=== PATIENT | female | born 1950 | race Caucasian/White ===

== ENCOUNTER 2020-01-19 00:49 | Emergency (ER) | payer MEDICARE, MEDICAID ==
[~2020-01-19] VITALS: Ht 154.9 cm; Wt 63.6 kg
[2020-01-19] MEDS ORDERED: ondansetron/PF 4mg/2ml inj IV ONE ×2 (01:20→02:10)
[2020-01-19] MEDS ORDERED: ketorolac trometh. 30mg/ml inj. IV ONE (01:30)
[2020-01-19] MEDS ORDERED: normal saline 1000ML IV soln IVB ONE (01:30)
[2020-01-19] MEDS ORDERED: morphine 4 MG/ML inj SYRINge IV ONE (02:10)
[2020-01-19 02:43] LABS: BASOPHILS % (AUTO) 0.3 % (0-1); EOSINOPHILS # (AUTO) 0.1 X10'3 (0-0.9); EOSINOPHILS % (AUTO) 0.8 % (0-6); HEMATOCRIT 38.5 % (35.0-45.0); LYMPHOCYTES # (AUTO) 1.2 X10'3 (1.1-4.8); LYMPHOCYTES % (AUTO) 15.5 % (21-51); MEAN CORPUSCULAR HEMOGLOBIN 30.5 PG (27.0-31.0); MEAN CORPUSCULAR HGB CONC 33.7 g/dL (33.0-36.5); MEAN CORPUSCULAR VOLUME 90.7 FL (78-98); MEAN PLATELET VOLUME 9.2 FL (7.4-10.4); MONOCYTES # (AUTO) 0.4 X10'3 (0-0.9); MONOCYTES % (AUTO) 4.6 % (2-12); NEUTROPHILS # (AUTO) 6.3 X10'3 (1.8-7.7); NEUTROPHILS % (AUTO) 78.8 % (42-75); PLATELET COUNT 211 X10'3 (140-440); RED BLOOD COUNT 4.25 X10'6 (4.20-5.60); RED CELL DISTRIBUTION WIDTH 15.5 % (11.5-14.5)
[2020-01-19] MEDS ORDERED: LORazepam 2 mg/ml vial IV ONE (03:15)
[2020-01-19] MEDS ORDERED: iohexol 350MG/ML 100ml bottle IV ONE (03:18)
[2020-01-19] MEDS ORDERED: [UNRECOGNIZED DRUG - REMARK] PO NR (03:30)
[2020-01-19 03:43] LABS: CLARITY,URINE SLIGHTLY CLOUDY (Clear); COLOR,URINE YELLOW (Yellow); GLUCOSE, URINE NEGATIVE (Neg); KETONES,URINE 15 mg/dl (Neg); LEUKOCYTE ESTERASE ,URINE NEGATIVE (Neg); NITRITES, URINE NEGATIVE (Neg); OCCULT BLOOD,URINE NEGATIVE (Neg); PH,URINE 6.5 (4.8-8.0); PROTEIN,URINE NEGATIVE (Neg); UROBILINOGEN,URINE 0.2 E.U/dL (0.2-1.0)
[2020-01-19 03:54] LABS: UA COLLECTION TYPE CLN CATCH MIDSTREAM
[2020-01-19 03:55] LABS: BACTERIA,URINE 2+ /HPF (Neg); RBC,URINE NONE SEEN /HPF (0-2); SQUAMOUS EPITHELIAL CELL,UR FEW /LPF (FEW)
[2020-01-19 04:15] LABS: CHLORIDE 103 MMOL/L (99-107); POTASSIUM 3.4 MMOL/L (3.5-5.1); SODIUM 138 MMOL/L (135-145)
[2020-01-19 04:47] LABS: ALBUMIN 3.4 G/DL (3.4-5.0); ANION GAP 11 (8-16); BLOOD UREA NITROGEN 11 MG/DL (7-18); BUN/CREATININE RATIO 16.4 (6.6-38.0); CREATININE 0.67 MG/DL (0.40-0.90); GLUCOSE 68 MG/DL (70-104); TOTAL CARBON DIOXIDE 24.4 MMOL/L (24-32); eGFR 88 ML/MIN
[2020-01-19 06:40] VITALS: BP 136/63
[2020-01-19] MEDS ORDERED: diazepam 5mg tablet PO ONE (06:40)
== END 2020-01-19 06:47 | disposition home or self-care (01) ==
LOC: ER 00:50
DX: R10.9 Unspecified abdominal pain (principal); Z72.0 Tobacco use
CPT/HCPCS: 36415; 71275; 74176; 74177; 80048; 81001; 85025; 87077; 87088; 87186; 93005; 96361; 96374; 96375; 96376; 99285; J1885; J2060; J2270; J2405; J7030; Q9967

== ENCOUNTER 2021-09-18 11:58 | Inpatient (IN) | payer MEDICARE, MEDICAID ==
[2021-09-18] VITALS (11 sets, daily range): BP systolic 87–128; BP diastolic 35–48
[~2021-09-18] VITALS: Ht 137.2 cm; Wt 59.1 kg
[~2021-09-18 11:58] MED LIST: ACET-1 PO; ASPI-1071 PO; ATOR-2 PO; CYAN-51 PO; CYCL5TAB PO; ERGO500054 PO; ISOS60TA71 PO; LANTUS SQ; LEFL10TA20 PO; LOSA50TA64 PO; METF-1203 PO; METO-539 PO; NOVLG SQ; SPIR25TA PO; TICA90TA PO
[2021-09-18] MEDS ORDERED: normal saline 1000ml 1,000 ML IV ONE ×3 (12:20→18:00)
--- NOTE | 2021-09-18 12:34 | NUR ---
PROVIDER AT BEDSIDE.
[2021-09-18 12:38] LABS: BASOPHILS % (AUTO) 0.2 % (0-1); EOSINOPHILS # (AUTO) 0.1 X10'3 (0-0.9); EOSINOPHILS % (AUTO) 0.5 % (0-6); HEMOGLOBIN 11.9 g/dl (12.0-16.0); LYMPHOCYTES # (AUTO) 1.5 X10'3 (1.1-4.8); LYMPHOCYTES % (AUTO) 9.8 % (21-51); MEAN PLATELET VOLUME 10.6 FL (7.4-10.4); MONOCYTES % (AUTO) 6.3 % (2-12); NEUTROPHILS # (AUTO) 13.1 X10'3 (1.8-7.7); NEUTROPHILS % (AUTO) 83.2 % (42-75); PLATELET COUNT 307 X10'3 (140-440); WHITE BLOOD COUNT 15.7 X10'3 (4.5-11.0)
[2021-09-18] MEDS ORDERED: insulin NPH/REG insulin (NovoLIN 70/30) 10ml vial SQ SCH (12:40)
[2021-09-18] MEDS ORDERED: insulin regular, human 10 units/0.1 ml syringe SQ ONE (12:45)
[2021-09-18 13:02] LABS: CLARITY,URINE SLIGHTLY CLOUDY (Clear); GLUCOSE, URINE >=1000 mg/dl (Neg); KETONES,URINE >=80 mg/dl (Neg); LEUKOCYTE ESTERASE ,URINE NEGATIVE (Neg); NITRITES, URINE POSITIVE (Neg); OCCULT BLOOD,URINE TRACE-INTACT (Neg); PH,URINE 5.5 (4.8-8.0); PROTEIN,URINE NEGATIVE (Neg); UROBILINOGEN,URINE 0.2 E.U/dL (0.2-1.0)
[2021-09-18 13:02] LABS: ALANINE AMINOTRANSFERASE 16 U/L (12-78); ALBUMIN 3.2 G/DL (3.4-5.0); ALBUMIN/GLOBULIN RATIO 0.9 (1.1-1.5); ALKALINE PHOSPHATASE 69 IU/L (46-116); ANION GAP 36 (8-16); ASPARTATE AMINO TRANSFERASE 13 U/L (10-37); BILIRUBIN,TOTAL 0.6 MG/DL (0.1-1.0); BLOOD UREA NITROGEN 34 MG/DL (7-18); BUN/CREATININE RATIO 17.6 (6.6-38.0); CALCIUM 8.8 MG/DL (8.5-10.1); CHLORIDE 82 MMOL/L (99-107); CREATININE 1.93 MG/DL (0.40-0.90); SODIUM 123 MMOL/L (135-145); TOTAL PROTEIN 6.9 G/DL (6.4-8.2); eGFR 26 ML/MIN
[2021-09-18 13:06] LABS: URINE AMPHETAMINE SCREEN NEGATIVE (Neg); URINE BARBITUATE SCREEN NEGATIVE (Neg); URINE BENZODIAZEPINES SCREEN NEGATIVE (Neg); URINE CANNABINOID SCREEN NEGATIVE (Neg); URINE COCAINE SCREEN NEGATIVE (Neg); URINE METHADONE SCREEN NEGATIVE (Neg); URINE OPIATE SCREEN POSITIVE (Neg); URINE PHENCYCLIDINE SCREEN NEGATIVE (Neg)
[2021-09-18 13:14] LABS: HEMATOCRIT 35.3 % (35.0-45.0); RED BLOOD COUNT 3.91 X10'6 (4.20-5.60)
[2021-09-18 13:15] LABS: MEAN CORPUSCULAR HEMOGLOBIN 30.3 PG (27.0-31.0); MEAN CORPUSCULAR HGB CONC 33.6 g/dL (33.0-36.5); MEAN CORPUSCULAR VOLUME 90.4 FL (78-98); RED CELL DISTRIBUTION WIDTH 14.7 % (11.5-14.5)
--- NOTE | 2021-09-18 13:15 | NUR ---
G drawn critical results hand delivered to Bruce WISE and Dr. Golden, no new orders given.
[2021-09-18 13:16] LABS: COLOR,URINE STRAW (Yellow); UA COLLECTION TYPE STRAIGHT CATH
[2021-09-18 13:18] LABS: RBC,URINE 0-2 /HPF (0-2)
[2021-09-18 13:19] LABS: AMORPHOUS URATES 1+; BACTERIA,URINE 1+ /HPF (Neg); HYALINE CASTS 0-3 /LPF (NEGATIVE); MUCUS STRANDS NONE SEEN /LPF (Neg); RENAL CELLS, URINE FEW /HPF; SQUAMOUS EPITHELIAL CELL,UR NONE SEEN /LPF (FEW); WBC CLUMPS,URINE FEW /HPF (NEGATIVE)
[2021-09-18 13:24] LABS: ABG BASE EXCESS -22.9 mmol/L (-2.0-2.0); ABG HCO3 4.8 mmol/L (22.0-26.0); ABG OXYGEN SATURATION 96.7 % (94-97); ABG PO2 (T) 111.9 mmHg (75.0-100.0); ALLEN'S TEST POSITIVE; FCOHb 0.4 % (0.0-3.9); FMetHb 0.1 % (0.0-1.5); FO2Hb 96.2 % (94-97); TOTAL HEMOGLOBIN 11.7 G/dl (12.0-16.0)
[2021-09-18] MEDS ORDERED: normal saline 1000ML IV soln IVB ONE (13:25)
[2021-09-18] MEDS ORDERED: Insulin Reg/NS 100units/100mL 100 ML IV PRN (13:25)
[2021-09-18] MEDS ORDERED: cefTRIAXone 1g/NS 100ml IVPB 100 ML IV ONE (13:25)
[2021-09-18 13:37] LABS: POTASSIUM 6.6 MMOL/L (3.5-5.1); TOTAL CARBON DIOXIDE 5.5 MMOL/L (24-32)
[2021-09-18 13:39] LABS: GLUCOSE 1160 MG/DL (70-104)
[2021-09-18 13:56] LABS: TOTAL CELLS COUNTED 100
[2021-09-18 13:57] LABS: ANISOCYTOSIS 1+; GIANT PLATELET FEW; PLATELET ESTIMATE NORMAL; TOXIC GRANULATION 1+
[2021-09-18 13:58] LABS: LARGE PLATELETS FEW
[2021-09-18] MEDS ORDERED: morphine 4 MG/ML inj SYRINge IV PRN (14:45)
[2021-09-18] MEDS ORDERED: ondansetron/PF 4mg/2ml inj IV PRN (14:45)
[2021-09-18] MEDS ORDERED: magnesium hydroxide 30ml (MOM) UD suspension PO PRN (14:45)
[2021-09-18] MEDS ORDERED: acetaminophen 325mg tablet PO PRN ×2 (14:45)
[2021-09-18] MEDS ORDERED: LIDOcaine 2% 10ml TOPICAL JELLY (Urojet) TP ONE ×2 (14:45→18:20)
--- NOTE | 2021-09-18 15:20 | NUR ---
TELEPHONE REPORT TO JAIR MILES.
[2021-09-18 15:55] LABS: ALBUMIN 3.1 G/DL (3.4-5.0); BLOOD UREA NITROGEN 34 MG/DL (7-18); BUN/CREATININE RATIO 18.4 (6.6-38.0); CALCIUM 8.3 MG/DL (8.5-10.1); CHLORIDE 93 MMOL/L (99-107); CREATININE 1.85 MG/DL (0.40-0.90); POTASSIUM 5.5 MMOL/L (3.5-5.1); SODIUM 131 MMOL/L (135-145); eGFR 27 ML/MIN
[2021-09-18] MEDS ORDERED: cyclobenzaprine 10mg tablet PO PRN (15:55)
[2021-09-18] MEDS ORDERED: heparin, porcine 5000 units/ml vial SQ SCH (16:00)
[2021-09-18 16:11] LABS: ANION GAP 33 (8-16)
[2021-09-18 16:12] LABS: GLUCOSE 985 MG/DL (70-104)
[2021-09-18 16:13] LABS: TOTAL CARBON DIOXIDE < 5 MMOL/L (24-32)
[2021-09-18] MEDS: normal saline 1000ml 1,000 ML IV SCH ×3 (17:00→22:45)
--- NOTE | 2021-09-18 17:14 | NUR ---
Family @ bedside for Admission. Grand daughter very helpful and knowledgable about grandmothers medical care. Granddaughter states patient had some mild chest discomfort during the day with some nausea and vomiting noted after eating.
[2021-09-18] MEDS ORDERED: heparin 10,000 units/1 ML INJ IV ONE (18:00)
[2021-09-18] MEDS ORDERED: heparin 10,000 units/1 ML INJ IV PRN (18:00)
--- NOTE | 2021-09-18 18:30 | NUR ---
Patient in room CICU 2007. I have received report from Marco ADAM and had the opportunity to ask questions and assume patient care. Patient hypotensive, 1LNS bolus started.
[2021-09-18 18:57] LABS: BASOPHILS % (AUTO) 0.2 % (0-1); EOSINOPHILS % (AUTO) 0.1 % (0-6); HEMATOCRIT 37.7 % (35.0-45.0); HEMOGLOBIN 11.7 g/dl (12.0-16.0); LYMPHOCYTES # (AUTO) 2.4 X10'3 (1.1-4.8); LYMPHOCYTES % (AUTO) 11.7 % (21-51); MEAN CORPUSCULAR HEMOGLOBIN 30.3 PG (27.0-31.0); MEAN CORPUSCULAR VOLUME 97.9 FL (78-98); MEAN PLATELET VOLUME 9.6 FL (7.4-10.4); NEUTROPHILS # (AUTO) 16.6 X10'3 (1.8-7.7); PLATELET COUNT 258 X10'3 (140-440); RED BLOOD COUNT 3.85 X10'6 (4.20-5.60); RED CELL DISTRIBUTION WIDTH 16.5 % (11.5-14.5)
[2021-09-18 19:04] LABS: APTT 25 SECONDS (22-32)
[2021-09-18 19:16] LABS: ALBUMIN 3.1 G/DL (3.4-5.0); ANION GAP 28 (8-16); BLOOD UREA NITROGEN 29 MG/DL (7-18); BUN/CREATININE RATIO 17.9 (6.6-38.0); CALCIUM 8.2 MG/DL (8.5-10.1); CHLORIDE 98 MMOL/L (99-107); CREATININE 1.62 MG/DL (0.40-0.90); MAGNESIUM 1.9 MG/DL (1.5-2.4); POTASSIUM 4.2 MMOL/L (3.5-5.1); SODIUM 136 MMOL/L (135-145); eGFR 32 ML/MIN
[2021-09-18 19:21] LABS: GLUCOSE 583 MG/DL (70-104)
[2021-09-18 19:22] LABS: TOTAL CARBON DIOXIDE 9.7 MMOL/L (24-32)
[2021-09-18] MEDS: ticagrelor 90mg tablet PO SCH (20:00)
[2021-09-18] MEDS ORDERED: NPH, human insulin isophane inj. SQ SCH (20:00)
[2021-09-18] MEDS: heparin 25,000 UNIT/250ml bag 250 ML IV SCH (20:11)
[2021-09-18] MEDS ORDERED: dextrose 50%-water 50ml dispensing syringe IV ONE (20:40)
--- NOTE | 2021-09-18 20:40 | NUR ---
Central line placed by . Orders received.
[2021-09-18] MEDS ORDERED: Dextrose 10%-water IV solution 1,000 ML IV SCH (20:50)
[2021-09-18] MEDS ORDERED: NORMAL SALINE IVB ONE (21:35)
[2021-09-19] VITALS (24 sets, daily range): BP systolic 91–145; BP diastolic 41–67
[2021-09-19] MEDS ORDERED: normal saline 1000ml 1,000 ML IVB ONE ×2 (00:05→03:50)
[2021-09-19] MEDS ORDERED: dextrose 50%-water 50ml dispensing syringe IV ONE (00:05)
--- NOTE | 2021-09-19 00:05 | NUR ---
Dr. Beth updated on patient's condition, including latest blood sugar. Orders received. 1LNS fluid bolus started. Awaiting current lab results.
[2021-09-19 00:38] LABS: BASOPHILS % (AUTO) 0.1 % (0-1); EOSINOPHILS % (AUTO) 0 % (0-6); HEMATOCRIT 28.3 % (35.0-45.0); HEMOGLOBIN 9.4 g/dl (12.0-16.0); LYMPHOCYTES # (AUTO) 1.7 X10'3 (1.1-4.8); LYMPHOCYTES % (AUTO) 11.6 % (21-51); MEAN CORPUSCULAR HGB CONC 33.2 g/dL (33.0-36.5); MEAN CORPUSCULAR VOLUME 90.4 FL (78-98); MEAN PLATELET VOLUME 9.3 FL (7.4-10.4); MONOCYTES # (AUTO) 1.3 X10'3 (0-0.9); NEUTROPHILS # (AUTO) 11.3 X10'3 (1.8-7.7); NEUTROPHILS % (AUTO) 79.3 % (42-75); PLATELET COUNT 219 X10'3 (140-440); RED BLOOD COUNT 3.13 X10'6 (4.20-5.60); RED CELL DISTRIBUTION WIDTH 14.9 % (11.5-14.5); WHITE BLOOD COUNT 14.2 X10'3 (4.5-11.0)
[2021-09-19] MEDS: morphine 2 MG/ML inj. syringe IV PRN (00:41)
[2021-09-19 00:46] LABS: ALBUMIN 2.4 G/DL (3.4-5.0); ANION GAP 13 (8-16); BLOOD UREA NITROGEN 18 MG/DL (7-18); BUN/CREATININE RATIO 22.8 (6.6-38.0); CALCIUM 6.8 MG/DL (8.5-10.1); CHLORIDE 111 MMOL/L (99-107); CREATININE 0.79 MG/DL (0.40-0.90); GLUCOSE 247 MG/DL (70-104); MAGNESIUM 1.3 MG/DL (1.5-2.4); PHOSPHORUS 1.6 MG/DL (2.3-4.5); POTASSIUM 3.4 MMOL/L (3.5-5.1); SODIUM 140 MMOL/L (135-145); eGFR 72 ML/MIN
[2021-09-19] MEDS ORDERED: magnesium Cl slow-release 64mg tablet PO PRN (01:45)
[2021-09-19] MEDS ORDERED: magnesium 2GM in 50ml NS 50 ML IV PRN (01:45)
[2021-09-19] MEDS ORDERED: potassium Cl 20mEq/100mL bag 100 ML IV ONE (01:45)
[2021-09-19] MEDS ORDERED: magnesium 4gm in 100ml NS 100 ML IV ONE (01:45)
[2021-09-19] MEDS ORDERED: magnesium 4gm in 100ml NS 100 ML IV PRN (01:45)
[2021-09-19] MEDS ORDERED: potassium phosphate inj 30 MMOL in normal saline 500ml IV soln 500 ML IV ONE (01:45)
--- NOTE | 2021-09-19 02:24 | NUR ---
Dr. Beth updated on patient's current status including current critical value. Orders placed by practitioner.
[2021-09-19] MEDS: normal saline 1000ml 1,000 ML IV SCH (02:45)
[2021-09-19 04:10] LABS: ABG BASE EXCESS -10.9 mmol/L (-2.0-2.0); ABG HCO3 13.4 mmol/L (22.0-26.0); ABG OXYGEN SATURATION 93.5 % (94-97); ABG PCO2 (T) 26.1 mmHg (32.0-45.0); ABG PO2 (T) 70.4 mmHg (75.0-100.0); ALLEN'S TEST POSITIVE; FCOHb 0.3 % (0.0-3.9); FLOW 2 L/min; FMetHb 0.1 % (0.0-1.5); FO2Hb 93.1 % (94-97); PATIENT TEMPERATURE 37.5; TOTAL HEMOGLOBIN 10.4 G/dl (12.0-16.0)
[2021-09-19] MEDS ORDERED: SPIR25TA5 PO ×2 (05:10→05:16)
[2021-09-19] MEDS ORDERED: LOSA25TA41 PO (05:10)
[2021-09-19] MEDS ORDERED: AMLO5TAB16 PO (05:10)
[2021-09-19] MEDS ORDERED: METO-395 PO (05:10)
[2021-09-19] MEDS ORDERED: ASPI-1397 PO (05:10)
[2021-09-19] MEDS ORDERED: TICA90TA2 PO (05:10)
[2021-09-19] MEDS ORDERED: SITA100T15 PO (05:10)
[2021-09-19] MEDS ORDERED: ETAN50PE3 SQ (05:15)
[2021-09-19 06:01] LABS: ALBUMIN 2.2 G/DL (3.4-5.0); ANION GAP 10 (8-16); BLOOD UREA NITROGEN 12 MG/DL (7-18); BUN/CREATININE RATIO 17.9 (6.6-38.0); CALCIUM 6.5 MG/DL (8.5-10.1); CHLORIDE 114 MMOL/L (99-107); CREATININE 0.67 MG/DL (0.40-0.90); GLUCOSE 185 MG/DL (70-104); MAGNESIUM 1.4 MG/DL (1.5-2.4); PHOSPHORUS 2.4 MG/DL (2.3-4.5); POTASSIUM 3.7 MMOL/L (3.5-5.1); SODIUM 141 MMOL/L (135-145); TOTAL CARBON DIOXIDE 16.8 MMOL/L (24-32); eGFR 87 ML/MIN
--- NOTE | 2021-09-19 06:21 | NUR ---
Problems reprioritized. Patient report given, questions answered & plan of care reviewed with Jarod ADAM.
--- NOTE | 2021-09-19 06:30 | NUR ---
Dr Beth called to ask about pt. Discuused lab results. Liseth ordered.
[2021-09-19] MEDS ORDERED: furosemide 40mg/4ml inj IV ONE (06:40)
[2021-09-19 06:46] LABS: ALANINE AMINOTRANSFERASE 13 U/L (12-78); ALBUMIN/GLOBULIN RATIO 0.9 (1.1-1.5); ALKALINE PHOSPHATASE 48 IU/L (46-116); ASPARTATE AMINO TRANSFERASE 22 U/L (10-37); BILIRUBIN,DIRECT 0.1 MG/DL (0-0.3); BILIRUBIN,TOTAL 0.2 MG/DL (0.1-1.0); TOTAL PROTEIN 4.6 G/DL (6.4-8.2)
--- NOTE | 2021-09-19 07:21 | NUR ---
Initial: Pt admitted w/ DKA, Azotemia, Hyperkalemia, Hyponatremia, and Septic shock caused by UTI per EMR. A1c last month was 9.6 and pt received DM ed on prior admit 08/20. Currently on Heart Healthy diet pending PO intake, confused per MD note, documented to be A&O x 2. Recommend changing to Carb control diet given DM hx. LBM 09/17. Will continue to monitor PO trends prior to making nutrition intervention. Recs: 1. Change to Carb control diet 2. Monitor need for ONS/additional protein pending PO trends 3. Bowel care per rx 4. Scaled wts Addendum: 09/19/21 at [address] Amended: Links added.
[2021-09-19] MEDS: metoprolol succinate 25mg (24-HOUR) SR. Tablet PO SCH (07:31)
[2021-09-19] MEDS: atorvastatin 20mg tablet PO SCH (07:31)
[2021-09-19] MEDS: losartan 25mg tablet PO SCH (07:31)
[2021-09-19] MEDS: aspirin 81mg, enteric-coated 1 TAB TABLET.DR PO SCH (07:31)
[2021-09-19] MEDS: cefTRIAXone 1g/NS 100ml IVPB 100 ML IV SCH (07:32)
[2021-09-19] MEDS: ticagrelor 90mg tablet PO SCH ×2 (07:35→19:30)
[2021-09-19] MEDS: LEFLUNOMIDE 10 MG TABLET PO SCH (07:36)
[2021-09-19] MEDS ORDERED: K and/or MAG REPLACEMENT MC SCH (08:00)
[2021-09-19] MEDS: K and/or MAG REPLACEMENT MC SCH (08:00)
[2021-09-19] MEDS ORDERED: dextrose 50%-water 50ml dispensing syringe IV PRN ×2 (08:40)
[2021-09-19] MEDS ORDERED: glucagon, human recombinant 1mg kit SUBCUT PRN (08:40)
[2021-09-19] MEDS ORDERED: MESSAGE TO PHARMACY PO ONE (08:40)
[2021-09-19] MEDS ORDERED: DEXTROSE 15 GM of carb/4 tabs (each vial/BOTTLE has 4 tablets) PO PRN ×2 (08:40)
[2021-09-19] MEDS: potassium CL 20mEq in D5-1/2NS 1,000 ML IV SCH ×2 (08:53→22:24)
[2021-09-19] MEDS ORDERED: NORepinephrine 8mg/ 250ml NS 250 ML IV SCH (09:25)
[2021-09-19] MEDS ORDERED: normal saline 1000ml 1,000 ML IV ONE (10:45)
[2021-09-19] MEDS ORDERED: Insulin Reg/NS 100units/100mL 100 ML IV SCH (10:45)
--- NOTE | 2021-09-19 11:29 | NUR ---
Called pharmacy to enquire about Imdur tabs and Humalog. Pharmacy floor is being waxed and Humalog is inaccessible at this time. ETA for insulin 1 hr, Imdur is being sent. Pt restarted on Insulin gtt as blood glucose is climbing without insulin coverage. Dr Price aware.
[2021-09-19] MEDS: insulin Lispro (HumaLOG) vial - multi-dose SQ SCH ×3 (13:43→22:18)
[2021-09-19] MEDS: isosorbide mononitrate 30mg tab.SR.24H PO SCH (14:16)
[2021-09-19] MEDS: heparin 25,000 UNIT/250ml bag 250 ML IV SCH (14:24)
--- NOTE | 2021-09-19 18:27 | NUR ---
Problems reprioritized. Patient report given, questions answered & plan of care reviewed.
[2021-09-19 18:56] LABS: APTT 73 SECONDS (22-32)
[2021-09-19] MEDS ORDERED: valproate sod 250mg/5ml UD oral syrup NG SCH (20:00)
[2021-09-19] MEDS ORDERED: insulin glargine (Lantus) pen - multi-dose SQ SCH (21:00)
[2021-09-20] VITALS (21 sets, daily range): BP systolic 125–160; BP diastolic 56–79
[2021-09-20 00:28] LABS: BASOPHILS % (AUTO) 0.1 % (0-1); EOSINOPHILS # (AUTO) 0.1 X10'3 (0-0.9); EOSINOPHILS % (AUTO) 0.4 % (0-6); HEMOGLOBIN 9.2 g/dl (12.0-16.0); LYMPHOCYTES # (AUTO) 3.2 X10'3 (1.1-4.8); LYMPHOCYTES % (AUTO) 24.6 % (21-51); MEAN CORPUSCULAR HGB CONC 32.8 g/dL (33.0-36.5); MEAN CORPUSCULAR VOLUME 91.3 FL (78-98); MEAN PLATELET VOLUME 9.2 FL (7.4-10.4); MONOCYTES # (AUTO) 0.8 X10'3 (0-0.9); MONOCYTES % (AUTO) 6.2 % (2-12); NEUTROPHILS # (AUTO) 8.9 X10'3 (1.8-7.7); NEUTROPHILS % (AUTO) 68.7 % (42-75); PLATELET COUNT 190 X10'3 (140-440); RED BLOOD COUNT 3.06 X10'6 (4.20-5.60); RED CELL DISTRIBUTION WIDTH 15.4 % (11.5-14.5)
[2021-09-20 00:45] LABS: ALBUMIN 2.1 G/DL (3.4-5.0); ANION GAP 12 (8-16); BLOOD UREA NITROGEN 7 MG/DL (7-18); BUN/CREATININE RATIO 10.8 (6.6-38.0); CALCIUM 7.1 MG/DL (8.5-10.1); CHLORIDE 113 MMOL/L (99-107); CREATININE 0.65 MG/DL (0.40-0.90); GLUCOSE 219 MG/DL (70-104); MAGNESIUM 1.9 MG/DL (1.5-2.4); POTASSIUM 3.2 MMOL/L (3.5-5.1); SODIUM 143 MMOL/L (135-145); TOTAL CARBON DIOXIDE 18.3 MMOL/L (24-32); eGFR 90 ML/MIN
[2021-09-20 06:16] LABS: ALBUMIN 2.1 G/DL (3.4-5.0); ANION GAP 11 (8-16); BLOOD UREA NITROGEN 5 MG/DL (7-18); BUN/CREATININE RATIO 9.4 (6.6-38.0); CALCIUM 7.3 MG/DL (8.5-10.1); CHLORIDE 113 MMOL/L (99-107); CREATININE 0.53 MG/DL (0.40-0.90); GLUCOSE 279 MG/DL (70-104); MAGNESIUM 1.9 MG/DL (1.5-2.4); POTASSIUM 3.3 MMOL/L (3.5-5.1); SODIUM 143 MMOL/L (135-145); TOTAL CARBON DIOXIDE 19.2 MMOL/L (24-32); eGFR > 90 ML/MIN
[2021-09-20] MEDS: LEFLUNOMIDE 10 MG TABLET PO SCH (07:40)
[2021-09-20] MEDS: isosorbide mononitrate 30mg tab.SR.24H PO SCH (07:40)
[2021-09-20] MEDS: losartan 25mg tablet PO SCH (07:41)
[2021-09-20] MEDS: metoprolol succinate 25mg (24-HOUR) SR. Tablet PO SCH (07:41)
[2021-09-20] MEDS: atorvastatin 20mg tablet PO SCH (07:41)
[2021-09-20] MEDS: ticagrelor 90mg tablet PO SCH ×2 (07:41→20:00)
[2021-09-20] MEDS: aspirin 81mg, enteric-coated 1 TAB TABLET.DR PO SCH (07:41)
[2021-09-20] MEDS: cefTRIAXone 1g/NS 100ml IVPB 100 ML IV SCH (07:42)
[2021-09-20] MEDS: potassium Cl 20mEq/100mL bag 100 ML IV PRN ×2 (07:42→10:02)
[2021-09-20 07:45] LABS: PHOSPHORUS 1.3 MG/DL (2.3-4.5)
[2021-09-20] MEDS: K and/or MAG REPLACEMENT MC SCH (08:00)
[2021-09-20] MEDS ORDERED: sodium phosphate inj. 30 MMOL in dextrose 5% water 500ml 500 ML IV PRN (08:25)
[2021-09-20] MEDS ORDERED: Neutra Phos packet PO PRN (08:25)
[2021-09-20] MEDS ORDERED: sodium phosphate inj. 15 MMOL in dextrose 5%-water 250 ML IV PRN (08:25)
[2021-09-20] MEDS: insulin Lispro (HumaLOG) vial - multi-dose SQ SCH ×3 (09:20→18:22)
[2021-09-20 09:50] LABS: C DIFF SPECIMEN=DIARRHEA? ACCEPTABLE; C DIFFICILE TOXINS A&B NEGATIVE (Neg)
[2021-09-20] MEDS ORDERED: nitroGLYCERIN 0.4mg SUBLingual tab SL PRN (11:00)
[2021-09-20] MEDS ORDERED: metoprolol tartrate 1mg/ml inj IV PRN (11:00)
[2021-09-20] MEDS ORDERED: regadenoson 0.4mg/5ml syringe IV PRN (11:00)
[2021-09-20] MEDS ORDERED: aminophylline 250mg/10ml inj. IV PRN (11:00)
[2021-09-20 11:05] LABS: MAGNESIUM 1.6 MG/DL (1.5-2.4)
[2021-09-20] MEDS ORDERED: loperamide 2mg capsule PO PRN (11:10)
[2021-09-20] MEDS: spironolactone 25 MG tablet PO SCH (11:44)
[2021-09-20 12:08] LABS: OCCULT BLOOD STOOL POSITIVE (Neg)
[2021-09-20] MEDS: potassium CL 20mEq in D5-1/2NS 1,000 ML IV SCH (13:39)
[2021-09-20] MEDS: amLODIPine 5mg tablet PO SCH (13:41)
[2021-09-20] MEDS: acetaminophen w/codeine (30MG) #3 tablet PO PRN (23:09)
[2021-09-21] VITALS (24 sets, daily range): BP systolic 103–158; BP diastolic 49–77
[2021-09-21] MEDS: morphine 2 MG/ML inj. syringe IV PRN (02:14)
[2021-09-21] MEDS: potassium CL 20mEq in D5-1/2NS 1,000 ML IV SCH ×3 (02:30→21:27)
[2021-09-21 04:09] LABS: BASOPHILS % (AUTO) 0.1 % (0-1); EOSINOPHILS # (AUTO) 0.1 X10'3 (0-0.9); EOSINOPHILS % (AUTO) 1.6 % (0-6); HEMATOCRIT 27.5 % (35.0-45.0); HEMOGLOBIN 9.4 g/dl (12.0-16.0); LYMPHOCYTES # (AUTO) 2.4 X10'3 (1.1-4.8); LYMPHOCYTES % (AUTO) 28.3 % (21-51); MEAN CORPUSCULAR HEMOGLOBIN 30.6 PG (27.0-31.0); MEAN CORPUSCULAR HGB CONC 34.2 g/dL (33.0-36.5); MEAN CORPUSCULAR VOLUME 89.3 FL (78-98); MEAN PLATELET VOLUME 9.1 FL (7.4-10.4); MONOCYTES # (AUTO) 0.6 X10'3 (0-0.9); MONOCYTES % (AUTO) 7.3 % (2-12); NEUTROPHILS # (AUTO) 5.3 X10'3 (1.8-7.7); NEUTROPHILS % (AUTO) 62.7 % (42-75); PLATELET COUNT 168 X10'3 (140-440); RED BLOOD COUNT 3.08 X10'6 (4.20-5.60); RED CELL DISTRIBUTION WIDTH 15.2 % (11.5-14.5); WHITE BLOOD COUNT 8.4 X10'3 (4.5-11.0)
[2021-09-21 04:18] LABS: MAGNESIUM 1.6 MG/DL (1.5-2.4); POTASSIUM 3.4 MMOL/L (3.5-5.1)
[2021-09-21] MEDS: potassium Cl 20mEq/100mL bag 100 ML IV PRN ×2 (05:34→07:22)
--- NOTE | 2021-09-21 06:27 | NUR ---
Patient in room CICU 2007. I have received report from Rosemary ADAM and had the opportunity to ask questions and assume patient care. Pt up to commode at with Rosemary ADAM assist and returned to bed after. Positioned to comfort and lab in to draw AMs.
[2021-09-21 06:51] LABS: MAGNESIUM 1.6 MG/DL (1.5-2.4)
[2021-09-21] MEDS: cefTRIAXone 1g/NS 100ml IVPB 100 ML IV SCH (07:22)
[2021-09-21] MEDS: atorvastatin 20mg tablet PO SCH (07:23)
[2021-09-21] MEDS: spironolactone 25 MG tablet PO SCH (07:23)
[2021-09-21] MEDS: linagliptin 5mg tablet PO SCH (07:24)
[2021-09-21] MEDS: LEFLUNOMIDE 10 MG TABLET PO SCH (07:24)
[2021-09-21] MEDS: ticagrelor 90mg tablet PO SCH ×2 (07:24→19:36)
[2021-09-21] MEDS: losartan 25mg tablet PO SCH (07:24)
[2021-09-21] MEDS: metoprolol succinate 25mg (24-HOUR) SR. Tablet PO SCH (07:24)
[2021-09-21] MEDS: amLODIPine 5mg tablet PO SCH (07:24)
[2021-09-21] MEDS: cyanocobalamin 500mcg tablet PO SCH (07:24)
[2021-09-21] MEDS: isosorbide mononitrate 30mg tab.SR.24H PO SCH (07:24)
[2021-09-21] MEDS: aspirin 81mg, enteric-coated 1 TAB TABLET.DR PO SCH (07:25)
[2021-09-21] MEDS: K and/or MAG REPLACEMENT MC SCH (07:25)
[2021-09-21] MEDS: insulin glargine (Lantus) pen - multi-dose SQ SCH (08:00)
[2021-09-21] MEDS ORDERED: aminophylline 500mg/20ml vial ONE (09:02)
--- NOTE | 2021-09-21 09:34 | NUR ---
Nuc Med Pt preped and then taken to Nuc Med for stress test. IV's were saline locked and pt on a tele monitor for procedure. Nuc med staff took pt via WC after using commode for urination again.
[2021-09-21 10:09] LABS: HEMOGLOBIN A1C 9.8 % (4.5-6.2)
--- NOTE | 2021-09-21 11:22 | NUR ---
Returned to unit Pt back from [facility] in . Tolerated procedure well. Positioned to comfort in bed, provided breakfast, fam to see pt. After discussion with CN, pt remains on Tele unit as plan is to go to Tele later today.
[2021-09-21] MEDS ORDERED: POTASSIUM BICARB 20meq eff tab 20 MEQ TABLET.EFF PO PRN (12:10)
--- NOTE | 2021-09-21 12:23 | NUR ---
IV Rt forearm IV valente with K. Call to Dr. Hollingsworth to change to PO per pharm. IV saline locked. Rt shoulder IV D/C'd also.
[2021-09-21] MEDS: insulin Lispro (HumaLOG) vial - multi-dose SQ SCH ×2 (13:45→21:15)
[2021-09-21] MEDS: POTASSIUM BICARB 20meq eff tab 20 MEQ TABLET.EFF PO PRN ×2 (14:30→19:36)
[2021-09-21] MEDS: heparin 25,000 UNIT/250ml bag 250 ML IV SCH (16:32)
--- NOTE | 2021-09-21 16:39 | NUR ---
Pt transferred to 3012A with belongings that were transported by family member. Pt in WC and meds were given to Astrid RN as well as pt chart. Pt transferred from WC to bed with minimal assist, positioned to comfort, side rails up x 2 and bed in low position. Problems reprioritized. Patient report given, questions answered & plan of care reviewed with Astrid ADAM.
--- NOTE | 2021-09-21 18:08 | NUR ---
gave report to Jarod PHILLIPS. Patient resting in bed in no acute distress.
--- NOTE | 2021-09-21 18:30 | NUR ---
Patient in room PCU 3012. I have received report from johnathon and had the opportunity to ask questions and assume patient care.
--- NOTE | 2021-09-21 21:28 | NUR ---
RESOURCE NURSE TALKED TO CHARGE ABOUT KCL D5W. BECAUSE PT NO LONGER ON INSULIN DRIP AND PO EATING, WE THREE DECIDED NO NEED
[2021-09-21] MEDS: acetaminophen w/codeine (30MG) #3 tablet PO PRN (22:01)
[2021-09-22 02:00] VITALS: BP 159/77
[2021-09-22 06:00] VITALS: BP 146/69
--- NOTE | 2021-09-22 06:06 | NUR ---
Patient in room PCU 3012A. I have received report from GUALBERTO Olivera and had the opportunity to ask questions and assume patient care.
--- NOTE | 2021-09-22 06:18 | NUR ---
Problems reprioritized. Patient report given, questions answered & plan of care reviewed with mima.
[2021-09-22 06:38] LABS: BASOPHILS % (AUTO) 0.2 % (0-1); EOSINOPHILS # (AUTO) 0.2 X10'3 (0-0.9); EOSINOPHILS % (AUTO) 2.6 % (0-6); HEMATOCRIT 29.7 % (35.0-45.0); LYMPHOCYTES # (AUTO) 1.6 X10'3 (1.1-4.8); LYMPHOCYTES % (AUTO) 20.2 % (21-51); MEAN CORPUSCULAR HEMOGLOBIN 30.1 PG (27.0-31.0); MEAN CORPUSCULAR HGB CONC 33.5 g/dL (33.0-36.5); MEAN CORPUSCULAR VOLUME 89.8 FL (78-98); MEAN PLATELET VOLUME 9.4 FL (7.4-10.4); MONOCYTES # (AUTO) 0.7 X10'3 (0-0.9); MONOCYTES % (AUTO) 8.7 % (2-12); NEUTROPHILS # (AUTO) 5.5 X10'3 (1.8-7.7); NEUTROPHILS % (AUTO) 68.3 % (42-75); PLATELET COUNT 172 X10'3 (140-440); RED BLOOD COUNT 3.31 X10'6 (4.20-5.60); RED CELL DISTRIBUTION WIDTH 15.4 % (11.5-14.5); WHITE BLOOD COUNT 8.1 X10'3 (4.5-11.0)
[2021-09-22 07:11] LABS: ALANINE AMINOTRANSFERASE 11 U/L (12-78); ALBUMIN 2.3 G/DL (3.4-5.0); ALBUMIN/GLOBULIN RATIO 0.7 (1.1-1.5); ALKALINE PHOSPHATASE 72 IU/L (46-116); ANION GAP 13 (8-16); ASPARTATE AMINO TRANSFERASE 15 U/L (10-37); BILIRUBIN,TOTAL 0.8 MG/DL (0.1-1.0); BLOOD UREA NITROGEN 7 MG/DL (7-18); BUN/CREATININE RATIO 11.5 (6.6-38.0); CALCIUM 8.5 MG/DL (8.5-10.1); CHLORIDE 104 MMOL/L (99-107); CREATININE 0.61 MG/DL (0.40-0.90); GLUCOSE 387 MG/DL (70-104); POTASSIUM 4.6 MMOL/L (3.5-5.1); SODIUM 136 MMOL/L (135-145); TOTAL CARBON DIOXIDE 19.4 MMOL/L (24-32); TOTAL PROTEIN 5.6 G/DL (6.4-8.2); eGFR > 90 ML/MIN
[2021-09-22] MEDS: isosorbide mononitrate 30mg tab.SR.24H PO SCH (08:00)
[2021-09-22] MEDS ORDERED: K and/or MAG REPLACEMENT MC SCH (08:00)
[2021-09-22] MEDS: linagliptin 5mg tablet PO SCH (08:00)
[2021-09-22] MEDS: atorvastatin 20mg tablet PO SCH (08:00)
[2021-09-22] MEDS: metoprolol succinate 25mg (24-HOUR) SR. Tablet PO SCH (08:01)
[2021-09-22] MEDS: ticagrelor 90mg tablet PO SCH (08:01)
[2021-09-22] MEDS: aspirin 81mg, enteric-coated 1 TAB TABLET.DR PO SCH (08:01)
[2021-09-22] MEDS: spironolactone 25 MG tablet PO SCH (08:01)
[2021-09-22] MEDS: cyanocobalamin 500mcg tablet PO SCH (08:02)
[2021-09-22] MEDS: amLODIPine 5mg tablet PO SCH (08:02)
[2021-09-22] MEDS: losartan 25mg tablet PO SCH (08:02)
[2021-09-22] MEDS: LEFLUNOMIDE 10 MG TABLET PO SCH (08:02)
[2021-09-22] MEDS: cefTRIAXone 1g/NS 100ml IVPB 100 ML IV SCH (08:05)
[2021-09-22] MEDS: potassium CL 20mEq in D5-1/2NS 1,000 ML IV SCH (08:11)
[2021-09-22] MEDS: insulin glargine (Lantus) pen - multi-dose SQ SCH (08:20)
[2021-09-22] MEDS: insulin Lispro (HumaLOG) vial - multi-dose SQ SCH (08:24)
--- NOTE | 2021-09-22 08:37 | NUR ---
Reassessment: Pt continues on Heart Healthy diet w/ mostly 25% intake of meals though was up to 100% of dinner last night. If pt continues to consume 75-100% of meal then no nutrition intervention will be needed, though recommend changing to Carb control diet given admitting dx. BENITEZ 09/21. Will continue to monitor. Recs: 1. Change to Carb control diet 2. Monitor need for ONS pending further PO trends 3. Bowel care per rx 4. Scaled wts Addendum: 09/22/21 at [address] Amended: Links added.
[2021-09-22 11:00] VITALS: BP 99/59
[2021-09-22] MEDS ORDERED: ATOR20TA66 PO (11:19)
--- NOTE | 2021-09-22 12:58 | NUR ---
Patient ambulated with a steady gait out of PCU floor accompanied by granddaughter. Patient verbalized understanding to all education and discharge instructions provided. IV discontinued. Patient denied any pain or discomfort. All belongings sent home with patient. Patient aware to call or come back to facility if conditions change or worsen or if she has any questions or concerns.
[2021-09-23] MEDS ORDERED: ETANERCEPT 50 MG SQ SCH (10:00)
[2021-09-24] MEDS ORDERED: ergocalciferol (vit D2) capsule 50,000 UNITS (1,250mcg) CAPSULE PO SCH (08:00)
== END 2021-09-22 12:58 | disposition home health service (06) | DRG 871 ==
LOC: ER 11:59 → ED HOLD 15:02 → CICU 2S 15:42 → PCU 3S 09-21 16:26
PROVIDERS: ADMIT Internal Medicine Critical Care Medicine; ATTEND Internal Medicine
PROC: 4A02XM4 Measurement of Cardiac Total Activity, External Approach (ICD-10-PCS; principal; 2021-09-21)
PROC: 3E033HZ Introduction of Radioactive Substance into Peripheral Vein, Percutaneous Approach (ICD-10-PCS; 2021-09-21)
DX: A41.51 Sepsis due to Escherichia coli [E. coli] (principal); E11.10 Type 2 diabetes mellitus with ketoacidosis without coma; G93.41 Metabolic encephalopathy; R65.21 Severe sepsis with septic shock; I21.4 Non-ST elevation (NSTEMI) myocardial infarction; E87.1 Hypo-osmolality and hyponatremia; I24.9 Acute ischemic heart disease, unspecified; N39.0 Urinary tract infection, site not specified; N17.9 Acute kidney failure, unspecified; I25.110 Atherosclerotic heart disease of native coronary artery with unstable angina pectoris; E87.5 Hyperkalemia; E87.6 Hypokalemia; D63.8 Anemia in other chronic diseases classified elsewhere; E83.42 Hypomagnesemia; R19.7 Diarrhea, unspecified; M06.9 Rheumatoid arthritis, unspecified; I10 Essential (primary) hypertension; E78.5 Hyperlipidemia, unspecified; E11.8 Type 2 diabetes mellitus with unspecified complications; E86.0 Dehydration; Z20.822 Contact with and (suspected) exposure to COVID-19; B96.20 Unspecified Escherichia coli [E. coli] as the cause of diseases classified elsewhere; Z82.3 Family history of stroke; Z82.49 Family history of ischemic heart disease and other diseases of the circulatory system; Z79.4 Long term (current) use of insulin; Z98.61 Coronary angioplasty status; Z95.1 Presence of aortocoronary bypass graft; Z90.710 Acquired absence of both cervix and uterus; Z72.0 Tobacco use; Z71.6 Tobacco abuse counseling
CPT/HCPCS: 36415; 36600; 71045; 76937; 78452; 80048; 80053; 80076; 80305; 81001; 82009; 82272; 82803; 82947; 82948; 83036; 83605; 83735; 83880; 84100; 84132; 84145; 84484; 85007; 85018; 85025; 85610; 85730; 87040; 87077; 87081; 87088; 87186; 87324; 87449; 87635; 93005; 93017; 93308; 94760; 96361; 96374; 96375; 97110; 97116; 97162; 97530; 99291; A4353; A4615; A6213; A6258; A6449; A9500; C1751; C1758; C9803; G0378; J0280; J0696; J1644; J1815; J1940; J2270; J2405; J2785; J3475; J3480; J3490; J7030; J7040; J7060

== ENCOUNTER 2022-01-21 16:44 | Emergency (ER) | payer MEDICARE, MEDICAID ==
[~2022-01-21] VITALS: Ht 167.6 cm; Wt 70.0 kg
[~2022-01-21 16:44] MED LIST changes: +AMLO5TAB16 PO; -ASPI-1071 PO; +ASPI-1397 PO; -ATOR-2 PO; +ATOR20TA66 PO; -CYCL5TAB PO; +ETAN50PE3 SQ; +LOSA25TA41 PO; -LOSA50TA64 PO; -METF-1203 PO; +METO-395 PO; -METO-539 PO; +SITA100T15 PO; -SPIR25TA PO; +SPIR25TA5 PO; -TICA90TA PO; +TICA90TA2 PO
[2022-01-21] MEDS ORDERED: ketorolac trometh inj. 60 MG/2 ML VIAL IM ONE (17:09)
[2022-01-21 17:40] VITALS: BP 144/128
[2022-01-21 18:04] LABS: ALANINE AMINOTRANSFERASE 23 U/L (12-78); ALBUMIN 3.2 G/DL (3.4-5.0); ALKALINE PHOSPHATASE 74 IU/L (46-116); ANION GAP 6 (8-16); ASPARTATE AMINO TRANSFERASE 20 U/L (10-37); BILIRUBIN,TOTAL 0.5 MG/DL (0.1-1.0); BLOOD UREA NITROGEN 13 MG/DL (7-18); BUN/CREATININE RATIO 17.1 (6.6-38.0); CHLORIDE 104 MMOL/L (99-107); CREATININE 0.76 MG/DL (0.40-0.90); GLUCOSE 121 MG/DL (70-104); POTASSIUM 3.6 MMOL/L (3.5-5.1); SODIUM 137 MMOL/L (135-145); TOTAL CARBON DIOXIDE 26.8 MMOL/L (24-32); TOTAL PROTEIN 6.5 G/DL (6.4-8.2); eGFR 75 ML/MIN
[2022-01-21 18:10] LABS: BASOPHILS % (AUTO) 0.5 % (0-1); EOSINOPHILS # (AUTO) 0.2 X10'3 (0-0.9); EOSINOPHILS % (AUTO) 2.8 % (0-6); HEMATOCRIT 36.5 % (35.0-45.0); HEMOGLOBIN 12.5 g/dl (12.0-16.0); LYMPHOCYTES # (AUTO) 1.8 X10'3 (1.1-4.8); LYMPHOCYTES % (AUTO) 23.9 % (21-51); MEAN CORPUSCULAR HEMOGLOBIN 30.8 PG (27.0-31.0); MEAN CORPUSCULAR HGB CONC 34.3 g/dL (33.0-36.5); MEAN CORPUSCULAR VOLUME 89.8 FL (78-98); MEAN PLATELET VOLUME 10.2 FL (7.4-10.4); MONOCYTES # (AUTO) 0.7 X10'3 (0-0.9); MONOCYTES % (AUTO) 9.6 % (2-12); NEUTROPHILS # (AUTO) 4.9 X10'3 (1.8-7.7); NEUTROPHILS % (AUTO) 63.2 % (42-75); PLATELET COUNT 224 X10'3 (140-440); RED BLOOD COUNT 4.07 X10'6 (4.20-5.60); RED CELL DISTRIBUTION WIDTH 15.4 % (11.5-14.5); WHITE BLOOD COUNT 7.7 X10'3 (4.5-11.0)
[2022-01-21 18:39] LABS: CLARITY,URINE SLIGHTLY CLOUDY (Clear); COLOR,URINE YELLOW (Yellow); GLUCOSE, URINE 250 mg/dl (Neg); KETONES,URINE NEGATIVE (Neg); LEUKOCYTE ESTERASE ,URINE NEGATIVE (Neg); NITRITES, URINE POSITIVE (Neg); OCCULT BLOOD,URINE NEGATIVE (Neg); PROTEIN,URINE NEGATIVE (Neg); UROBILINOGEN,URINE 0.2 E.U/dL (0.2-1.0)
[2022-01-21] MEDS ORDERED: HYDR-3965 PO (18:42)
[2022-01-21] MEDS ORDERED: HYDROcodone/acetaminophen 5mg/325mg tablet PO ONE ×2 (18:45)
[2022-01-21 18:46] LABS: UA COLLECTION TYPE CLN CATCH MIDSTREAM
[2022-01-21 18:51] LABS: BACTERIA,URINE 4+ /HPF (Neg); MUCUS STRANDS NONE SEEN /LPF (Neg); RBC,URINE 0-2 /HPF (0-2); SQUAMOUS EPITHELIAL CELL,UR FEW /LPF (FEW)
[2022-01-21] MEDS ORDERED: CEPH-585 PO (18:53)
[2022-01-21] MEDS ORDERED: cephalexin 250mg capsule PO ONE (18:55)
== END 2022-01-21 21:13 | disposition home or self-care (01) ==
LOC: ER 16:45
DX: N39.0 Urinary tract infection, site not specified (principal); R11.2 Nausea with vomiting, unspecified; F17.210 Nicotine dependence, cigarettes, uncomplicated; Z79.899 Other long term (current) drug therapy; Z79.84 Long term (current) use of oral hypoglycemic drugs; Z79.2 Long term (current) use of antibiotics
CPT/HCPCS: 36415; 74176; 80053; 81001; 85025; 87088; 87186; 96372; 99284; J1885; 87077

== ENCOUNTER 2022-03-11 14:06 | Emergency (ER) | payer MEDICARE, MEDICAID ==
[~2022-03-11] VITALS: Ht 154.9 cm; Wt 55.0 kg
[~2022-03-11 14:06] MED LIST changes: +COR3.125T PO; -CYAN-51 PO; +EMPA10TA PO; +FAMO20TA8 PO; +LACT1CAP26 PO; -METO-395 PO; -SPIR25TA5 PO
[2022-03-11 14:35] LABS: BASOPHILS % (AUTO) 0.3 % (0-1); EOSINOPHILS # (AUTO) 0.1 X10'3 (0-0.9); EOSINOPHILS % (AUTO) 0.8 % (0-6); HEMATOCRIT 38.9 % (35.0-45.0); HEMOGLOBIN 12.5 g/dl (12.0-16.0); LYMPHOCYTES # (AUTO) 1.7 X10'3 (1.1-4.8); LYMPHOCYTES % (AUTO) 20.3 % (21-51); MEAN CORPUSCULAR HEMOGLOBIN 30.2 PG (27.0-31.0); MEAN CORPUSCULAR HGB CONC 32.2 g/dL (33.0-36.5); MEAN CORPUSCULAR VOLUME 93.9 FL (78-98); MEAN PLATELET VOLUME 9.4 FL (7.4-10.4); MONOCYTES # (AUTO) 0.6 X10'3 (0-0.9); MONOCYTES % (AUTO) 7.5 % (2-12); NEUTROPHILS # (AUTO) 6.1 X10'3 (1.8-7.7); NEUTROPHILS % (AUTO) 71.1 % (42-75); PLATELET COUNT 323 X10'3 (140-440); RED BLOOD COUNT 4.14 X10'6 (4.20-5.60); RED CELL DISTRIBUTION WIDTH 15.8 % (11.5-14.5); WHITE BLOOD COUNT 8.6 X10'3 (4.5-11.0)
[2022-03-11 15:08] LABS: ALANINE AMINOTRANSFERASE 11 U/L (12-78); ALBUMIN 3.3 G/DL (3.4-5.0); ALBUMIN/GLOBULIN RATIO 0.8 (1.1-1.5); ALKALINE PHOSPHATASE 96 IU/L (46-116); ANION GAP 20 (8-16); ASPARTATE AMINO TRANSFERASE 14 U/L (10-37); BILIRUBIN,TOTAL 0.5 MG/DL (0.1-1.0); BLOOD UREA NITROGEN 21 MG/DL (7-18); BUN/CREATININE RATIO 18.4 (6.6-38.0); CALCIUM 8.7 MG/DL (8.5-10.1); CHLORIDE 97 MMOL/L (99-107); CREATININE 1.14 MG/DL (0.40-0.90); GLUCOSE 391 MG/DL (70-104); MAGNESIUM 1.9 MG/DL (1.5-2.4); POTASSIUM 4.5 MMOL/L (3.5-5.1); SODIUM 132 MMOL/L (135-145); TOTAL CARBON DIOXIDE 15.5 MMOL/L (24-32); TOTAL PROTEIN 7.2 G/DL (6.4-8.2); eGFR 47 ML/MIN
[2022-03-11] MEDS ORDERED: pantoprazole 40MG/NS 100ML BAG 100 ML IV ONE (15:30)
[2022-03-11 18:27] VITALS: BP 143/64
[2022-03-11] MEDS ORDERED: NITR0.4T51 SL (18:45)
== END 2022-03-11 19:28 | disposition home or self-care (01) ==
LOC: ER 14:07
DX: K21.9 Gastro-esophageal reflux disease without esophagitis (principal); R07.9 Chest pain, unspecified; I11.9 Hypertensive heart disease without heart failure; Z88.6 Allergy status to analgesic agent; Z88.8 Allergy status to other drugs, medicaments and biological substances; Z79.1 Long term (current) use of non-steroidal anti-inflammatories (NSAID); Z79.2 Long term (current) use of antibiotics
CPT/HCPCS: 36415; 71045; 80053; 83735; 83880; 84484; 85025; 93005; 96365; 99285; C9113

== ENCOUNTER 2022-03-27 22:28 | Emergency (ER) | payer MEDICARE, MEDICAID ==
[~2022-03-27] VITALS: Ht 154.9 cm; Wt 55.5 kg
[~2022-03-27 22:28] MED LIST changes: +CARV3.122 PO; +CEFD300C3 PO; -COR3.125T PO; -FAMO20TA8 PO; +NITR0.4T48 SL; +PANT40TA54 PO; +POTA-206 PO; +SODI650T29 PO
[2022-03-27 22:36] VITALS: BP 125/56
== END 2022-03-28 01:15 | disposition left against medical advice (07) ==
LOC: ER 22:28
DX: M54.59 Other low back pain (principal); Z53.21 Procedure and treatment not carried out due to patient leaving prior to being seen by health care provider

== ENCOUNTER 2022-04-23 16:15 | Emergency (ER) | payer MEDICARE, MEDICAID ==
[~2022-04-23] VITALS: Ht 154.9 cm; Wt 55.5 kg
[~2022-04-23 16:15] MED LIST changes: +ALEN70TA37 PO; -AMLO5TAB16 PO; -ATOR20TA66 PO; -CEFD300C3 PO; -EMPA10TA PO; -LACT1CAP26 PO; -LEFL10TA20 PO; -LOSA25TA41 PO; -PANT40TA54 PO; -SITA100T15 PO; -SODI650T29 PO
[2022-04-23 16:44] LABS: BASOPHILS # (AUTO) 0.1 X10'3 (0-0.2); BASOPHILS % (AUTO) 0.5 % (0-1); EOSINOPHILS % (AUTO) 0.3 % (0-6); HEMOGLOBIN 11.2 g/dl (12.0-16.0); LYMPHOCYTES # (AUTO) 2.3 X10'3 (1.1-4.8); LYMPHOCYTES % (AUTO) 23.9 % (21-51); MEAN CORPUSCULAR HEMOGLOBIN 30.4 PG (27.0-31.0); MEAN CORPUSCULAR HGB CONC 33.1 g/dL (33.0-36.5); MEAN CORPUSCULAR VOLUME 92.1 FL (78-98); MEAN PLATELET VOLUME 8.6 FL (7.4-10.4); MONOCYTES # (AUTO) 0.6 X10'3 (0-0.9); MONOCYTES % (AUTO) 5.8 % (2-12); NEUTROPHILS # (AUTO) 6.8 X10'3 (1.8-7.7); NEUTROPHILS % (AUTO) 69.5 % (42-75); PLATELET COUNT 345 X10'3 (140-440); RED BLOOD COUNT 3.69 X10'6 (4.20-5.60); RED CELL DISTRIBUTION WIDTH 18.1 % (11.5-14.5); WHITE BLOOD COUNT 9.8 X10'3 (4.5-11.0)
[2022-04-23] MEDS ORDERED: insulin regular, human 10 units/0.1 ml syringe SQ ONE (16:45)
[2022-04-23 17:05] LABS: ALANINE AMINOTRANSFERASE 50 U/L (12-78); ALBUMIN 3.1 G/DL (3.4-5.0); ALBUMIN/GLOBULIN RATIO 0.9 (1.1-1.5); ALKALINE PHOSPHATASE 115 IU/L (46-116); ANION GAP 13 (8-16); ASPARTATE AMINO TRANSFERASE 26 U/L (10-37); BILIRUBIN,TOTAL 0.4 MG/DL (0.1-1.0); BLOOD UREA NITROGEN 13 MG/DL (7-18); CALCIUM 9.6 MG/DL (8.5-10.1); CHLORIDE 96 MMOL/L (99-107); CREATININE 1.18 MG/DL (0.40-0.90); GLUCOSE 420 MG/DL (70-104); MAGNESIUM 1.9 MG/DL (1.5-2.4); POTASSIUM 3.3 MMOL/L (3.5-5.1); SODIUM 129 MMOL/L (135-145); TOTAL PROTEIN 6.7 G/DL (6.4-8.2); eGFR 45 ML/MIN
[2022-04-23 17:37] LABS: CLARITY,URINE CLEAR (Clear); COLOR,URINE STRAW (Yellow); GLUCOSE, URINE >=1000 mg/dl (Neg); KETONES,URINE TRACE mg/dl (Neg); LEUKOCYTE ESTERASE ,URINE NEGATIVE (Neg); NITRITES, URINE NEGATIVE (Neg); OCCULT BLOOD,URINE NEGATIVE (Neg); PROTEIN,URINE NEGATIVE (Neg); UROBILINOGEN,URINE 0.2 E.U/dL (0.2-1.0)
[2022-04-23 17:41] LABS: UA COLLECTION TYPE OTHER
[2022-04-23 17:51] LABS: BACTERIA,URINE NONE SEEN /HPF (Neg); MUCUS STRANDS NONE SEEN /LPF (Neg); RBC,URINE 0-2 /HPF (0-2); SQUAMOUS EPITHELIAL CELL,UR FEW /LPF (FEW); WBC,URINE 0-4 /HPF (0-4); YEAST FEW /HPF (NEGATIVE)
[2022-04-23 18:14] VITALS: BP 137/61
== END 2022-04-23 18:32 | disposition home or self-care (01) ==
LOC: ER 16:15
DX: E11.65 Type 2 diabetes mellitus with hyperglycemia (principal); R07.89 Other chest pain; I10 Essential (primary) hypertension; M19.90 Unspecified osteoarthritis, unspecified site
CPT/HCPCS: 36415; 71045; 80053; 81001; 82948; 83735; 83880; 84484; 85025; 93005; 99285; J1815

== ENCOUNTER 2022-05-11 12:10 | Emergency (ER) | payer MEDICARE, MEDICAID ==
[~2022-05-11] VITALS: Ht 154.9 cm; Wt 55.5 kg
[~2022-05-11 12:10] MED LIST changes: +ATOR-2 PO; -CARV3.122 PO; -ETAN50PE3 SQ; +HUM7525 SQ; +INSU100V9 SQ; -LANTUS SQ; -NOVLG SQ; -POTA-206 PO
[2022-05-11 13:14] LABS: BASOPHILS % (AUTO) 0.3 % (0-1); EOSINOPHILS % (AUTO) 0.5 % (0-6); HEMATOCRIT 33.5 % (35.0-45.0); HEMOGLOBIN 11.1 g/dl (12.0-16.0); LYMPHOCYTES # (AUTO) 2.2 X10'3 (1.1-4.8); LYMPHOCYTES % (AUTO) 22.6 % (21-51); MEAN CORPUSCULAR VOLUME 90.8 FL (78-98); MEAN PLATELET VOLUME 8.3 FL (7.4-10.4); MONOCYTES # (AUTO) 0.7 X10'3 (0-0.9); MONOCYTES % (AUTO) 7.8 % (2-12); NEUTROPHILS # (AUTO) 6.6 X10'3 (1.8-7.7); NEUTROPHILS % (AUTO) 68.8 % (42-75); PLATELET COUNT 383 X10'3 (140-440); RED BLOOD COUNT 3.69 X10'6 (4.20-5.60); RED CELL DISTRIBUTION WIDTH 18.4 % (11.5-14.5); WHITE BLOOD COUNT 9.6 X10'3 (4.5-11.0)
[2022-05-11 13:30] LABS: ALBUMIN 2.5 G/DL (3.4-5.0); ALBUMIN/GLOBULIN RATIO 0.6 (1.1-1.5); ALKALINE PHOSPHATASE 156 IU/L (46-116); ANION GAP 17 (8-16); ASPARTATE AMINO TRANSFERASE 20 U/L (10-37); BILIRUBIN,TOTAL 0.4 MG/DL (0.1-1.0); BLOOD UREA NITROGEN 8 MG/DL (7-18); BUN/CREATININE RATIO 8.3 (6.6-38.0); CALCIUM 8.7 MG/DL (8.5-10.1); CHLORIDE 96 MMOL/L (99-107); CREATININE 0.96 MG/DL (0.40-0.90); GLUCOSE 278 MG/DL (70-104); SODIUM 134 MMOL/L (135-145); TOTAL CARBON DIOXIDE 21.4 MMOL/L (24-32); TOTAL PROTEIN 6.5 G/DL (6.4-8.2); eGFR 57 ML/MIN
[2022-05-11 13:33] LABS: POTASSIUM 2.4 MMOL/L (3.5-5.1)
[2022-05-11 13:41] LABS: ALANINE AMINOTRANSFERASE 25 U/L (12-78)
[2022-05-11] MEDS ORDERED: ringers solution, lactated 500ml IV solution IV ONE (13:45)
[2022-05-11] MEDS ORDERED: POTASSIUM BICARB 20meq eff tab 20 MEQ TABLET.EFF PO ONE (13:45)
[2022-05-11 14:01] VITALS: BP 112/78
== END 2022-05-11 15:19 | disposition home or self-care (01) ==
LOC: ER 12:11
DX: E11.65 Type 2 diabetes mellitus with hyperglycemia (principal); E87.6 Hypokalemia; I10 Essential (primary) hypertension; I25.10 Atherosclerotic heart disease of native coronary artery without angina pectoris; M19.90 Unspecified osteoarthritis, unspecified site; Z95.1 Presence of aortocoronary bypass graft; Z79.82 Long term (current) use of aspirin; Z79.4 Long term (current) use of insulin; Z79.899 Other long term (current) drug therapy
CPT/HCPCS: 36415; 80053; 82800; 82948; 85025; 99283; J7120

== ENCOUNTER 2022-05-15 14:32 | Inpatient (IN) | payer MEDICARE, MEDICAID ==
[~2022-05-15] VITALS: Ht 154.9 cm; Wt 55.5 kg
[2022-05-15] MEDS ORDERED: ringers solution, lacted 1,000 ML IV ONE (14:50)
[2022-05-15 15:18] LABS: BASOPHILS % (AUTO) 0.2 % (0-1); EOSINOPHILS % (AUTO) 0 % (0-6); LYMPHOCYTES # (AUTO) 0.9 X10'3 (1.1-4.8); LYMPHOCYTES % (AUTO) 4.6 % (21-51); MEAN PLATELET VOLUME 9.4 FL (7.4-10.4); MONOCYTES # (AUTO) 0.5 X10'3 (0-0.9); MONOCYTES % (AUTO) 2.9 % (2-12); NEUTROPHILS # (AUTO) 17.2 X10'3 (1.8-7.7); NEUTROPHILS % (AUTO) 92.3 % (42-75); PLATELET COUNT 476 X10'3 (140-440); WHITE BLOOD COUNT 18.7 X10'3 (4.5-11.0)
[2022-05-15 15:38] LABS: HEMATOCRIT 36.3 % (35.0-45.0); HEMOGLOBIN 11.7 g/dl (12.0-16.0); RED BLOOD COUNT 3.77 X10'6 (4.20-5.60)
[2022-05-15 15:39] LABS: MEAN CORPUSCULAR HEMOGLOBIN 30.9 PG (27.0-31.0); MEAN CORPUSCULAR HGB CONC 32.1 g/dL (33.0-36.5); MEAN CORPUSCULAR VOLUME 96.3 FL (78-98); RED CELL DISTRIBUTION WIDTH 18.8 % (11.5-14.5)
[2022-05-15 15:41] LABS: ALANINE AMINOTRANSFERASE 17 U/L (12-78); ALBUMIN 2.8 G/DL (3.4-5.0); ALBUMIN/GLOBULIN RATIO 0.6 (1.1-1.5); ALKALINE PHOSPHATASE 186 IU/L (46-116); ANION GAP 38 (8-16); ASPARTATE AMINO TRANSFERASE 16 U/L (10-37); BILIRUBIN,TOTAL 0.9 MG/DL (0.1-1.0); BLOOD UREA NITROGEN 18 MG/DL (7-18); BUN/CREATININE RATIO 14.5 (6.6-38.0); CALCIUM 9.5 MG/DL (8.5-10.1); CHLORIDE 87 MMOL/L (99-107); CREATININE 1.24 MG/DL (0.40-0.90); LIPASE 70 U/L (73-393); POTASSIUM 4.4 MMOL/L (3.5-5.1); SODIUM 132 MMOL/L (135-145); TOTAL PROTEIN 7.4 G/DL (6.4-8.2); eGFR 43 ML/MIN
[2022-05-15 15:44] LABS: ANISOCYTOSIS 3+; PLATELET ESTIMATE INCREASED; POIKILOCYTOSIS FEW
[2022-05-15 15:53] LABS: GLUCOSE 868 MG/DL (70-104)
[2022-05-15 15:54] LABS: TOTAL CARBON DIOXIDE 7.3 MMOL/L (24-32)
--- NOTE | 2022-05-15 15:59 | NUR ---
PATIENT'S FAMILY ASKING FOR ICE CHIPS, PER RN & MD PATIENT IS NPO AT THIS TIME. PATIENT AND FAMILY MADE AWARE.
[2022-05-15] MEDS ORDERED: sodium bicarbonate (8.4%) inj. 100 MEQ in dextrose 5% water 500ml 500 ML IV PRN ×2 (16:00→20:30)
[2022-05-15] MEDS ORDERED: sodium bicarbonate (8.4%) inj. 50 MEQ in dextrose 5% water 500ml 250 ML IV PRN ×2 (16:00→20:30)
[2022-05-15] MEDS ORDERED: sodium phosphate inj. 15 MMOL in dextrose 5%-water 250 ML IV PRN ×2 (16:00→20:30)
[2022-05-15] MEDS ORDERED: potassium Cl 20 mEq SR tablet PO PRN ×5 (16:00→20:30)
[2022-05-15] MEDS ORDERED: sodium phosphate inj. 30 MMOL in dextrose 5%-water 250 ML IV PRN ×2 (16:00→20:30)
[2022-05-15] MEDS ORDERED: potassium CL 20mEq in D5-1/2NS 1,000 ML IV PRN ×2 (16:00→20:30)
[2022-05-15] MEDS ORDERED: potassium Cl 40MEQ/1/2NS 520ml 520 ML IV PRN ×5 (16:00→20:30)
[2022-05-15] MEDS ORDERED: Neutra Phos packet PO PRN (16:00)
[2022-05-15] MEDS ORDERED: ringers solution, lactated 1000ml IV soln IV ONE (16:25)
[2022-05-15] MEDS: normal saline 1000ml 1,000 ML IV SCH ×6 (17:22→21:54)
[2022-05-15] MEDS: Insulin Reg/NS 100units/100mL 100 ML IV SCH ×2 (17:25→23:13)
[2022-05-15 17:35] LABS: ALBUMIN 2.8 G/DL (3.4-5.0); BLOOD UREA NITROGEN 21 MG/DL (7-18); BUN/CREATININE RATIO 17.4 (6.6-38.0); CALCIUM 9.2 MG/DL (8.5-10.1); CHLORIDE 90 MMOL/L (99-107); CREATININE 1.21 MG/DL (0.40-0.90); PHOSPHORUS 7.1 MG/DL (2.3-4.5); SODIUM 128 MMOL/L (135-145); eGFR 44 ML/MIN
[2022-05-15 17:48] LABS: ANION GAP 33 (8-16)
[2022-05-15 17:51] LABS: GLUCOSE 964 MG/DL (70-104); TOTAL CARBON DIOXIDE < 5 MMOL/L (24-32)
--- NOTE | 2022-05-15 17:53 | NUR ---
Received critical lab of BG 964, w/ CO2 <5 at 1751, notified provider, Alejandro at 1752.
[2022-05-15 18:31] LABS: ABG BASE EXCESS -26.3 mmol/L (-2.0-2.0); ABG HCO3 2.9 mmol/L (22.0-26.0); ABG OXYGEN SATURATION 99.2 % (94-97); ABG PCO2 (T) 11.3 mmHg (32.0-45.0); ABG PO2 (T) 259.2 mmHg (75.0-100.0); FCOHb 0.3 % (0.0-3.9); FMetHb 0.5 % (0.0-1.5); FO2Hb 98.4 % (94-97); PATIENT TEMPERATURE 36.5
--- NOTE | 2022-05-15 18:57 | NUR ---
Per MD order, ER MD want insulin drip doubled per hour until, blood sugar drops 50 to 70. MD does not want humalog bolus given.
[2022-05-15 19:22] LABS: CLARITY,URINE CLEAR (Clear); COLOR,URINE YELLOW (Yellow); GLUCOSE, URINE >=1000 mg/dl (Neg); KETONES,URINE >=80 mg/dl (Neg); LEUKOCYTE ESTERASE ,URINE NEGATIVE (Neg); NITRITES, URINE NEGATIVE (Neg); OCCULT BLOOD,URINE TRACE-LYSED (Neg); PROTEIN,URINE NEGATIVE (Neg); UROBILINOGEN,URINE 0.2 E.U/dL (0.2-1.0)
[2022-05-15 19:27] LABS: UA COLLECTION TYPE FOLEY CATH
[2022-05-15 19:31] LABS: BACTERIA,URINE NONE SEEN /HPF (Neg); HYALINE CASTS 0-3 /LPF (NEGATIVE); MUCUS STRANDS FEW /LPF (Neg); RBC,URINE 0-2 /HPF (0-2); SQUAMOUS EPITHELIAL CELL,UR FEW /LPF (FEW); WBC,URINE 0-4 /HPF (0-4)
[2022-05-15] MEDS ORDERED: normal saline 1000ML IV soln IVB ONE (19:43)
[2022-05-15] MEDS ORDERED: K and/or MAG REPLACEMENT MC SCH (20:00)
[2022-05-15] MEDS ORDERED: magnesium Cl slow-release 64mg tablet PO PRN (20:25)
[2022-05-15] MEDS ORDERED: ondansetron/PF 4mg/2ml inj IV PRN (20:25)
[2022-05-15] MEDS ORDERED: magnesium 4gm in 100ml NS 100 ML IV PRN (20:25)
[2022-05-15] MEDS ORDERED: acetaminophen 325mg tablet PO PRN (20:25)
[2022-05-15] MEDS ORDERED: insulin regular, human U-100 3ml vial - multi-dose IV PRN (20:30)
[2022-05-15 20:51] LABS: ALBUMIN 2.6 G/DL (3.4-5.0); ANION GAP 36 (8-16); BLOOD UREA NITROGEN 20 MG/DL (7-18); BUN/CREATININE RATIO 15.3 (6.6-38.0); CALCIUM 8.8 MG/DL (8.5-10.1); CHLORIDE 96 MMOL/L (99-107); CREATININE 1.31 MG/DL (0.40-0.90); PHOSPHORUS 4.7 MG/DL (2.3-4.5); POTASSIUM 3.7 MMOL/L (3.5-5.1); SODIUM 137 MMOL/L (135-145); eGFR 40 ML/MIN
[2022-05-15 20:58] LABS: ABG BASE EXCESS -22.6 mmol/L (-2.0-2.0); ABG HCO3 4.7 mmol/L (22.0-26.0); ABG OXYGEN SATURATION 97.7 % (94-97); ABG PCO2 (T) 14.5 mmHg (32.0-45.0); ABG PO2 (T) 124.8 mmHg (75.0-100.0); ALLEN'S TEST POSITIVE; FCOHb 0.3 % (0.0-3.9); FLOW 2 L/min; FMetHb 0.4 % (0.0-1.5); PATIENT TEMPERATURE 36.4; TOTAL HEMOGLOBIN 11.9 G/dl (12.0-16.0)
[2022-05-15 21:18] LABS: TOTAL CARBON DIOXIDE 5.2 MMOL/L (24-32)
[2022-05-15 21:25] LABS: GLUCOSE 766 MG/DL (70-104)
[2022-05-15] MEDS ORDERED: morphine 2 MG/ML inj. syringe IV ONE (22:00)
[2022-05-15 23:50] LABS: ALBUMIN 2.3 G/DL (3.4-5.0); ANION GAP 25 (8-16); BLOOD UREA NITROGEN 16 MG/DL (7-18); BUN/CREATININE RATIO 13.3 (6.6-38.0); CALCIUM 8.7 MG/DL (8.5-10.1); CHLORIDE 107 MMOL/L (99-107); GLUCOSE 405 MG/DL (70-104); PHOSPHORUS 1.6 MG/DL (2.3-4.5); SODIUM 144 MMOL/L (135-145); eGFR 44 ML/MIN
[2022-05-16 00:13] LABS: POTASSIUM 2.9 MMOL/L (3.5-5.1)
[2022-05-16 00:14] LABS: TOTAL CARBON DIOXIDE 11.8 MMOL/L (24-32)
[2022-05-16] MEDS: normal saline 1000ml 1,000 ML IV SCH ×12 (00:30→21:40)
[2022-05-16] MEDS: dextrose 5%-1/2 normal saline 1,000 ML IV SCH ×4 (02:54→23:14)
[2022-05-16 02:58] LABS: BASOPHILS % (AUTO) 0.1 % (0-1); EOSINOPHILS % (AUTO) 0 % (0-6); HEMATOCRIT 30.1 % (35.0-45.0); LYMPHOCYTES % (AUTO) 8.8 % (21-51); MEAN CORPUSCULAR HEMOGLOBIN 30.5 PG (27.0-31.0); MEAN CORPUSCULAR HGB CONC 33.2 g/dL (33.0-36.5); MEAN PLATELET VOLUME 8.2 FL (7.4-10.4); MONOCYTES # (AUTO) 1.1 X10'3 (0-0.9); MONOCYTES % (AUTO) 4.6 % (2-12); NEUTROPHILS # (AUTO) 19.7 X10'3 (1.8-7.7); NEUTROPHILS % (AUTO) 86.5 % (42-75); PLATELET COUNT 390 X10'3 (140-440); RED BLOOD COUNT 3.27 X10'6 (4.20-5.60); RED CELL DISTRIBUTION WIDTH 18.4 % (11.5-14.5); WHITE BLOOD COUNT 22.8 X10'3 (4.5-11.0)
[2022-05-16 03:21] LABS: ALBUMIN 2.2 G/DL (3.4-5.0); ANION GAP 12 (8-16); BLOOD UREA NITROGEN 14 MG/DL (7-18); BUN/CREATININE RATIO 14.1 (6.6-38.0); CALCIUM 8.8 MG/DL (8.5-10.1); CHLORIDE 112 MMOL/L (99-107); CREATININE 0.99 MG/DL (0.40-0.90); GLUCOSE 198 MG/DL (70-104); MAGNESIUM 1.5 MG/DL (1.5-2.4); SODIUM 146 MMOL/L (135-145); TOTAL CARBON DIOXIDE 21.8 MMOL/L (24-32); eGFR 55 ML/MIN
[2022-05-16 03:40] LABS: POTASSIUM 2.8 MMOL/L (3.5-5.1)
[2022-05-16] MEDS: potassium Cl 40MEQ/1/2NS 520ml 520 ML IV SCH ×3 (04:00→07:03)
[2022-05-16] MEDS ORDERED: Insulin Reg/NS 100units/100mL 100 ML IV SCH (06:00)
--- NOTE | 2022-05-16 06:40 | NUR ---
Pt blood sugar 77. MD notified. D5 1/2 NS titrated to 250 mls/hr. New orders from MD to stop insulin for 1 hr, then restart at 4 units/hr.
[2022-05-16] MEDS ORDERED: glucagon, human recombinant 1mg kit SUBCUT PRN (07:55)
[2022-05-16] MEDS ORDERED: MESSAGE TO PHARMACY PO ONE (07:55)
[2022-05-16] MEDS ORDERED: DEXTROSE 15 GM of carb/4 tabs (each vial/BOTTLE has 4 tablets) PO PRN ×2 (07:55)
[2022-05-16] MEDS ORDERED: dextrose 50%-water 50ml dispensing syringe IV PRN ×2 (07:55)
[2022-05-16] MEDS ORDERED: K and/or MAG REPLACEMENT MC SCH (08:00)
[2022-05-16] MEDS: K and/or MAG REPLACEMENT MC SCH ×2 (08:00→20:00)
[2022-05-16] MEDS: heparin, porcine 5000 units/ml vial SQ SCH ×2 (08:14→19:56)
[2022-05-16] MEDS: CefTRIAXone/D5W-Rocephin 1gm 50 ML IV SCH (10:21)
[2022-05-16] MEDS ORDERED: nitroGLYCERIN 0.4mg SUBLingual tab SL PRN (12:00)
[2022-05-16] MEDS: aspirin 81mg, enteric-coated 1 TAB TABLET.DR PO SCH (12:59)
[2022-05-16] MEDS: insulin Lispro (HumaLOG) vial - multi-dose SQ SCH ×2 (13:51→19:52)
--- NOTE | 2022-05-16 13:59 | NUR ---
300cc drained from foster. 3u lispro insulin given 1355 per current nutritional protocol. Pt had 2-3 gm carb and is on level 2, for 206 BG.
--- NOTE | 2022-05-16 14:16 | NUR ---
Attempted to call CLAY MAKERJAIR Ballesteros 3x and was told she would call back but have been unable to reach her. Pt has had Lispro insulin 3u per insulin adjustment tool for level 2, Type 2 diabetes, w/ BS of 206. Pt still lethargic. Blood cultures and labs drawn by Tax Credit Leasing Consultant student and new IV site place in R
[2022-05-16 14:42] LABS: PHOSPHORUS 2.5 MG/DL (2.3-4.5); POTASSIUM 3.8 MMOL/L (3.5-5.1)
--- NOTE | 2022-05-16 15:05 | NUR ---
I had Bernie take report for me while I was dealing with a situation with another patient. Primary nurse unable to answer all of Bernie's questions and was told to call back when she had answers. Labs had not been drawn since 231 and at that time k and phos were critical . Patient being brought up to floor .
[2022-05-16 15:36] VITALS: BP 143/61
[2022-05-16 15:40] LABS: ALBUMIN 2.1 G/DL (3.4-5.0); ANION GAP 16 (8-16); BLOOD UREA NITROGEN 13 MG/DL (7-18); BUN/CREATININE RATIO 16.9 (6.6-38.0); CALCIUM 8.1 MG/DL (8.5-10.1); CHLORIDE 109 MMOL/L (99-107); CREATININE 0.77 MG/DL (0.40-0.90); GLUCOSE 278 MG/DL (70-104); POTASSIUM 3.6 MMOL/L (3.5-5.1); SODIUM 140 MMOL/L (135-145); TOTAL CARBON DIOXIDE 15.4 MMOL/L (24-32); eGFR 74 ML/MIN
--- NOTE | 2022-05-16 17:34 | NUR ---
Page Sent promotional table spacer PAGER ID: [phone] MESSAGE: [phone] Eunice. Patient had not had labs since 222 last night. I ordered stat BMP Co2 has gone down to 15.4. I am concerned patient is going back into DKA and I would like clarification on fluid orders . Please call Lucila @[phone] (228 character message out of a maximum of 240) CLOSE [X] SEND ANOTHER PAGE
[2022-05-16 18:00] VITALS: BP 107/53
--- NOTE | 2022-05-16 18:29 | NUR ---
Problems reprioritized. Patient report given, questions answered & plan of care reviewed with Black ADAM.
[2022-05-16] MEDS: ticagrelor 90mg tablet PO SCH (19:55)
[2022-05-16] MEDS: insulin glargine (Lantus) pen - multi-dose SQ SCH (21:00)
[2022-05-16 21:03] LABS: ALBUMIN 2.1 G/DL (3.4-5.0); ANION GAP 22 (8-16); BLOOD UREA NITROGEN 13 MG/DL (7-18); BUN/CREATININE RATIO 17.6 (6.6-38.0); CALCIUM 8.6 MG/DL (8.5-10.1); CHLORIDE 105 MMOL/L (99-107); CREATININE 0.74 MG/DL (0.40-0.90); GLUCOSE 414 MG/DL (70-104); POTASSIUM 3.8 MMOL/L (3.5-5.1); SODIUM 139 MMOL/L (135-145); eGFR 78 ML/MIN
[2022-05-16 21:05] LABS: TOTAL CARBON DIOXIDE 11.7 MMOL/L (24-32)
[2022-05-16] MEDS: Insulin Reg/NS 100units/100mL 100 ML IV SCH (21:53)
[2022-05-16 22:00] VITALS: BP 164/78
[2022-05-16] MEDS: potassium Cl 20mEq in NS 1,000 ML IV SCH (22:21)
[2022-05-17] VITALS (7 sets, daily range): BP systolic 132–158; BP diastolic 62–75
[2022-05-17] MEDS: normal saline 1000ml 1,000 ML IV SCH ×8 (00:30→20:30)
[2022-05-17 01:06] LABS: ANION GAP 17 (8-16); BLOOD UREA NITROGEN 10 MG/DL (7-18); BUN/CREATININE RATIO 12.5 (6.6-38.0); CALCIUM 8.2 MG/DL (8.5-10.1); CHLORIDE 109 MMOL/L (99-107); GLUCOSE 202 MG/DL (70-104); MAGNESIUM 1.3 MG/DL (1.5-2.4); SODIUM 142 MMOL/L (135-145); TOTAL CARBON DIOXIDE 15.6 MMOL/L (24-32); eGFR 71 ML/MIN
[2022-05-17 01:14] LABS: POTASSIUM 2.9 MMOL/L (3.5-5.1)
[2022-05-17] MEDS ORDERED: potassium Cl 40MEQ/1/2NS 520ml 520 ML IV PRN (01:20)
[2022-05-17] MEDS: potassium Cl 20mEq in NS 1,000 ML IV SCH ×5 (01:40→17:40)
[2022-05-17] MEDS: potassium CL 20mEq in D5-1/2NS 1,000 ML IV PRN ×2 (03:53→08:09)
[2022-05-17 04:27] LABS: ANION GAP 11 (8-16); BLOOD UREA NITROGEN 7 MG/DL (7-18); BUN/CREATININE RATIO 11.1 (6.6-38.0); CALCIUM 7.8 MG/DL (8.5-10.1); CHLORIDE 108 MMOL/L (99-107); CREATININE 0.63 MG/DL (0.40-0.90); GLUCOSE 140 MG/DL (70-104); SODIUM 139 MMOL/L (135-145); TOTAL CARBON DIOXIDE 19.8 MMOL/L (24-32); eGFR > 90 ML/MIN
[2022-05-17] MEDS: dextrose 5%-1/2 normal saline 1,000 ML IV SCH ×3 (05:30→22:00)
--- NOTE | 2022-05-17 06:12 | NUR ---
Problems reprioritized. Patient report given, questions answered & plan of care reviewed with Lesli ADAM.
[2022-05-17 06:16] LABS: BASOPHILS % (AUTO) 0.2 % (0-1); EOSINOPHILS # (AUTO) 0.1 X10'3 (0-0.9); EOSINOPHILS % (AUTO) 0.4 % (0-6); HEMATOCRIT 30.5 % (35.0-45.0); HEMOGLOBIN 9.9 g/dl (12.0-16.0); LYMPHOCYTES # (AUTO) 1.9 X10'3 (1.1-4.8); LYMPHOCYTES % (AUTO) 12.4 % (21-51); MEAN CORPUSCULAR HEMOGLOBIN 29.9 PG (27.0-31.0); MEAN CORPUSCULAR HGB CONC 32.3 g/dL (33.0-36.5); MEAN CORPUSCULAR VOLUME 92.6 FL (78-98); MEAN PLATELET VOLUME 8.7 FL (7.4-10.4); MONOCYTES # (AUTO) 0.9 X10'3 (0-0.9); MONOCYTES % (AUTO) 5.5 % (2-12); NEUTROPHILS # (AUTO) 12.8 X10'3 (1.8-7.7); NEUTROPHILS % (AUTO) 81.5 % (42-75); PLATELET COUNT 321 X10'3 (140-440); RED CELL DISTRIBUTION WIDTH 19.3 % (11.5-14.5); WHITE BLOOD COUNT 15.7 X10'3 (4.5-11.0)
--- NOTE | 2022-05-17 06:41 | NUR ---
Patient in room U 3023. I have received report from Black ADAM and had the opportunity to ask questions and assume patient care. Patient resting in bed in no acute distress.
[2022-05-17 07:08] LABS: ALBUMIN 1.9 G/DL (3.4-5.0); ANION GAP 12 (8-16); BLOOD UREA NITROGEN 7 MG/DL (7-18); BUN/CREATININE RATIO 13.2 (6.6-38.0); CALCIUM 7.8 MG/DL (8.5-10.1); CHLORIDE 108 MMOL/L (99-107); CREATININE 0.53 MG/DL (0.40-0.90); GLUCOSE 179 MG/DL (70-104); PHOSPHORUS 1.8 MG/DL (2.3-4.5); POTASSIUM 3.6 MMOL/L (3.5-5.1); SODIUM 139 MMOL/L (135-145); TOTAL CARBON DIOXIDE 19.4 MMOL/L (24-32); eGFR > 90 ML/MIN
[2022-05-17] MEDS: CefTRIAXone/D5W-Rocephin 1gm 50 ML IV SCH (08:00)
[2022-05-17] MEDS: K and/or MAG REPLACEMENT MC SCH ×2 (08:00→20:00)
[2022-05-17] MEDS: Neutra Phos packet PO PRN ×3 (08:01→17:49)
[2022-05-17] MEDS: heparin, porcine 5000 units/ml vial SQ SCH ×2 (08:01→20:33)
[2022-05-17] MEDS: atorvastatin 20mg tablet PO SCH (08:02)
[2022-05-17] MEDS: aspirin 81mg, enteric-coated 1 TAB TABLET.DR PO SCH (08:02)
[2022-05-17] MEDS: ticagrelor 90mg tablet PO SCH ×2 (08:02→20:31)
[2022-05-17] MEDS: isosorbide mononitrate 30mg tab.SR.24H PO SCH (08:03)
--- NOTE | 2022-05-17 10:00 | NUR ---
Page Sent promotional table spacer PAGER ID: [phone] MESSAGE: [id number]. Eunice . Patient had 11 beat run of vtach. other vitals stable . Patient was asymptomatic. Lucila @[phone] (112 character message out of a maximum of 240) CLOSE [X] SEND ANOTHER PAGE
--- NOTE | 2022-05-17 10:29 | NUR ---
as clinical instructor i reviewed student nurse documentation
[2022-05-17 11:20] LABS: MAGNESIUM 1.5 MG/DL (1.5-2.4); PHOSPHORUS 1.7 MG/DL (2.3-4.5)
[2022-05-17 11:53] LABS: ANION GAP 12 (8-16); BLOOD UREA NITROGEN 5 MG/DL (7-18); BUN/CREATININE RATIO 9.1 (6.6-38.0); CALCIUM 8.3 MG/DL (8.5-10.1); CHLORIDE 108 MMOL/L (99-107); CREATININE 0.55 MG/DL (0.40-0.90); GLUCOSE 252 MG/DL (70-104); POTASSIUM 3.7 MMOL/L (3.5-5.1); SODIUM 137 MMOL/L (135-145); TOTAL CARBON DIOXIDE 17.1 MMOL/L (24-32); eGFR > 90 ML/MIN
--- NOTE | 2022-05-17 15:27 | NUR ---
DM Consult: Pt admit w/ DKA-now resolved hx DM w/ multiple admits for DKA past few months and seen by LENNY multiple times recent admits as well per EMR. LENNY d/w RN pt DM hx and questionable compliance w/ DM meds Rx in MD note this admit. Per RN, pt previously reported family assists w/ DM med coverage though per family pt is the one who is responsible for basal coverage injections. Will remain available if pt/family nutrition questions/concerns this admit. Addendum: 05/17/22 at [address] Amended: Links added.
[2022-05-17 17:05] LABS: ALBUMIN 1.7 G/DL (3.4-5.0); ANION GAP 10 (8-16); BLOOD UREA NITROGEN 3 MG/DL (7-18); BUN/CREATININE RATIO 5.2 (6.6-38.0); CALCIUM 7.7 MG/DL (8.5-10.1); CHLORIDE 108 MMOL/L (99-107); CREATININE 0.58 MG/DL (0.40-0.90); GLUCOSE 172 MG/DL (70-104); MAGNESIUM 1.2 MG/DL (1.5-2.4); SODIUM 137 MMOL/L (135-145); TOTAL CARBON DIOXIDE 18.6 MMOL/L (24-32); eGFR > 90 ML/MIN
[2022-05-17 17:38] LABS: PHOSPHORUS 1.1 MG/DL (2.3-4.5); POTASSIUM 2.6 MMOL/L (3.5-5.1)
[2022-05-17] MEDS: potassium Cl 20 mEq SR tablet PO PRN ×2 (17:49→22:17)
--- NOTE | 2022-05-17 18:00 | NUR ---
Page Sent promotional table spacer PAGER ID: [phone] MESSAGE: [phone] Eunice . PAtient phos 1.1 I have been replacing phos PO all day. could use IV k phos. Her PBNP doubled since admit.. Her RR is 30. she Had wheezes in left lung base today and trace pitting edema on left side. Liseth? Lucila @[phone] (235 character message out of a maximum of 240)
[2022-05-17] MEDS ORDERED: furosemide 20 MG/2 ML vial IV ONE (18:30)
--- NOTE | 2022-05-17 18:32 | NUR ---
Dr. Wen came down to look at patient after i phoned her with concerns about patient being fluid overloaded and it prevented her Co2 from correcting . RR 32 CO2 is 18.4 but started going down today the patient should have corrected. She had exp wheezes in left lung base this morn and trace pitting edema on the left side. This being asymmetrical I asked the patient if she slept on her left side last night and she said yes. I accidently ordered a PBNP this afternoon and it has almost doubled since admit. I am replacing mag 4 grams, phos po per protocol, and k po per protocol. I notified Dr. Wen that I have been chasing her phos all day PO and asked for IV K phos to which she replied keep replacing po per protocol. Last BG was 102 so per protocol I changed her fluids to D10 at 150 and called the pharmacy to request D10 1/2NS with potassium to keep BG 150-200 per protocol. Insulin is at 5 per order. Pharmacy stated I needed a new order for D10 1/2NS and they were going to contact Dr. Wen for order. Patient also has had 4 large diarrhea episodes during my shift which is also depleting electrolytes.
--- NOTE | 2022-05-17 18:48 | NUR ---
Per pharmacy D10 1/2NS is not something they have . They will have to contact Dr. Wen to see if D10 NS is ok to replace.
[2022-05-17] MEDS ORDERED: sodium chloride inj. 154 MEQ in Dextrose 10%-water IV solution 961.5 ML IV SCH (19:00)
[2022-05-17] MEDS ORDERED: sodium chloride inj. 154 MEQ in Dextrose 10%-water IV solution 961.5 ML IV PRN (19:04)
[2022-05-17 19:57] LABS: ALBUMIN 2.5 G/DL (3.4-5.0); ANION GAP 13 (8-16); BLOOD UREA NITROGEN 3 MG/DL (7-18); BUN/CREATININE RATIO 5.1 (6.6-38.0); CALCIUM 9.1 MG/DL (8.5-10.1); CHLORIDE 105 MMOL/L (99-107); CREATININE 0.59 MG/DL (0.40-0.90); GLUCOSE 63 MG/DL (70-104); SODIUM 141 MMOL/L (135-145); TOTAL CARBON DIOXIDE 22.9 MMOL/L (24-32); eGFR > 90 ML/MIN
[2022-05-17 20:02] LABS: POTASSIUM 2.7 MMOL/L (3.5-5.1)
[2022-05-17] MEDS: Insulin Reg/NS 100units/100mL 100 ML IV SCH (20:29)
--- NOTE | 2022-05-17 23:05 | NUR ---
Dr. Benitez came up to the floor to lay eyes on the patient to check status. After observation he changed the insulin drip to 3units/hr and changed d5 1/2NS to 100mls/hour. After talking more with the patient Dr. Benitez also decided to put her on a carb controlled diet. Dr. Benitez is also aware of low K level and currently trying to replace her K. Dr. Benitez also stated that she should be treated as a level 3 once we start sq insulin. Currently Dr. Benitez wants to keep her on insulin drip.
[2022-05-17 23:52] LABS: ANION GAP 13 (8-16); BLOOD UREA NITROGEN 2 MG/DL (7-18); BUN/CREATININE RATIO 3.9 (6.6-38.0); CALCIUM 8.4 MG/DL (8.5-10.1); CHLORIDE 106 MMOL/L (99-107); CREATININE 0.51 MG/DL (0.40-0.90); GLUCOSE 100 MG/DL (70-104); MAGNESIUM 2.1 MG/DL (1.5-2.4); PHOSPHORUS 1.5 MG/DL (2.3-4.5); SODIUM 141 MMOL/L (135-145); TOTAL CARBON DIOXIDE 22.3 MMOL/L (24-32); eGFR > 90 ML/MIN
[2022-05-18 00:04] LABS: POTASSIUM 2.8 MMOL/L (3.5-5.1)
[2022-05-18] MEDS: normal saline 1000ml 1,000 ML IV SCH ×5 (00:25→08:30)
[2022-05-18] MEDS: potassium Cl 20mEq in NS 1,000 ML IV SCH ×4 (00:26→09:40)
[2022-05-18] MEDS: dextrose 5%-1/2 normal saline 1,000 ML IV SCH ×2 (01:30→08:10)
[2022-05-18] MEDS: potassium Cl 20 mEq SR tablet PO PRN (02:15)
[2022-05-18 03:18] VITALS: BP 160/79
[2022-05-18 06:22] LABS: BASOPHILS % (AUTO) 0.3 % (0-1); EOSINOPHILS # (AUTO) 0.1 X10'3 (0-0.9); EOSINOPHILS % (AUTO) 0.8 % (0-6); HEMATOCRIT 31.3 % (35.0-45.0); HEMOGLOBIN 10.3 g/dl (12.0-16.0); LYMPHOCYTES # (AUTO) 1.8 X10'3 (1.1-4.8); LYMPHOCYTES % (AUTO) 16.5 % (21-51); MEAN PLATELET VOLUME 8.8 FL (7.4-10.4); MONOCYTES # (AUTO) 0.6 X10'3 (0-0.9); MONOCYTES % (AUTO) 5.9 % (2-12); NEUTROPHILS # (AUTO) 8.2 X10'3 (1.8-7.7); NEUTROPHILS % (AUTO) 76.5 % (42-75); PLATELET COUNT 349 X10'3 (140-440); RED BLOOD COUNT 3.44 X10'6 (4.20-5.60); WHITE BLOOD COUNT 10.7 X10'3 (4.5-11.0)
[2022-05-18 06:24] LABS: MAGNESIUM 1.6 MG/DL (1.5-2.4); POTASSIUM 3.2 MMOL/L (3.5-5.1)
--- NOTE | 2022-05-18 06:32 | NUR ---
Problems reprioritized. Patient report given, questions answered & plan of care reviewed with Leobardo ADAM.
--- NOTE | 2022-05-18 07:19 | NUR ---
PAGER ID: [phone] MESSAGE: Eunice [phone], Pt has resolved their DKA and was fed dinner last night. Pt is still on an insulin drip and D5. Can we DC insulin drip and start on hyper/hypoglycemia protocol? Leobardo [phone]
[2022-05-18 07:36] VITALS: BP 165/81
[2022-05-18] MEDS: K and/or MAG REPLACEMENT MC SCH (08:00)
[2022-05-18] MEDS: CefTRIAXone/D5W-Rocephin 1gm 50 ML IV SCH (08:04)
[2022-05-18] MEDS: atorvastatin 20mg tablet PO SCH (08:04)
[2022-05-18] MEDS: ticagrelor 90mg tablet PO SCH (08:05)
[2022-05-18] MEDS: isosorbide mononitrate 30mg tab.SR.24H PO SCH (08:05)
[2022-05-18] MEDS: aspirin 81mg, enteric-coated 1 TAB TABLET.DR PO SCH (08:05)
[2022-05-18] MEDS: heparin, porcine 5000 units/ml vial SQ SCH (08:06)
[2022-05-18] MEDS ORDERED: furosemide 40mg/4ml inj IV ONE (08:50)
--- NOTE | 2022-05-18 09:45 | NUR ---
Pt resolved DKA yesterday but was put on insulin by orders. I am awaiting Dr Wen to see if we can DC the pt off from Insulin.
[2022-05-18 10:35] LABS: ALBUMIN 1.9 G/DL (3.4-5.0); ANION GAP 9 (8-16); BLOOD UREA NITROGEN 3 MG/DL (7-18); BUN/CREATININE RATIO 4.1 (6.6-38.0); CHLORIDE 105 MMOL/L (99-107); CREATININE 0.73 MG/DL (0.40-0.90); GLUCOSE 275 MG/DL (70-104); POTASSIUM 3.7 MMOL/L (3.5-5.1); SODIUM 134 MMOL/L (135-145); TOTAL CARBON DIOXIDE 20.3 MMOL/L (24-32); eGFR 79 ML/MIN
--- NOTE | 2022-05-18 11:03 | NUR ---
Malnutrition Consult: Pt unsure of wt loss reports decreased intake AERONAUTICAL ENGINEERING TECHNOLOGIST per EMR. Pt pending scaled wt this admit though current reported wt consistent w/ prior reported wt hx this year w/ mild weakness, no wounds, and trace LLE/feet edemas per EMR. Likely decreased intake immediately AERONAUTICAL ENGINEERING TECHNOLOGIST given initial DKA DX however pt lacks malnutrition criteria at this time. Addendum: 05/18/22 at [address] Amended: Links added.
[2022-05-18] MEDS: insulin glargine (Lantus) pen - multi-dose SQ SCH (11:06)
--- NOTE | 2022-05-18 11:23 | NUR ---
Pt has resolved DKA and I discussed care with Dr Wen. Behzad wants me to keep pt on insulin drip for one more hour and administer her normal dose of Lantus (24units) now. After one hour recheck BS and DC insulin drip. Pt will be on normal ACHS checks with meals. If BS is balanced plan is to DC pt after 4 hours of observation and food. I have given the Lantus and will follow Dr's orders.
[2022-05-18 12:21] VITALS: BP 140/77
--- NOTE | 2022-05-18 12:26 | NUR ---
PAGER ID: [phone] MESSAGE: Eunice [id number], Insulin drip has been stopped and Lantus given. BS one hour after Lantus is 242. Leobardo [phone]
[2022-05-18] MEDS: insulin Lispro (HumaLOG) vial - multi-dose SQ SCH (13:03)
--- NOTE | 2022-05-18 13:39 | NUR ---
Pt has been DC'd as per 's orders. Pt was unhooked from all IV and tele. Education was provided at bedside with pt and family. All questions were answered and pt said they were ready to go home. All belongings were gathered up by family and pt and sent with pt. Pt was wheeled to lobby by care staff and will be driven home by family in a private vehicle.
== END 2022-05-18 13:37 | disposition home or self-care (01) | DRG 637 ==
LOC: ER 14:32 → ED HOLD 20:26 → PCU 3S 05-16 15:13
PROVIDERS: ADMIT Internal Medicine; ATTEND Internal Medicine
DX: E11.10 Type 2 diabetes mellitus with ketoacidosis without coma (principal); G93.41 Metabolic encephalopathy; I13.0 Hypertensive heart and chronic kidney disease with heart failure and stage 1 through stage 4 chronic kidney disease, or unspecified chronic kidney disease; M06.9 Rheumatoid arthritis, unspecified; D64.9 Anemia, unspecified; M81.0 Age-related osteoporosis without current pathological fracture; E87.6 Hypokalemia; F17.200 Nicotine dependence, unspecified, uncomplicated; D72.829 Elevated white blood cell count, unspecified; E11.22 Type 2 diabetes mellitus with diabetic chronic kidney disease; M54.2 Cervicalgia; I25.10 Atherosclerotic heart disease of native coronary artery without angina pectoris; I50.9 Heart failure, unspecified; N18.9 Chronic kidney disease, unspecified; Z82.49 Family history of ischemic heart disease and other diseases of the circulatory system; Z95.1 Presence of aortocoronary bypass graft; Z82.3 Family history of stroke
CPT/HCPCS: 36415; 36600; 71045; 80048; 80053; 81001; 82009; 82800; 82803; 82948; 83036; 83690; 83735; 83880; 84100; 84132; 84484; 85008; 85018; 85025; 87040; 87081; 93005; 99285; A4615; A5200; A6212; A6213; A6250; G0378; J0696; J1644; J1815; J1940; J2270; J3475; J3480; J3490; J7030; J7040; J7042; J7060; J7120

== ENCOUNTER 2022-05-22 13:45 | Emergency (ER) | payer MEDICARE, MEDICAID ==
[~2022-05-22] VITALS: Ht 154.9 cm; Wt 121.0 kg
[2022-05-22 15:17] LABS: BASOPHILS % (AUTO) 0.2 % (0-1); EOSINOPHILS % (AUTO) 0.1 % (0-6); HEMATOCRIT 33.6 % (35.0-45.0); HEMOGLOBIN 11.1 g/dl (12.0-16.0); LYMPHOCYTES # (AUTO) 1.6 X10'3 (1.1-4.8); LYMPHOCYTES % (AUTO) 18.1 % (21-51); MEAN CORPUSCULAR HEMOGLOBIN 30.7 PG (27.0-31.0); MEAN CORPUSCULAR HGB CONC 33.2 g/dL (33.0-36.5); MEAN CORPUSCULAR VOLUME 92.5 FL (78-98); MEAN PLATELET VOLUME 8.2 FL (7.4-10.4); MONOCYTES # (AUTO) 0.6 X10'3 (0-0.9); MONOCYTES % (AUTO) 6.3 % (2-12); NEUTROPHILS # (AUTO) 6.8 X10'3 (1.8-7.7); NEUTROPHILS % (AUTO) 75.3 % (42-75); PLATELET COUNT 516 X10'3 (140-440); RED BLOOD COUNT 3.63 X10'6 (4.20-5.60); RED CELL DISTRIBUTION WIDTH 18.7 % (11.5-14.5); WHITE BLOOD COUNT 9.1 X10'3 (4.5-11.0)
[2022-05-22 15:24] LABS: ALANINE AMINOTRANSFERASE 15 U/L (12-78); ALBUMIN 2.5 G/DL (3.4-5.0); ALBUMIN/GLOBULIN RATIO 0.5 (1.1-1.5); ALKALINE PHOSPHATASE 160 IU/L (46-116); ANION GAP 13 (8-16); ASPARTATE AMINO TRANSFERASE 17 U/L (10-37); BILIRUBIN,TOTAL 0.4 MG/DL (0.1-1.0); BLOOD UREA NITROGEN 14 MG/DL (7-18); CALCIUM 9.2 MG/DL (8.5-10.1); CHLORIDE 97 MMOL/L (99-107); GLUCOSE 444 MG/DL (70-104); MAGNESIUM 1.7 MG/DL (1.5-2.4); POTASSIUM 3.2 MMOL/L (3.5-5.1); SODIUM 133 MMOL/L (135-145); TOTAL CARBON DIOXIDE 22.7 MMOL/L (24-32); TOTAL PROTEIN 7.1 G/DL (6.4-8.2); eGFR 55 ML/MIN
[2022-05-22] MEDS ORDERED: normal saline 1000ml 1,000 ML IV ONE (15:35)
[2022-05-22] MEDS ORDERED: insulin regular, human 10 units/0.1 ml syringe IV ONE (15:35)
[2022-05-22] MEDS ORDERED: POTASSIUM BICARB 20meq eff tab 20 MEQ TABLET.EFF PO STA (15:39)
[2022-05-22 16:21] LABS: CLARITY,URINE CLEAR (Clear); COLOR,URINE YELLOW (Yellow); GLUCOSE, URINE >=1000 mg/dl (Neg); KETONES,URINE >=80 mg/dl (Neg); LEUKOCYTE ESTERASE ,URINE NEGATIVE (Neg); NITRITES, URINE NEGATIVE (Neg); OCCULT BLOOD,URINE NEGATIVE (Neg); PROTEIN,URINE NEGATIVE (Neg); UROBILINOGEN,URINE 0.2 E.U/dL (0.2-1.0)
[2022-05-22 16:28] LABS: BACTERIA,URINE NONE SEEN /HPF (Neg); MUCUS STRANDS FEW /LPF (Neg); RBC,URINE NONE SEEN /HPF (0-2); SQUAMOUS EPITHELIAL CELL,UR FEW /LPF (FEW); UA COLLECTION TYPE NON-SPECIFIED; WBC,URINE 0-4 /HPF (0-4)
[2022-05-22 18:20] VITALS: BP 124/64
== END 2022-05-22 18:05 | disposition home or self-care (01) ==
LOC: ER 13:46
DX: E13.65 Other specified diabetes mellitus with hyperglycemia (principal); I13.2 Hypertensive heart and chronic kidney disease with heart failure and with stage 5 chronic kidney disease, or end stage renal disease; E13.22 Other specified diabetes mellitus with diabetic chronic kidney disease; N18.6 End stage renal disease; Z79.899 Other long term (current) drug therapy; Z79.82 Long term (current) use of aspirin
CPT/HCPCS: 36415; 71045; 80053; 81001; 82948; 83735; 83880; 84484; 85025; 96361; 96374; 99284; J1815; J7030

== ENCOUNTER 2022-05-26 19:29 | Emergency (ER) | payer MEDICARE, MEDICAID ==
[~2022-05-26] VITALS: Ht 154.9 cm; Wt 55.0 kg
[2022-05-26 20:02] LABS: BASOPHILS % (AUTO) 0.5 % (0-1); EOSINOPHILS % (AUTO) 0.8 % (0-6); HEMATOCRIT 32.2 % (35.0-45.0); HEMOGLOBIN 10.2 g/dl (12.0-16.0); LYMPHOCYTES % (AUTO) 17.9 % (21-51); MEAN CORPUSCULAR HEMOGLOBIN 30.7 PG (27.0-31.0); MEAN CORPUSCULAR HGB CONC 31.7 g/dL (33.0-36.5); MEAN PLATELET VOLUME 8.6 FL (7.4-10.4); MONOCYTES # (AUTO) 0.3 X10'3 (0-0.9); MONOCYTES % (AUTO) 5.6 % (2-12); NEUTROPHILS # (AUTO) 4.2 X10'3 (1.8-7.7); NEUTROPHILS % (AUTO) 75.2 % (42-75); PLATELET COUNT 362 X10'3 (140-440); RED BLOOD COUNT 3.32 X10'6 (4.20-5.60); RED CELL DISTRIBUTION WIDTH 19.3 % (11.5-14.5); WHITE BLOOD COUNT 5.6 X10'3 (4.5-11.0)
[2022-05-26 20:15] LABS: ALANINE AMINOTRANSFERASE 12 U/L (12-78); ALBUMIN 2.3 G/DL (3.4-5.0); ALBUMIN/GLOBULIN RATIO 0.6 (1.1-1.5); ALKALINE PHOSPHATASE 132 IU/L (46-116); ANION GAP 9 (8-16); ASPARTATE AMINO TRANSFERASE 28 U/L (10-37); BILIRUBIN,TOTAL 0.4 MG/DL (0.1-1.0); BLOOD UREA NITROGEN 16 MG/DL (7-18); BUN/CREATININE RATIO 16.8 (6.6-38.0); CALCIUM 7.7 MG/DL (8.5-10.1); CHLORIDE 93 MMOL/L (99-107); CREATININE 0.95 MG/DL (0.40-0.90); POTASSIUM 3.5 MMOL/L (3.5-5.1); SODIUM 126 MMOL/L (135-145); TOTAL CARBON DIOXIDE 23.7 MMOL/L (24-32); TOTAL PROTEIN 6.1 G/DL (6.4-8.2); eGFR 58 ML/MIN
[2022-05-26 20:25] LABS: LIPASE 630 U/L (73-393)
[2022-05-26 20:30] LABS: GLUCOSE 1000 MG/DL (70-104)
[2022-05-26] MEDS ORDERED: normal saline 1000ML IV soln IVB ONE (20:30)
[2022-05-26] MEDS ORDERED: insulin regular, human 10 units/0.1 ml syringe IV ONE ×2 (20:30→22:20)
[2022-05-26 21:10] LABS: ANISOCYTOSIS 2+; PLATELET ESTIMATE NORMAL
[2022-05-26 21:11] LABS: LARGE PLATELETS FEW; POLYCHROMASIA FEW
[2022-05-26] MEDS ORDERED: ringers solution, lactated 1000ml IV soln IV ONE (21:20)
[2022-05-26 22:52] VITALS: BP 161/61
== END 2022-05-27 05:49 | disposition home or self-care (01) ==
LOC: ER 19:30
DX: E11.65 Type 2 diabetes mellitus with hyperglycemia (principal); I13.2 Hypertensive heart and chronic kidney disease with heart failure and with stage 5 chronic kidney disease, or end stage renal disease; E11.22 Type 2 diabetes mellitus with diabetic chronic kidney disease; N18.6 End stage renal disease; I50.89 Other heart failure; Z79.899 Other long term (current) drug therapy
CPT/HCPCS: 36415; 71045; 80053; 82948; 83690; 83880; 84484; 85008; 85025; 96361; 96374; 96376; 99285; J1815; J7030; J7120; 93005

== ENCOUNTER 2022-06-04 01:21 | Inpatient (IN) | payer MEDICARE, MEDICAID ==
[2022-06-04] VITALS (9 sets, daily range): BP systolic 135–170; BP diastolic 64–83
[~2022-06-04] VITALS: Ht 154.9 cm; Wt 65.0 kg
[2022-06-04 02:10] LABS: CLARITY,URINE CLEAR (Clear); COLOR,URINE STRAW (Yellow); GLUCOSE, URINE NEGATIVE (Neg); KETONES,URINE NEGATIVE (Neg); LEUKOCYTE ESTERASE ,URINE NEGATIVE (Neg); NITRITES, URINE POSITIVE (Neg); OCCULT BLOOD,URINE NEGATIVE (Neg); PH,URINE 7.5 (4.8-8.0); PROTEIN,URINE NEGATIVE (Neg); UROBILINOGEN,URINE 0.2 E.U/dL (0.2-1.0)
[2022-06-04 02:14] LABS: UA COLLECTION TYPE NON-SPECIFIED
[2022-06-04 02:15] LABS: BASOPHILS % (AUTO) 0.5 % (0-1); EOSINOPHILS # (AUTO) 0.1 X10'3 (0-0.9); EOSINOPHILS % (AUTO) 1.8 % (0-6); HEMATOCRIT 29.1 % (35.0-45.0); HEMOGLOBIN 9.7 g/dl (12.0-16.0); LYMPHOCYTES # (AUTO) 2.3 X10'3 (1.1-4.8); LYMPHOCYTES % (AUTO) 29.2 % (21-51); MEAN CORPUSCULAR HEMOGLOBIN 30.3 PG (27.0-31.0); MEAN CORPUSCULAR HGB CONC 33.5 g/dL (33.0-36.5); MEAN CORPUSCULAR VOLUME 90.5 FL (78-98); MONOCYTES # (AUTO) 0.4 X10'3 (0-0.9); MONOCYTES % (AUTO) 4.8 % (2-12); NEUTROPHILS % (AUTO) 63.7 % (42-75); PLATELET COUNT 426 X10'3 (140-440); RED BLOOD COUNT 3.22 X10'6 (4.20-5.60); RED CELL DISTRIBUTION WIDTH 18.6 % (11.5-14.5); WHITE BLOOD COUNT 7.8 X10'3 (4.5-11.0)
[2022-06-04 02:16] LABS: WBC,URINE 0-4 /HPF (0-4)
[2022-06-04 02:17] LABS: BACTERIA,URINE 4+ /HPF (Neg); MUCUS STRANDS FEW /LPF (Neg); RBC,URINE 0-2 /HPF (0-2); SQUAMOUS EPITHELIAL CELL,UR FEW /LPF (FEW)
--- NOTE | 2022-06-04 02:23 | NUR ---
Patient glucose updated, remains 57. Patient remains awake and alert. Patient given additional food and beverage items to maintain glucose.
[2022-06-04 02:34] LABS: ALANINE AMINOTRANSFERASE 28 U/L (12-78); ALBUMIN 2.3 G/DL (3.4-5.0); ALBUMIN/GLOBULIN RATIO 0.5 (1.1-1.5); ALKALINE PHOSPHATASE 134 IU/L (46-116); ANION GAP 7 (8-16); ASPARTATE AMINO TRANSFERASE 38 U/L (10-37); BILIRUBIN,TOTAL 0.3 MG/DL (0.1-1.0); BLOOD UREA NITROGEN 10 MG/DL (7-18); BUN/CREATININE RATIO 16.1 (6.6-38.0); CALCIUM 8.7 MG/DL (8.5-10.1); CHLORIDE 103 MMOL/L (99-107); CREATININE 0.62 MG/DL (0.40-0.90); GLUCOSE 107 MG/DL (70-104); MAGNESIUM 1.7 MG/DL (1.5-2.4); SODIUM 141 MMOL/L (135-145); TOTAL CARBON DIOXIDE 30.8 MMOL/L (24-32); TOTAL PROTEIN 6.9 G/DL (6.4-8.2); eGFR > 90 ML/MIN
[2022-06-04] MEDS ORDERED: CefTRIAXone/D5W-Rocephin 1gm 50 ML IV ONE (02:35)
[2022-06-04 02:36] LABS: POTASSIUM 2.9 MMOL/L (3.5-5.1)
[2022-06-04] MEDS ORDERED: potassium CL 10mEq/100ml bag 100 ML IV SCH (02:45)
[2022-06-04] MEDS ORDERED: POTASSIUM BICARB 20meq eff tab 20 MEQ TABLET.EFF PO ONE (03:00)
[2022-06-04 03:21] LABS: ANISOCYTOSIS 2+; PLATELET ESTIMATE NORMAL
[2022-06-04 03:22] LABS: LARGE PLATELETS FEW
[2022-06-04] MEDS ORDERED: magnesium Cl slow-release 64mg tablet PO PRN (03:25)
[2022-06-04] MEDS ORDERED: morphine 2 MG/ML inj. syringe IV PRN (03:25)
[2022-06-04] MEDS ORDERED: metoprolol tartrate 1mg/ml inj IV PRN (03:25)
[2022-06-04] MEDS ORDERED: regadenoson 0.4mg/5ml syringe IV PRN (03:25)
[2022-06-04] MEDS ORDERED: ondansetron/PF 4mg/2ml inj IV PRN (03:25)
[2022-06-04] MEDS ORDERED: HYDROcodone/acetaminophen 5mg/325mg tablet PO PRN (03:25)
[2022-06-04] MEDS ORDERED: acetaminophen 325mg tablet PO PRN ×2 (03:25)
[2022-06-04] MEDS ORDERED: potassium Cl 20 mEq SR tablet PO PRN ×2 (03:25)
[2022-06-04] MEDS ORDERED: normal saline 1000ml 1,000 ML IV SCH (03:25)
[2022-06-04] MEDS ORDERED: magnesium 4gm in 100ml NS 100 ML IV PRN (03:25)
[2022-06-04] MEDS ORDERED: potassium Cl 40MEQ/1/2NS 520ml 520 ML IV PRN (03:25)
[2022-06-04] MEDS ORDERED: aminophylline 250mg/10ml inj. IV PRN (03:25)
[2022-06-04] MEDS ORDERED: nitroGLYCERIN 0.4mg SUBLingual tab SL PRN (03:25)
[2022-06-04] MEDS ORDERED: insulin Lispro (HumaLOG) vial - multi-dose SQ SCH (03:35)
[2022-06-04] MEDS ORDERED: DEXTROSE 15 GM of carb/4 tabs (each vial/BOTTLE has 4 tablets) PO PRN (03:35)
[2022-06-04] MEDS ORDERED: glucagon, human recombinant 1mg kit SUBCUT PRN (03:35)
[2022-06-04] MEDS ORDERED: MESSAGE TO PHARMACY PO ONE (03:35)
[2022-06-04] MEDS: DEXTROSE 15 GM of carb/4 tabs (each vial/BOTTLE has 4 tablets) PO PRN ×2 (05:19→06:42)
--- NOTE | 2022-06-04 06:01 | NUR ---
Patient 3rd troponin called to provider, no changes to existing orders.
--- NOTE | 2022-06-04 06:37 | NUR ---
Report called to Ana Cristina at this time who kindly accepts report, patient pending bed being placed in room, staff will call when ready.
--- NOTE | 2022-06-04 06:46 | NUR ---
Ana Cristina called with update of low glucose, patient is eating glucose tablets at this time.
[2022-06-04] MEDS: dextrose 50%-water 50ml dispensing syringe IV PRN ×4 (07:14→12:43)
[2022-06-04] MEDS: heparin, porcine 5000 units/ml vial SQ SCH ×2 (07:32→19:41)
--- NOTE | 2022-06-04 07:40 | NUR ---
iv infiltrated attempting to place new iv
--- NOTE | 2022-06-04 10:18 | NUR ---
PAGED DR. LORENZANA FOR PRIMARY RN REGARDING PATIENT'S LOW BLOOD SUGAR AND ONLY BEING ON NORMAL SALINE AND NPO. Message: [phone]. DAVID GARCIA. PATIENT HAS A BLOOD SUGAR OF 20. PATIENT NPO AND ON NORMAL SALINE. MAY WE HAVE DIFFERENT FLUIDS? THANK YOU. KRISTIN ADAM X [phone]
--- NOTE | 2022-06-04 12:11 | NUR ---
Nuc med rn spoke with primary rn regarding pts blood sugar. Nuc med rn aware, will continue to monitor pt closely. will proceed with stress test as ordered.
[2022-06-04] MEDS: dextrose 5%-lactated ringers 1,000 ML IV SCH ×2 (12:41→23:14)
--- NOTE | 2022-06-04 16:14 | NUR ---
Pt initially arrived on PCU with hypoglycemia blood glucose 46. hypoglycemia protocol was followed. MD ordered D5LR @100. Stress test was performed. Current blood glucose 124. Patient hypertensive, notified. Will continue to monitor patient.
--- NOTE | 2022-06-04 18:43 | NUR ---
Problems reprioritized. Patient report given, questions answered & plan of care reviewed with fransisco lockwood.
[2022-06-04] MEDS: insulin glargine (Lantus) pen - multi-dose SQ SCH (21:00)
[2022-06-04] MEDS ORDERED: temazepam 15mg capsule PO PRN (21:00)
[2022-06-05 07:00] VITALS: BP 146/66
[2022-06-05 07:00] LABS: BASOPHILS % (AUTO) 0.3 % (0-1); EOSINOPHILS # (AUTO) 0.1 X10'3 (0-0.9); EOSINOPHILS % (AUTO) 1.6 % (0-6); HEMATOCRIT 27.4 % (35.0-45.0); HEMOGLOBIN 9.1 g/dl (12.0-16.0); LYMPHOCYTES # (AUTO) 1.7 X10'3 (1.1-4.8); LYMPHOCYTES % (AUTO) 25.5 % (21-51); MEAN CORPUSCULAR HEMOGLOBIN 30.1 PG (27.0-31.0); MEAN CORPUSCULAR HGB CONC 33.1 g/dL (33.0-36.5); MEAN CORPUSCULAR VOLUME 90.9 FL (78-98); MEAN PLATELET VOLUME 8.2 FL (7.4-10.4); MONOCYTES # (AUTO) 0.4 X10'3 (0-0.9); MONOCYTES % (AUTO) 6.5 % (2-12); NEUTROPHILS # (AUTO) 4.5 X10'3 (1.8-7.7); NEUTROPHILS % (AUTO) 66.1 % (42-75); PLATELET COUNT 419 X10'3 (140-440); RED BLOOD COUNT 3.02 X10'6 (4.20-5.60); RED CELL DISTRIBUTION WIDTH 18.2 % (11.5-14.5); WHITE BLOOD COUNT 6.9 X10'3 (4.5-11.0)
[2022-06-05 07:16] LABS: ALANINE AMINOTRANSFERASE 36 U/L (12-78); ALBUMIN/GLOBULIN RATIO 0.5 (1.1-1.5); ALKALINE PHOSPHATASE 148 IU/L (46-116); ANION GAP 4 (8-16); ASPARTATE AMINO TRANSFERASE 46 U/L (10-37); BILIRUBIN,TOTAL 0.4 MG/DL (0.1-1.0); BLOOD UREA NITROGEN 6 MG/DL (7-18); BUN/CREATININE RATIO 12.2 (6.6-38.0); CALCIUM 8.5 MG/DL (8.5-10.1); CHLORIDE 105 MMOL/L (99-107); CREATININE 0.49 MG/DL (0.40-0.90); GLUCOSE 135 MG/DL (70-104); MAGNESIUM 1.6 MG/DL (1.5-2.4); PHOSPHORUS 3.8 MG/DL (2.3-4.5); SODIUM 141 MMOL/L (135-145); TOTAL CARBON DIOXIDE 31.8 MMOL/L (24-32); TOTAL PROTEIN 6.2 G/DL (6.4-8.2); eGFR > 90 ML/MIN
[2022-06-05 07:21] LABS: POTASSIUM 2.8 MMOL/L (3.5-5.1)
--- NOTE | 2022-06-05 07:34 | NUR ---
Paged Dr Levy: Eunice 27A. FYI: K+ critical 2.8. Replacing via IV 40meQ per protocol. Bernie [phone]
--- NOTE | 2022-06-05 07:36 | NUR ---
Called Pharmacy. s/w Khushboo. Need 2 doses 40mEq K+. RN to follow
[2022-06-05] MEDS: Potassium Cl 40 MEQ in sodium chloride 0.45% 500 ML IV ONE ×2 (07:40→08:11)
[2022-06-05] MEDS: heparin, porcine 5000 units/ml vial SQ SCH ×2 (08:10→19:49)
[2022-06-05] MEDS: dextrose 5%-lactated ringers 1,000 ML IV SCH ×2 (08:25→19:51)
--- NOTE | 2022-06-05 11:46 | NUR ---
Lost IV access (infiltration x2). Will replace via PO. electrical checkout mechanic to attempt restart
[2022-06-05 11:55] VITALS: BP 179/79
--- NOTE | 2022-06-05 11:58 | NUR ---
Paged Dr Levy" Eunice 27A. BP 179/79 HR 79. No PRN available. Bernie [phone]
[2022-06-05] MEDS ORDERED: Potassium Cl 40 MEQ in sodium chloride 0.45% 500 ML IV ONE (12:00)
--- NOTE | 2022-06-05 13:23 | NUR ---
Total linen change
[2022-06-05] MEDS ORDERED: mag hydrox/Alum hydrox/simeth 30ml oral suspension PO PRN (15:15)
[2022-06-05] MEDS ORDERED: pantoprazole 40mg Tablet.DR PO SCH (15:30)
--- NOTE | 2022-06-05 16:41 | NUR ---
Pagekeli Levy: Eunice Prieto. Pt c/o sternal pain 01/03, SOB, 89% RA. Placed on 1LNC and ordering STAT EKG. No tele events. Replacing K+ PO 40mEQ and IV 40mEQ per IV access issues. Bernie Mazariegos Addendum: 06/05/22 at 1714 by Bernie Mazariegos RN 1713: Paged Dr Levy: Eunice DaltonA. STAT EKG resulted. It is on the chart for your interpretation (witbin 10 minutes). Bernie Mazariegos Addendum: 06/05/22 at 1728 by Bernie Mazariegos RN 1728: Eunice 27A. STAT EKG resulted. It is on the chart for your interpretation (witbin 10 minutes). Bernie Mazariegos
[2022-06-05] MEDS: ticagrelor 90mg tablet PO SCH (19:50)
[2022-06-05] MEDS: insulin glargine (Lantus) pen - multi-dose SQ SCH (21:46)
[2022-06-06] MEDS ORDERED: potassium Cl 20 mEq SR tablet PO PRN (01:30)
[2022-06-06] MEDS: dextrose 5%-lactated ringers 1,000 ML IV SCH (05:10)
[2022-06-06 06:00] VITALS: BP 160/88
[2022-06-06 06:14] LABS: BASOPHILS % (AUTO) 0.4 % (0-1); EOSINOPHILS # (AUTO) 0.1 X10'3 (0-0.9); EOSINOPHILS % (AUTO) 1.1 % (0-6); HEMATOCRIT 29.8 % (35.0-45.0); HEMOGLOBIN 9.7 g/dl (12.0-16.0); LYMPHOCYTES # (AUTO) 1.2 X10'3 (1.1-4.8); LYMPHOCYTES % (AUTO) 15.6 % (21-51); MEAN CORPUSCULAR HEMOGLOBIN 29.7 PG (27.0-31.0); MEAN CORPUSCULAR HGB CONC 32.6 g/dL (33.0-36.5); MEAN CORPUSCULAR VOLUME 91.1 FL (78-98); MEAN PLATELET VOLUME 8.2 FL (7.4-10.4); MONOCYTES # (AUTO) 0.6 X10'3 (0-0.9); MONOCYTES % (AUTO) 7.8 % (2-12); NEUTROPHILS % (AUTO) 75.1 % (42-75); PLATELET COUNT 479 X10'3 (140-440); RED BLOOD COUNT 3.27 X10'6 (4.20-5.60); RED CELL DISTRIBUTION WIDTH 18.7 % (11.5-14.5)
[2022-06-06 06:23] LABS: ALANINE AMINOTRANSFERASE 35 U/L (12-78); ALBUMIN 2.3 G/DL (3.4-5.0); ALBUMIN/GLOBULIN RATIO 0.5 (1.1-1.5); ALKALINE PHOSPHATASE 187 IU/L (46-116); ANION GAP 7 (8-16); ASPARTATE AMINO TRANSFERASE 37 U/L (10-37); BILIRUBIN,TOTAL 0.6 MG/DL (0.1-1.0); BLOOD UREA NITROGEN 6 MG/DL (7-18); BUN/CREATININE RATIO 11.5 (6.6-38.0); CALCIUM 9.2 MG/DL (8.5-10.1); CHLORIDE 105 MMOL/L (99-107); CREATININE 0.52 MG/DL (0.40-0.90); GLUCOSE 118 MG/DL (70-104); MAGNESIUM 1.7 MG/DL (1.5-2.4); PHOSPHORUS 3.6 MG/DL (2.3-4.5); POTASSIUM 3.5 MMOL/L (3.5-5.1); SODIUM 139 MMOL/L (135-145); TOTAL CARBON DIOXIDE 27.3 MMOL/L (24-32); eGFR > 90 ML/MIN
[2022-06-06] MEDS ORDERED: aspirin 81mg, enteric-coated 1 TAB TABLET.DR PO SCH (08:00)
[2022-06-06] MEDS ORDERED: isosorbide mononitrate 30mg tab.SR.24H PO SCH (08:00)
[2022-06-06] MEDS ORDERED: K and/or MAG REPLACEMENT MC SCH (08:00)
[2022-06-06] MEDS ORDERED: atorvastatin 20mg tablet PO SCH (08:00)
[2022-06-06] MEDS: heparin, porcine 5000 units/ml vial SQ SCH (08:03)
[2022-06-06] MEDS: ticagrelor 90mg tablet PO SCH (08:04)
--- NOTE | 2022-06-06 08:15 | NUR ---
O2 Sat at rest on room air:92_% If below 89%: Recovery O2 Sat at rest on ___LPM:___%:___% via (mask/nasal cannula, etc..) No further documentation is necessary. If O2 Sat did not drop below 89% on room air,ambulate patient on room air. O2 Sat while ambulating on room air: 84 % Recovery O2 Sat while ambulating on 2 LPM: 92% No further documentation is necessary. If patient does not drop below 89% while ambulating, he/she does not qualify for home O2.
--- NOTE | 2022-06-06 09:19 | NUR ---
Pt did not eat enough breakfast, CBG 135 , brittle and CBG will drop, will not tx with insulin. RN to continue to monitor.
--- NOTE | 2022-06-06 09:20 | NUR ---
received report from mandie brown
--- NOTE | 2022-06-06 09:31 | NUR ---
0800: Called Sheri and informed home O2 would be needed. Filled out qualifier. Pt aware Addendum: 06/06/22 at 1018 by Bernie Mazariegos RN Pt has gluteal fold excoriation. Education provided to pt to stay dry per incontinence. Addendum: 06/06/22 at 1236 by Bernie Mazariegos RN Wound care consulted
[2022-06-06 09:49] VITALS: BP 161/61
--- NOTE | 2022-06-06 09:58 | NUR ---
sent page to case aide because fam member was requesting to have a bed side commode and a shower chair on discharge
--- NOTE | 2022-06-06 13:00 | NUR ---
pt d/c with instructions, understanding of instructions and w/all belongings in wheelchair accompanied by nursing staff to f/u w/pcp
--- NOTE | 2022-07-04 11:15 | NUR ---
Case Management DC follow up:VM with name, reason for call, and telephone number.
== END 2022-06-06 13:00 | disposition home or self-care (01) | DRG 281 ==
LOC: ER 01:22 → ED HOLD 03:30 → PCU 3S 07:12 → ORTHO 4S 06-06 09:30
PROVIDERS: ADMIT Internal Medicine; ATTEND Family Medicine
PROC: 4A02XM4 Measurement of Cardiac Total Activity, External Approach (ICD-10-PCS; principal; 2022-06-04)
PROC: 3E033HZ Introduction of Radioactive Substance into Peripheral Vein, Percutaneous Approach (ICD-10-PCS; 2022-06-04)
DX: I25.119 Atherosclerotic heart disease of native coronary artery with unspecified angina pectoris (principal); I21.A1 Myocardial infarction type 2; I13.0 Hypertensive heart and chronic kidney disease with heart failure and stage 1 through stage 4 chronic kidney disease, or unspecified chronic kidney disease; I50.22 Chronic systolic (congestive) heart failure; E11.22 Type 2 diabetes mellitus with diabetic chronic kidney disease; E11.65 Type 2 diabetes mellitus with hyperglycemia; E87.6 Hypokalemia; F03.A0 Unspecified dementia, mild, without behavioral disturbance, psychotic disturbance, mood disturbance, and anxiety; F17.210 Nicotine dependence, cigarettes, uncomplicated; N18.30 Chronic kidney disease, stage 3 unspecified; I25.10 Atherosclerotic heart disease of native coronary artery without angina pectoris; R55 Syncope and collapse; R94.39 Abnormal result of other cardiovascular function study; M06.9 Rheumatoid arthritis, unspecified; I25.2 Old myocardial infarction; Z82.3 Family history of stroke; Z82.49 Family history of ischemic heart disease and other diseases of the circulatory system; Z95.1 Presence of aortocoronary bypass graft; Z79.899 Other long term (current) drug therapy; Z79.82 Long term (current) use of aspirin; Z79.4 Long term (current) use of insulin; E11.649 Type 2 diabetes mellitus with hypoglycemia without coma
CPT/HCPCS: 36415; 71045; 78452; 80053; 81001; 82948; 83735; 83880; 84100; 84484; 85008; 85025; 85610; 93005; 93017; 93306; 96365; 97161; 97530; 99285; A9500; G0378; J0696; J1644; J1815; J2785; J3480; J3490; J7030; J7121

== ENCOUNTER 2022-07-24 12:47 | Inpatient (IN) | payer MEDICARE, MEDICAID ==
[~2022-07-24] VITALS: Ht 154.9 cm; Wt 55.5 kg
[2022-07-24] MEDS ORDERED: mag hydrox/Alum hydrox/simeth 30ml oral suspension PO ONE (13:20)
[2022-07-24] MEDS ORDERED: LIDOcaine Viscous 15ml cup MM ONE (13:20)
[2022-07-24 13:21] LABS: CLARITY,URINE CLEAR (Clear); COLOR,URINE YELLOW (Yellow); GLUCOSE, URINE >=1000 mg/dl (Neg); KETONES,URINE >=80 mg/dl (Neg); LEUKOCYTE ESTERASE ,URINE NEGATIVE (Neg); NITRITES, URINE NEGATIVE (Neg); OCCULT BLOOD,URINE TRACE-INTACT (Neg); PROTEIN,URINE NEGATIVE (Neg); UROBILINOGEN,URINE 0.2 E.U/dL (0.2-1.0)
[2022-07-24 13:32] LABS: UA COLLECTION TYPE STRAIGHT CATH
[2022-07-24 13:32] LABS: BASOPHILS % (AUTO) 0.3 % (0-1); EOSINOPHILS % (AUTO) 0.2 % (0-6); HEMATOCRIT 36.5 % (35.0-45.0); HEMOGLOBIN 11.7 g/dl (12.0-16.0); LYMPHOCYTES % (AUTO) 11.2 % (21-51); MEAN CORPUSCULAR HEMOGLOBIN 27.8 PG (27.0-31.0); MEAN CORPUSCULAR HGB CONC 32.1 g/dL (33.0-36.5); MEAN CORPUSCULAR VOLUME 86.7 FL (78-98); MEAN PLATELET VOLUME 9.2 FL (7.4-10.4); MONOCYTES # (AUTO) 0.4 X10'3 (0-0.9); MONOCYTES % (AUTO) 4.7 % (2-12); NEUTROPHILS # (AUTO) 7.7 X10'3 (1.8-7.7); NEUTROPHILS % (AUTO) 83.6 % (42-75); PLATELET COUNT 313 X10'3 (140-440); RED BLOOD COUNT 4.21 X10'6 (4.20-5.60); RED CELL DISTRIBUTION WIDTH 16.8 % (11.5-14.5); WHITE BLOOD COUNT 9.2 X10'3 (4.5-11.0)
[2022-07-24 13:33] LABS: RBC,URINE 0-2 /HPF (0-2); WBC,URINE 0-4 /HPF (0-4)
[2022-07-24 13:34] LABS: AMORPHOUS URATES 1+; BACTERIA,URINE FEW /HPF (Neg); MUCUS STRANDS NONE SEEN /LPF (Neg); SQUAMOUS EPITHELIAL CELL,UR FEW /LPF (FEW)
[2022-07-24] MEDS ORDERED: ondansetron/PF 4mg/2ml inj IV ONE (13:45)
[2022-07-24] MEDS ORDERED: normal saline 1000ML IV soln IVB ONE ×2 (13:45→14:20)
[2022-07-24 13:58] LABS: ALANINE AMINOTRANSFERASE 19 U/L (12-78); ALBUMIN 3.1 G/DL (3.4-5.0); ALBUMIN/GLOBULIN RATIO 0.8 (1.1-1.5); ALKALINE PHOSPHATASE 93 IU/L (46-116); ANION GAP 19 (8-16); ASPARTATE AMINO TRANSFERASE 15 U/L (10-37); BILIRUBIN,TOTAL 0.5 MG/DL (0.1-1.0); BLOOD UREA NITROGEN 19 MG/DL (7-18); BUN/CREATININE RATIO 21.3 (10.0-20.0); CALCIUM 8.8 MG/DL (8.5-10.1); CHLORIDE 97 MMOL/L (99-107); CREATININE 0.89 MG/DL (0.40-0.90); LIPASE 827 U/L (73-393); POTASSIUM 4.2 MMOL/L (3.5-5.1); SODIUM 134 MMOL/L (135-145); TOTAL CARBON DIOXIDE 17.8 MMOL/L (24-32); TOTAL PROTEIN 7.1 G/DL (6.4-8.2); eGFR 63 ML/MIN
[2022-07-24 14:08] LABS: GLUCOSE 487 MG/DL (70-104)
[2022-07-24] MEDS ORDERED: insulin regular, human 10 units/0.1 ml syringe IV ONE (14:20)
[2022-07-24 15:17] LABS: ABG BASE EXCESS -11.4 mmol/L (-2.0-2.0); ABG HCO3 13.8 mmol/L (22.0-26.0); ABG OXYGEN SATURATION 93.1 % (94-97); ABG PCO2 (T) 28.8 mmHg (32.0-45.0); ALLEN'S TEST POSITIVE; FMetHb 0.1 % (0.0-1.5); FO2Hb 91.1 % (94-97); PATIENT TEMPERATURE 36.6; TOTAL HEMOGLOBIN 12.1 G/dl (12.0-16.0)
[2022-07-24] MEDS ORDERED: metoclopramide 5 mg/ml inj IV ONE (15:35)
[2022-07-24] MEDS ORDERED: Insulin Reg/NS 100units/100mL 100 ML IV SCH (15:55)
[2022-07-24] MEDS ORDERED: mag hydrox/Alum hydrox/simeth 30ml oral suspension PO PRN (15:55)
[2022-07-24] MEDS ORDERED: potassium Cl 40MEQ/1/2NS 520ml 520 ML IV PRN (15:55)
[2022-07-24] MEDS: normal saline 1000ml 1,000 ML IV SCH ×3 (15:55→23:55)
[2022-07-24] MEDS ORDERED: magnesium 4gm in 100ml NS 100 ML IV PRN (15:55)
[2022-07-24] MEDS ORDERED: acetaminophen 325mg tablet PO PRN (15:55)
[2022-07-24] MEDS ORDERED: potassium Cl 20 mEq SR tablet PO PRN ×2 (15:55)
[2022-07-24] MEDS ORDERED: magnesium 2GM in 50ml NS 50 ML IV PRN (15:55)
[2022-07-24] MEDS ORDERED: potassium CL 20mEq in D5-1/2NS 1,000 ML IV PRN (15:55)
[2022-07-24] MEDS ORDERED: Neutra Phos packet PO PRN (15:55)
[2022-07-24] MEDS ORDERED: sodium bicarbonate (8.4%) inj. 50 MEQ in dextrose 5% water 500ml 250 ML IV PRN (15:55)
[2022-07-24] MEDS ORDERED: sodium phosphate inj. 30 MMOL in dextrose 5%-water 250 ML IV PRN (15:55)
[2022-07-24] MEDS ORDERED: ondansetron/PF 4mg/2ml inj IV PRN (15:55)
[2022-07-24] MEDS ORDERED: sodium bicarbonate (8.4%) inj. 100 MEQ in dextrose 5% water 500ml 500 ML IV PRN (15:55)
[2022-07-24] MEDS ORDERED: sodium phosphate inj. 15 MMOL in dextrose 5%-water 250 ML IV PRN (15:55)
[2022-07-24] MEDS ORDERED: insulin regular, human U-100 3ml vial - multi-dose IV PRN (15:55)
[2022-07-24] MEDS ORDERED: POTA-82 PO (16:28)
[2022-07-24] MEDS ORDERED: FURO40TA4 PO (16:28)
[2022-07-24 16:45] LABS: ALBUMIN 2.9 G/DL (3.4-5.0); ANION GAP 14 (8-16); BLOOD UREA NITROGEN 14 MG/DL (7-18); BUN/CREATININE RATIO 17.5 (10.0-20.0); CALCIUM 7.9 MG/DL (8.5-10.1); CHLORIDE 103 MMOL/L (99-107); GLUCOSE 326 MG/DL (70-104); PHOSPHORUS 2.8 MG/DL (2.3-4.5); POTASSIUM 3.9 MMOL/L (3.5-5.1); SODIUM 136 MMOL/L (135-145); eGFR 71 ML/MIN
[2022-07-24] MEDS ORDERED: nitroGLYCERIN 0.4mg SUBLingual tab SL PRN (16:45)
--- NOTE | 2022-07-24 17:47 | NUR ---
Gown and linen changed at this time for incontinent void x1 at this time. All safety measures in place.
[2022-07-24] MEDS: docusate sod 100mg capsule PO SCH (20:00)
[2022-07-24] MEDS ORDERED: enoxaparin 40mg/0.4ml syringe SQ SCH (20:00)
[2022-07-24] MEDS ORDERED: pantoprazole 40MG/NS 100ML BAG 100 ML IV SCH (20:00)
[2022-07-24] MEDS: K and/or MAG REPLACEMENT MC SCH (20:00)
[2022-07-24 20:04] LABS: ALANINE AMINOTRANSFERASE 16 U/L (12-78); ALBUMIN 2.8 G/DL (3.4-5.0); ALBUMIN/GLOBULIN RATIO 0.7 (1.1-1.5); ALKALINE PHOSPHATASE 82 IU/L (46-116); ANION GAP 12 (8-16); ASPARTATE AMINO TRANSFERASE 11 U/L (10-37); BILIRUBIN,TOTAL 0.3 MG/DL (0.1-1.0); BLOOD UREA NITROGEN 12 MG/DL (7-18); BUN/CREATININE RATIO 16.9 (10.0-20.0); CALCIUM 8.1 MG/DL (8.5-10.1); CHLORIDE 106 MMOL/L (99-107); CREATININE 0.71 MG/DL (0.40-0.90); GLUCOSE 240 MG/DL (70-104); PHOSPHORUS 2.3 MG/DL (2.3-4.5); POTASSIUM 3.6 MMOL/L (3.5-5.1); SODIUM 138 MMOL/L (135-145); TOTAL CARBON DIOXIDE 20.3 MMOL/L (24-32); TOTAL PROTEIN 6.6 G/DL (6.4-8.2); eGFR 81 ML/MIN
[2022-07-24 22:11] LABS: ALANINE AMINOTRANSFERASE 14 U/L (12-78); ALBUMIN 2.9 G/DL (3.4-5.0); ALBUMIN/GLOBULIN RATIO 0.8 (1.1-1.5); ALKALINE PHOSPHATASE 84 IU/L (46-116); ANION GAP 10 (8-16); ASPARTATE AMINO TRANSFERASE 10 U/L (10-37); BILIRUBIN,TOTAL 0.3 MG/DL (0.1-1.0); BLOOD UREA NITROGEN 12 MG/DL (7-18); BUN/CREATININE RATIO 16.4 (10.0-20.0); CALCIUM 8.3 MG/DL (8.5-10.1); CHLORIDE 106 MMOL/L (99-107); CREATININE 0.73 MG/DL (0.40-0.90); GLUCOSE 204 MG/DL (70-104); POTASSIUM 3.4 MMOL/L (3.5-5.1); SODIUM 138 MMOL/L (135-145); TOTAL CARBON DIOXIDE 22.2 MMOL/L (24-32); TOTAL PROTEIN 6.7 G/DL (6.4-8.2); eGFR 79 ML/MIN
[2022-07-25 00:34] LABS: ALANINE AMINOTRANSFERASE 14 U/L (12-78); ALBUMIN 2.7 G/DL (3.4-5.0); ALBUMIN/GLOBULIN RATIO 0.7 (1.1-1.5); ALKALINE PHOSPHATASE 80 IU/L (46-116); ANION GAP 9 (8-16); ASPARTATE AMINO TRANSFERASE 9 U/L (10-37); BILIRUBIN,TOTAL 0.3 MG/DL (0.1-1.0); BLOOD UREA NITROGEN 10 MG/DL (7-18); BUN/CREATININE RATIO 15.9 (10.0-20.0); CALCIUM 8.2 MG/DL (8.5-10.1); CHLORIDE 107 MMOL/L (99-107); CREATININE 0.63 MG/DL (0.40-0.90); GLUCOSE 123 MG/DL (70-104); POTASSIUM 3.3 MMOL/L (3.5-5.1); SODIUM 139 MMOL/L (135-145); TOTAL PROTEIN 6.4 G/DL (6.4-8.2); eGFR > 90 ML/MIN
--- NOTE | 2022-07-25 01:55 | NUR ---
PAGER ID: [phone] MESSAGE: Johnna Dawson ER room 6, admitted for DKA. Pt blood sugar 86, D5 1/2 NS +20K at 250 ml/hr. Insulin at 5 u/hr. Need orders for D10 + 1/2 NS . Vandana ADAM ER [id number]
--- NOTE | 2022-07-25 01:57 | NUR ---
MD orders to continue insuline but at a lower rate, starting at 1 unit/hr,
[2022-07-25 02:44] LABS: BASOPHILS % (AUTO) 0.2 % (0-1); EOSINOPHILS # (AUTO) 0.1 X10'3 (0-0.9); EOSINOPHILS % (AUTO) 0.4 % (0-6); HEMATOCRIT 35.4 % (35.0-45.0); HEMOGLOBIN 11.3 g/dl (12.0-16.0); LYMPHOCYTES % (AUTO) 15.4 % (21-51); MEAN CORPUSCULAR HEMOGLOBIN 27.5 PG (27.0-31.0); MEAN PLATELET VOLUME 9.3 FL (7.4-10.4); MONOCYTES # (AUTO) 0.9 X10'3 (0-0.9); MONOCYTES % (AUTO) 7.2 % (2-12); NEUTROPHILS # (AUTO) 9.8 X10'3 (1.8-7.7); NEUTROPHILS % (AUTO) 76.8 % (42-75); PLATELET COUNT 308 X10'3 (140-440); RED BLOOD COUNT 4.11 X10'6 (4.20-5.60); RED CELL DISTRIBUTION WIDTH 17.1 % (11.5-14.5); WHITE BLOOD COUNT 12.8 X10'3 (4.5-11.0)
[2022-07-25 03:05] LABS: ANION GAP 10 (8-16); BLOOD UREA NITROGEN 8 MG/DL (7-18); BUN/CREATININE RATIO 15.7 (10.0-20.0); CHLORIDE 106 MMOL/L (99-107); CREATININE 0.51 MG/DL (0.40-0.90); GLUCOSE 130 MG/DL (70-104); POTASSIUM 3.5 MMOL/L (3.5-5.1); SODIUM 137 MMOL/L (135-145); TOTAL CARBON DIOXIDE 20.7 MMOL/L (24-32)
[2022-07-25 03:06] LABS: ALANINE AMINOTRANSFERASE 11 U/L (12-78); ALBUMIN 2.6 G/DL (3.4-5.0); ALBUMIN/GLOBULIN RATIO 0.7 (1.1-1.5); ALKALINE PHOSPHATASE 74 IU/L (46-116); ASPARTATE AMINO TRANSFERASE 10 U/L (10-37); BILIRUBIN,TOTAL 0.3 MG/DL (0.1-1.0); CALCIUM 8.2 MG/DL (8.5-10.1); MAGNESIUM 1.4 MG/DL (1.5-2.4); TOTAL PROTEIN 6.2 G/DL (6.4-8.2); eGFR > 90 ML/MIN
[2022-07-25 03:20] LABS: LIPASE 2110 U/L (73-393)
[2022-07-25] MEDS: normal saline 1000ml 1,000 ML IV SCH ×3 (03:55→11:55)
[2022-07-25 07:25] LABS: ALANINE AMINOTRANSFERASE 13 U/L (12-78); ALBUMIN 2.4 G/DL (3.4-5.0); ALBUMIN/GLOBULIN RATIO 0.7 (1.1-1.5); ALKALINE PHOSPHATASE 70 IU/L (46-116); ANION GAP 8 (8-16); ASPARTATE AMINO TRANSFERASE 14 U/L (10-37); BILIRUBIN,TOTAL 0.3 MG/DL (0.1-1.0); BLOOD UREA NITROGEN 6 MG/DL (7-18); BUN/CREATININE RATIO 11.8 (10.0-20.0); CALCIUM 8.4 MG/DL (8.5-10.1); CHLORIDE 106 MMOL/L (99-107); CREATININE 0.51 MG/DL (0.40-0.90); GLUCOSE 201 MG/DL (70-104); POTASSIUM 3.3 MMOL/L (3.5-5.1); SODIUM 136 MMOL/L (135-145); TOTAL CARBON DIOXIDE 21.7 MMOL/L (24-32); TOTAL PROTEIN 5.8 G/DL (6.4-8.2); eGFR > 90 ML/MIN
[2022-07-25] MEDS: docusate sod 100mg capsule PO SCH (08:00)
[2022-07-25] MEDS ORDERED: isosorbide mononitrate 30mg tab.SR.24H PO SCH (08:00)
[2022-07-25] MEDS: K and/or MAG REPLACEMENT MC SCH (08:00)
--- NOTE | 2022-07-25 08:15 | NUR ---
REPORT ATTEMPTED, RN TO CALL BACK FOR REPORT.
--- NOTE | 2022-07-25 08:34 | NUR ---
REPORT GIVEN TO JAIR ROMANO, PT GOING TO ROOM 6700S
[2022-07-25 09:00] VITALS: BP 121/77
--- NOTE | 2022-07-25 09:39 | NUR ---
paged PAGER ID: [phone] MESSAGE: [phone]. Eunice. Stop DKA protocol? Anion gap: 8, Co2 21.7. Talisha Leigh [phone]
[2022-07-25 10:15] VITALS: BP 144/65
[2022-07-25] MEDS ORDERED: potassium Cl 20 mEq SR tablet PO STA (10:17)
[2022-07-25] MEDS ORDERED: pantoprazole 40mg Tablet.DR PO SCH (10:35)
[2022-07-25] MEDS ORDERED: MESSAGE TO PHARMACY PO ONE (10:55)
[2022-07-25] MEDS ORDERED: dextrose 50%-water 50ml dispensing syringe IV PRN ×2 (10:55)
[2022-07-25] MEDS ORDERED: DEXTROSE 15 GM of carb/4 tabs (each vial/BOTTLE has 4 tablets) PO PRN ×2 (10:55)
[2022-07-25] MEDS ORDERED: insulin Lispro (HumaLOG) vial - multi-dose SQ SCH (10:55)
[2022-07-25] MEDS ORDERED: glucagon, human recombinant 1mg kit SUBCUT PRN (10:55)
[2022-07-25] MEDS ORDERED: PANT40TA54 PO (11:20)
[2022-07-25] MEDS ORDERED: POTA-82 PO (11:20)
--- NOTE | 2022-07-25 13:22 | NUR ---
Paged PAGER ID: [phone] MESSAGE: [phone]. Eunice. K 4.4, BG before lunch 310, 9 units humalog given. ROWAN. d/c? Juan C Leigh [phone]
--- NOTE | 2022-07-25 13:24 | NUR ---
Recheck BG at 1400 and notify
[2022-07-25 14:00] VITALS: BP 154/63
[2022-07-25] MEDS ORDERED: insulin Lispro (HumaLOG) vial - multi-dose SQ STA (14:05)
--- NOTE | 2022-07-25 15:36 | NUR ---
Paged PAGER ID: [phone] MESSAGE: [phone]. Eunice. BG 238. ok to d/c? Juan C Leigh [phone]
--- NOTE | 2022-07-25 16:30 | NUR ---
Saline lock removed x 2 with tips intact. telemetry box removed and taken to groundwater monitoring technician. Discharge instructions given. Verbalized understanding and no questions asked. Discharge form signed and escorted out per wheelchair with daughter.
--- NOTE | 2022-07-25 17:02 | NUR ---
Orientee documentation: I have reviewed and agree with all interventions, assessments performed and documented by Misty Jay RN.
--- NOTE | 2022-07-25 17:03 | NUR ---
Orientee Medication Administration: For this medication-pass time frame, all medication were reviewed, dispensed, administered and documented per hospital policy by Misty Jay RN.
[2022-07-25] MEDS ORDERED: insulin glargine (Lantus) pen - multi-dose SQ SCH (21:00)
== END 2022-07-25 16:20 | disposition home or self-care (01) | DRG 637 ==
LOC: ER 12:48 → ED HOLD 16:18 → ORTHO 4S 07-25 08:50
PROVIDERS: ADMIT Family Medicine; ATTEND Family Medicine
DX: E11.10 Type 2 diabetes mellitus with ketoacidosis without coma (principal); K85.90 Acute pancreatitis without necrosis or infection, unspecified; I13.0 Hypertensive heart and chronic kidney disease with heart failure and stage 1 through stage 4 chronic kidney disease, or unspecified chronic kidney disease; E87.1 Hypo-osmolality and hyponatremia; Z66 Do not resuscitate; E11.22 Type 2 diabetes mellitus with diabetic chronic kidney disease; I25.10 Atherosclerotic heart disease of native coronary artery without angina pectoris; E78.5 Hyperlipidemia, unspecified; E86.0 Dehydration; E87.6 Hypokalemia; F17.210 Nicotine dependence, cigarettes, uncomplicated; R07.9 Chest pain, unspecified; K20.90 Esophagitis, unspecified without bleeding; K29.70 Gastritis, unspecified, without bleeding; I25.2 Old myocardial infarction; I50.9 Heart failure, unspecified; M06.9 Rheumatoid arthritis, unspecified; N18.9 Chronic kidney disease, unspecified; Z79.4 Long term (current) use of insulin; Z82.3 Family history of stroke; Z82.49 Family history of ischemic heart disease and other diseases of the circulatory system; Z83.3 Family history of diabetes mellitus; Z90.710 Acquired absence of both cervix and uterus; Z95.1 Presence of aortocoronary bypass graft
CPT/HCPCS: 36415; 36600; 80048; 80053; 81001; 82803; 82948; 83690; 83735; 84100; 84132; 84484; 85018; 85025; 87081; 93005; 96361; 96374; 96375; 99285; A4353; C9113; G0378; J1650; J1815; J2405; J2765; J3480; J7030

== ENCOUNTER 2022-08-06 12:09 | Emergency (ER) | payer MEDICARE, MEDICAID ==
[~2022-08-06] VITALS: Ht 157.5 cm; Wt 55.5 kg
[~2022-08-06 12:09] MED LIST changes: -ACET-1 PO; -ALEN70TA37 PO; -ASPI-1397 PO; -ATOR-2 PO; -ERGO500054 PO; +FURO40TA4 PO; +PANT40TA54 PO; +POTA-366 PO; -TICA90TA2 PO
[2022-08-06] MEDS ORDERED: normal saline 1000ML IV soln IVB ONE ×2 (12:40→13:50)
[2022-08-06 13:02] LABS: BASOPHILS % (AUTO) 0.2 % (0-1); EOSINOPHILS % (AUTO) 0 % (0-6); HEMATOCRIT 36.6 % (35.0-45.0); HEMOGLOBIN 11.5 g/dl (12.0-16.0); LYMPHOCYTES # (AUTO) 1.2 X10'3 (1.1-4.8); LYMPHOCYTES % (AUTO) 8.2 % (21-51); MEAN CORPUSCULAR HEMOGLOBIN 26.9 PG (27.0-31.0); MEAN CORPUSCULAR HGB CONC 31.3 g/dL (33.0-36.5); MEAN CORPUSCULAR VOLUME 85.9 FL (78-98); MEAN PLATELET VOLUME 8.4 FL (7.4-10.4); MONOCYTES # (AUTO) 0.5 X10'3 (0-0.9); MONOCYTES % (AUTO) 3.7 % (2-12); NEUTROPHILS % (AUTO) 87.9 % (42-75); PLATELET COUNT 438 X10'3 (140-440); RED BLOOD COUNT 4.26 X10'6 (4.20-5.60); RED CELL DISTRIBUTION WIDTH 17.2 % (11.5-14.5); WHITE BLOOD COUNT 14.8 X10'3 (4.5-11.0)
[2022-08-06 13:10] LABS: ALANINE AMINOTRANSFERASE 18 U/L (12-78); ALBUMIN 3.2 G/DL (3.4-5.0); ALBUMIN/GLOBULIN RATIO 0.8 (1.1-1.5); ALKALINE PHOSPHATASE 92 IU/L (46-116); ANION GAP 17 (8-16); ASPARTATE AMINO TRANSFERASE 8 U/L (10-37); BILIRUBIN,TOTAL 0.3 MG/DL (0.1-1.0); BLOOD UREA NITROGEN 31 MG/DL (7-18); CALCIUM 8.6 MG/DL (8.5-10.1); CHLORIDE 104 MMOL/L (99-107); CREATININE 1.29 MG/DL (0.40-0.90); GLUCOSE 376 MG/DL (70-104); POTASSIUM 3.2 MMOL/L (3.5-5.1); SODIUM 138 MMOL/L (135-145); TOTAL PROTEIN 7.3 G/DL (6.4-8.2); eGFR 41 ML/MIN
[2022-08-06 13:13] LABS: MAGNESIUM 1.8 MG/DL (1.5-2.4)
[2022-08-06 13:21] LABS: LIPASE 2957 U/L (73-393)
[2022-08-06] MEDS ORDERED: insulin regular, human 10 units/0.1 ml syringe IV ONE (13:50)
[2022-08-06 14:11] LABS: ABG BASE EXCESS -7.6 mmol/L (-2.0-2.0); ABG HCO3 16.9 mmol/L (22.0-26.0); ABG OXYGEN SATURATION 91.7 % (94-97); ABG PCO2 (T) 31.2 mmHg (32.0-45.0); ABG PO2 (T) 62.2 mmHg (75.0-100.0); ALLEN'S TEST POSITIVE; FCOHb 1.2 % (0.0-3.9); FMetHb 0.3 % (0.0-1.5); FO2Hb 90.3 % (94-97); TOTAL HEMOGLOBIN 11.8 G/dl (12.0-16.0)
--- NOTE | 2022-08-06 15:10 | NUR ---
PT REPORTS CHEST PAIN, PROVIDER WAS MADE AWARE, EKG WAS ORDERED.
[2022-08-06] MEDS ORDERED: sucralfate 1 gm tablet PO ONE (15:25)
[2022-08-06] MEDS ORDERED: mag hydrox/Alum hydrox/simeth 30ml oral suspension PO ONE (15:25)
[2022-08-06] MEDS ORDERED: LIDOcaine Viscous 15ml cup MM ONE (15:25)
[2022-08-06 16:35] LABS: CLARITY,URINE CLEAR (Clear); COLOR,URINE YELLOW (Yellow); GLUCOSE, URINE >=1000 mg/dl (Neg); KETONES,URINE 40 mg/dl (Neg); LEUKOCYTE ESTERASE ,URINE NEGATIVE (Neg); NITRITES, URINE NEGATIVE (Neg); OCCULT BLOOD,URINE SMALL (Neg); PROTEIN,URINE 30 mg/dl (Neg); UROBILINOGEN,URINE 0.2 E.U/dL (0.2-1.0)
[2022-08-06 16:37] LABS: UA COLLECTION TYPE CLN CATCH MIDSTREAM
[2022-08-06 16:38] LABS: BACTERIA,URINE FEW /HPF (Neg); HYALINE CASTS 0-3 /LPF (NEGATIVE); MUCUS STRANDS FEW /LPF (Neg); SQUAMOUS EPITHELIAL CELL,UR MODERATE /LPF (FEW); WBC,URINE 0-4 /HPF (0-4)
[2022-08-06 17:39] VITALS: BP 188/77
== END 2022-08-06 17:41 | disposition home or self-care (01) ==
LOC: ER 12:09
DX: E11.10 Type 2 diabetes mellitus with ketoacidosis without coma (principal); I13.11 Hypertensive heart and chronic kidney disease without heart failure, with stage 5 chronic kidney disease, or end stage renal disease; N18.6 End stage renal disease; Z79.899 Other long term (current) drug therapy; Z79.1 Long term (current) use of non-steroidal anti-inflammatories (NSAID); Z79.4 Long term (current) use of insulin
CPT/HCPCS: 36415; 36600; 80053; 81001; 82803; 82948; 83690; 83735; 84484; 85018; 85025; 93005; 96361; 96374; 99285; J1815; J7030

== ENCOUNTER 2022-10-23 01:45 | Inpatient (IN) | payer MEDICARE, MEDICAID ==
[~2022-10-23] VITALS: Ht 154.9 cm; Wt 61.4 kg
[~2022-10-23 01:45] MED LIST changes: -HUM7525 SQ; +INSU100I8 SQ; +PANT-47 PO; -PANT40TA54 PO
[2022-10-23] MEDS ORDERED: nitroGLYCERIN 1gm ointment UD TP ONE (02:15)
[2022-10-23] MEDS ORDERED: aspirin 81mg tab.chew PO ONE (02:15)
[2022-10-23] MEDS ORDERED: normal saline 1000ml 1,000 ML IV ONE (02:15)
[2022-10-23 02:48] LABS: BASOPHILS % (AUTO) 0.6 % (0-1); EOSINOPHILS # (AUTO) 0.1 X10'3 (0-0.9); EOSINOPHILS % (AUTO) 1.5 % (0-6); HEMATOCRIT 37.4 % (35.0-45.0); HEMOGLOBIN 12.4 g/dl (12.0-16.0); LYMPHOCYTES % (AUTO) 26.2 % (21-51); MEAN CORPUSCULAR HEMOGLOBIN 28.3 PG (27.0-31.0); MEAN CORPUSCULAR VOLUME 85.5 FL (78-98); MEAN PLATELET VOLUME 8.2 FL (7.4-10.4); MONOCYTES # (AUTO) 0.5 X10'3 (0-0.9); MONOCYTES % (AUTO) 6.2 % (2-12); NEUTROPHILS % (AUTO) 65.5 % (42-75); PLATELET COUNT 372 X10'3 (140-440); RED BLOOD COUNT 4.37 X10'6 (4.20-5.60); RED CELL DISTRIBUTION WIDTH 19.3 % (11.5-14.5); WHITE BLOOD COUNT 7.7 X10'3 (4.5-11.0)
[2022-10-23 02:59] LABS: ALANINE AMINOTRANSFERASE 23 U/L (12-78); ALBUMIN 3.1 G/DL (3.4-5.0); ALBUMIN/GLOBULIN RATIO 0.7 (1.1-1.5); ALKALINE PHOSPHATASE 114 IU/L (46-116); ANION GAP 19 (8-16); ASPARTATE AMINO TRANSFERASE 19 U/L (10-37); BILIRUBIN,TOTAL 0.4 MG/DL (0.1-1.0); BLOOD UREA NITROGEN 21 MG/DL (7-18); BUN/CREATININE RATIO 17.5 (10.0-20.0); CHLORIDE 95 MMOL/L (99-107); LIPASE 667 U/L (73-393); MAGNESIUM 1.6 MG/DL (1.5-2.4); SODIUM 134 MMOL/L (135-145); TOTAL CARBON DIOXIDE 20.1 MMOL/L (24-32); TOTAL PROTEIN 7.5 G/DL (6.4-8.2); eGFR 44 ML/MIN
[2022-10-23] MEDS ORDERED: insulin Lispro (HumaLOG) vial - multi-dose SQ ONE (03:05)
[2022-10-23 03:07] LABS: CLARITY,URINE SLIGHTLY CLOUDY (Clear); COLOR,URINE STRAW (Yellow); GLUCOSE, URINE >=1000 mg/dl (Neg); KETONES,URINE 40 mg/dl (Neg); LEUKOCYTE ESTERASE ,URINE NEGATIVE (Neg); NITRITES, URINE NEGATIVE (Neg); OCCULT BLOOD,URINE SMALL (Neg); PROTEIN,URINE TRACE mg/dl (Neg); UROBILINOGEN,URINE 0.2 E.U/dL (0.2-1.0)
[2022-10-23 03:08] LABS: GLUCOSE 486 MG/DL (70-104); POTASSIUM 2.9 MMOL/L (3.5-5.1)
[2022-10-23 03:10] LABS: CALCIUM 9.4 MG/DL (8.5-10.1)
[2022-10-23] MEDS ORDERED: POTASSIUM BICARB 20meq eff tab 20 MEQ TABLET.EFF PO SCH (03:10)
[2022-10-23 03:12] LABS: RBC,URINE 0-2 /HPF (0-2); UA COLLECTION TYPE CLN CATCH MIDSTREAM; WBC,URINE 0-4 /HPF (0-4)
[2022-10-23 03:13] LABS: BACTERIA,URINE FEW /HPF (Neg)
[2022-10-23 03:14] LABS: MUCUS STRANDS FEW /LPF (Neg); SQUAMOUS EPITHELIAL CELL,UR MODERATE /LPF (FEW)
--- NOTE | 2022-10-23 03:38 | NUR ---
Pt demanded IV be taken out and refused to have another one placed. Stating she would rather have a shot.
[2022-10-23] MEDS ORDERED: dextrose 50%-water 50ml dispensing syringe IV PRN ×4 (04:35→18:00)
[2022-10-23] MEDS ORDERED: magnesium 4gm in 100ml NS 100 ML IV PRN (04:35)
[2022-10-23] MEDS ORDERED: morphine 2 MG/ML inj. syringe IV PRN ×2 (04:35)
[2022-10-23] MEDS ORDERED: mag hydrox/Alum hydrox/simeth 30ml oral suspension PO PRN (04:35)
[2022-10-23] MEDS ORDERED: DEXTROSE 15 GM of carb/4 tabs (each vial/BOTTLE has 4 tablets) PO PRN ×4 (04:35→18:00)
[2022-10-23] MEDS ORDERED: potassium Cl 20 mEq SR tablet PO PRN ×4 (04:35→11:20)
[2022-10-23] MEDS ORDERED: normal saline 1000ml 1,000 ML IV SCH ×3 (04:35→11:05)
[2022-10-23] MEDS ORDERED: HYDROcodone/acetaminophen 10/325mg tab PO PRN (04:35)
[2022-10-23] MEDS ORDERED: glucagon, human recombinant 1mg kit SUBCUT PRN ×2 (04:35→18:00)
[2022-10-23] MEDS ORDERED: ondansetron/PF 4mg/2ml inj IV PRN (04:35)
[2022-10-23] MEDS ORDERED: magnesium hydroxide 30ml (MOM) UD suspension PO PRN (04:35)
[2022-10-23] MEDS ORDERED: MESSAGE TO PHARMACY PO ONE (04:35)
[2022-10-23] MEDS ORDERED: magnesium Cl slow-release 64mg tablet PO PRN (04:35)
[2022-10-23] MEDS ORDERED: HYDROcodone/acetaminophen 5mg/325mg tablet PO PRN (04:35)
[2022-10-23] MEDS ORDERED: insulin Lispro (HumaLOG) vial - multi-dose SQ SCH (04:35)
[2022-10-23] MEDS ORDERED: acetaminophen 325mg tablet PO PRN ×2 (04:35)
[2022-10-23] MEDS ORDERED: potassium Cl 40MEQ/1/2NS 520ml 520 ML IV PRN ×3 (04:35→11:20)
[2022-10-23] MEDS ORDERED: magnesium 2GM in 50ml NS 50 ML IV PRN (04:35)
[2022-10-23] MEDS ORDERED: aminophylline 250mg/10ml inj. IV PRN (04:55)
[2022-10-23] MEDS ORDERED: metoprolol tartrate 1mg/ml inj IV PRN (04:55)
[2022-10-23 06:03] LABS: ANISOCYTOSIS 2+; PLATELET ESTIMATE NORMAL
[2022-10-23 06:06] LABS: MICROCYTOSIS FEW
[2022-10-23] MEDS ORDERED: regadenoson 0.4mg/5ml syringe IV PRN (08:00)
[2022-10-23] MEDS: docusate sod 100mg capsule PO SCH ×2 (08:00→20:15)
[2022-10-23] MEDS: nicotine 14mg patch - 24hr TD SCH (08:00)
[2022-10-23] MEDS ORDERED: potassium Cl 20 mEq SR tablet PO STA (08:05)
[2022-10-23 08:07] VITALS: BP 167/76; PULSE 71; RESP 16; TEMP 98.8; O2SAT 94
[2022-10-23 09:00] VITALS: RESP 18
[2022-10-23] MEDS: pantoprazole 40mg Tablet.DR PO SCH ×2 (09:48→20:15)
[2022-10-23 09:54] VITALS: BP 169/72; PULSE 72; RESP 14; TEMP 98.2; O2SAT 97
--- NOTE | 2022-10-23 10:40 | NUR ---
PT C/O CXT PAIN. RESIDENT DR. CHAHAL NOTIFIED. TROPS X2, NITRO S/L AND EKG TO BE DONE.
[2022-10-23] MEDS: nitroGLYCERIN 0.4mg SUBLingual tab SL PRN ×2 (10:46→11:06)
[2022-10-23 11:06] LABS: ANION GAP 19 (8-16); BLOOD UREA NITROGEN 16 MG/DL (7-18); BUN/CREATININE RATIO 23.2 (10.0-20.0); CALCIUM 8.8 MG/DL (8.5-10.1); CHLORIDE 93 MMOL/L (99-107); CREATININE 0.69 MG/DL (0.40-0.90); POTASSIUM 3.9 MMOL/L (3.5-5.1); SODIUM 131 MMOL/L (135-145); TOTAL CARBON DIOXIDE 18.9 MMOL/L (24-32); eGFR 84 ML/MIN
[2022-10-23 11:07] LABS: GLUCOSE 467 MG/DL (70-104)
[2022-10-23] MEDS ORDERED: LANTUS SQ (11:14)
[2022-10-23] MEDS ORDERED: insulin regular, human U-100 3ml vial - multi-dose IV PRN (11:20)
[2022-10-23] MEDS ORDERED: Neutra Phos packet PO PRN (11:20)
[2022-10-23] MEDS ORDERED: sodium bicarbonate (8.4%) inj. 50 MEQ in dextrose 5% water 500ml 250 ML IV PRN (11:20)
[2022-10-23] MEDS ORDERED: potassium CL 20mEq in D5-1/2NS 1,000 ML IV PRN (11:20)
[2022-10-23] MEDS ORDERED: sodium bicarbonate (8.4%) inj. 100 MEQ in dextrose 5% water 500ml 500 ML IV PRN (11:20)
[2022-10-23] MEDS ORDERED: Insulin Reg/NS 100units/100mL 100 ML IV SCH (11:20)
[2022-10-23] MEDS ORDERED: sodium phosphate inj. 15 MMOL in dextrose 5%-water 250 ML IV PRN (11:20)
[2022-10-23] MEDS ORDERED: sodium phosphate inj. 30 MMOL in dextrose 5%-water 250 ML IV PRN (11:20)
[2022-10-23] MEDS: normal saline 1000ml 1,000 ML IV SCH ×4 (11:20→23:20)
--- NOTE | 2022-10-23 11:55 | NUR ---
Message: [facility] tele [phone] re: [id number] Eunice Patient is requesting ice chips at this time, you said strict NPO just wanted to clearify. Thanks Hima. Addendum: 10/23/22 at 1221 by Jeevan Tuttle RN responded and gave the okay for ice chips
[2022-10-23] MEDS ORDERED: ACET-1 PO (12:15)
[2022-10-23 12:54] LABS: ALBUMIN 2.8 G/DL (3.4-5.0); ANION GAP 22 (8-16); BLOOD UREA NITROGEN 17 MG/DL (7-18); BUN/CREATININE RATIO 23.3 (10.0-20.0); CALCIUM 8.5 MG/DL (8.5-10.1); CHLORIDE 93 MMOL/L (99-107); CREATININE 0.73 MG/DL (0.40-0.90); POTASSIUM 4.4 MMOL/L (3.5-5.1); SODIUM 130 MMOL/L (135-145); TOTAL CARBON DIOXIDE 15.5 MMOL/L (24-32); eGFR 79 ML/MIN
[2022-10-23 12:59] LABS: GLUCOSE 563 MG/DL (70-104)
--- NOTE | 2022-10-23 14:14 | NUR ---
Nutrition Consult: Pt admit DX DKA hx insulin-dependent T2DM, rule out ACS, CP, hypokalemia, CKD, pancreatitis, and HTN per EMR. Pt hx frequent DKA currently 4th episode this month and third episode this past week. Pt seen by LENNY for DM ed 10/17 and has had multiple educations in past. RD reported to RN pt hx reliant on granddaughter for all meds including insulin management; per RN pt daughter confirms. Unsure of accuracy given frequency of pt DKA visits; RN to place social and political studies professor consult given hx APS report recent 08/19/22 admit. Pt PO 50% first heart healthy/carb controlled meal WB but now NPO w/ ice chips on insulin drip per EMR. Glu down to 391mg/dl from 563mg/dl today. Will monitor for further nutrition intervention needs. Rec: 1. advance diet as medically indicated to carb controlled; heart healthy not indicated given low serum Na LOS 2. monitor for PO trends w/ diet advancement and ONS needs 3. bowel care per rx 4. scaled wt this admit; subsequent weekly wt Addendum: 10/23/22 at [address] Amended: Links added.
--- NOTE | 2022-10-23 14:45 | NUR ---
Message: [facility] tele [phone] Re: Raymundo Dawson Patient BG is currently 268, K is 4.4 and the only protocol fluid to change to d5 1/2NS with 20k, did you also like me to decrease the drip from 5 to 3
[2022-10-23 14:47] LABS: ALBUMIN 2.7 G/DL (3.4-5.0); ANION GAP 21 (8-16); BLOOD UREA NITROGEN 15 MG/DL (7-18); CALCIUM 8.4 MG/DL (8.5-10.1); CHLORIDE 98 MMOL/L (99-107); CREATININE 1.07 MG/DL (0.40-0.90); GLUCOSE 301 MG/DL (70-104); MAGNESIUM 1.4 MG/DL (1.5-2.4); PHOSPHORUS 2.5 MG/DL (2.3-4.5); POTASSIUM 3.4 MMOL/L (3.5-5.1); SODIUM 134 MMOL/L (135-145); eGFR 51 ML/MIN
[2022-10-23 14:49] LABS: TOTAL CARBON DIOXIDE 14.9 MMOL/L (24-32)
[2022-10-23 15:00] VITALS: BP 125/62; PULSE 79; RESP 20; TEMP 99.3; O2SAT 97
--- NOTE | 2022-10-23 15:01 | NUR ---
Dropped patient insulin drip from 5 to 3 at this time to slow the rate at which her bg is normalizing. Still waiting on protocol iv bag at this time.
[2022-10-23] MEDS: isosorbide mononitrate 30mg tab.SR.24H PO SCH (15:12)
[2022-10-23 17:55] LABS: ALBUMIN 2.5 G/DL (3.4-5.0); ANION GAP 11 (8-16); BLOOD UREA NITROGEN 13 MG/DL (7-18); BUN/CREATININE RATIO 17.6 (10.0-20.0); CALCIUM 8.2 MG/DL (8.5-10.1); CHLORIDE 100 MMOL/L (99-107); CREATININE 0.74 MG/DL (0.40-0.90); GLUCOSE 170 MG/DL (70-104); MAGNESIUM 1.4 MG/DL (1.5-2.4); PHOSPHORUS 2.4 MG/DL (2.3-4.5); POTASSIUM 3.6 MMOL/L (3.5-5.1); SODIUM 134 MMOL/L (135-145); TOTAL CARBON DIOXIDE 22.9 MMOL/L (24-32); eGFR 78 ML/MIN
--- NOTE | 2022-10-23 18:10 | NUR ---
Problems reprioritized. Patient report given, questions answered & plan of care reviewed with Mariya ADAM.
[2022-10-23 20:00] VITALS: RESP 14; O2SAT 94
[2022-10-23] MEDS ORDERED: enoxaparin 40mg/0.4ml syringe SQ SCH (20:00)
[2022-10-23] MEDS: K and/or MAG REPLACEMENT MC SCH (20:16)
[2022-10-23] MEDS: insulin Lispro (HumaLOG) vial - multi-dose SQ SCH (20:44)
[2022-10-23] MEDS ORDERED: insulin glargine (Lantus) pen - multi-dose SQ SCH ×2 (21:00)
[2022-10-23] MEDS ORDERED: temazepam 15mg capsule PO PRN (21:00)
[2022-10-23 22:00] VITALS: BP 100/60; PULSE 84; RESP 17; TEMP 98.8; O2SAT 97
[2022-10-24 02:00] VITALS: BP 139/69; PULSE 77; RESP 19; TEMP 97.8; O2SAT 96
[2022-10-24] MEDS: normal saline 1000ml 1,000 ML IV SCH ×4 (03:20→15:20)
--- NOTE | 2022-10-24 05:42 | NUR ---
MESSAGE: Eunice Oropeza in rm [id number] has b/s of 418. can i give insulin now. Mariya u. [phone]. okayed to give insulin now.
[2022-10-24] MEDS: insulin Lispro (HumaLOG) vial - multi-dose SQ SCH ×3 (05:48→13:49)
[2022-10-24 06:06] LABS: BASOPHILS % (AUTO) 0.4 % (0-1); EOSINOPHILS # (AUTO) 0.2 X10'3 (0-0.9); EOSINOPHILS % (AUTO) 2.6 % (0-6); HEMATOCRIT 30.7 % (35.0-45.0); HEMOGLOBIN 10.3 g/dl (12.0-16.0); LYMPHOCYTES # (AUTO) 2.6 X10'3 (1.1-4.8); LYMPHOCYTES % (AUTO) 34.5 % (21-51); MEAN CORPUSCULAR HEMOGLOBIN 28.7 PG (27.0-31.0); MEAN CORPUSCULAR HGB CONC 33.5 g/dL (33.0-36.5); MEAN CORPUSCULAR VOLUME 85.6 FL (78-98); MEAN PLATELET VOLUME 8.4 FL (7.4-10.4); MONOCYTES # (AUTO) 0.4 X10'3 (0-0.9); MONOCYTES % (AUTO) 5.6 % (2-12); NEUTROPHILS # (AUTO) 4.3 X10'3 (1.8-7.7); NEUTROPHILS % (AUTO) 56.9 % (42-75); PLATELET COUNT 297 X10'3 (140-440); RED BLOOD COUNT 3.59 X10'6 (4.20-5.60); RED CELL DISTRIBUTION WIDTH 19.7 % (11.5-14.5); WHITE BLOOD COUNT 7.5 X10'3 (4.5-11.0)
--- NOTE | 2022-10-24 06:29 | NUR ---
Problems reprioritized. Patient report given, questions answered & plan of care reviewed with Hima
[2022-10-24 06:34] LABS: ALANINE AMINOTRANSFERASE 15 U/L (12-78); ALBUMIN 2.3 G/DL (3.4-5.0); ALBUMIN/GLOBULIN RATIO 0.7 (1.1-1.5); ALKALINE PHOSPHATASE 91 IU/L (46-116); ANION GAP 8 (8-16); ASPARTATE AMINO TRANSFERASE 17 U/L (10-37); BILIRUBIN,TOTAL 0.4 MG/DL (0.1-1.0); BLOOD UREA NITROGEN 19 MG/DL (7-18); BUN/CREATININE RATIO 25.7 (10.0-20.0); CALCIUM 8.4 MG/DL (8.5-10.1); CHLORIDE 100 MMOL/L (99-107); CREATININE 0.74 MG/DL (0.40-0.90); LIPASE 312 U/L (73-393); PHOSPHORUS 3.6 MG/DL (2.3-4.5); POTASSIUM 4.5 MMOL/L (3.5-5.1); SODIUM 132 MMOL/L (135-145); TOTAL CARBON DIOXIDE 24.1 MMOL/L (24-32); TOTAL PROTEIN 5.7 G/DL (6.4-8.2); eGFR 78 ML/MIN
[2022-10-24 06:51] LABS: GLUCOSE 426 MG/DL (70-104)
[2022-10-24 07:26] VITALS: BP 168/77; PULSE 66; RESP 19; TEMP 97.8; O2SAT 93
[2022-10-24] MEDS ORDERED: atorvastatin 20mg tablet PO SCH (08:00)
[2022-10-24] MEDS: K and/or MAG REPLACEMENT MC SCH (08:00)
[2022-10-24] MEDS: nicotine 14mg patch - 24hr TD SCH (08:00)
[2022-10-24] MEDS: docusate sod 100mg capsule PO SCH (08:00)
[2022-10-24] MEDS: pantoprazole 40mg Tablet.DR PO SCH (08:14)
[2022-10-24] MEDS: isosorbide mononitrate 30mg tab.SR.24H PO SCH (08:16)
[2022-10-24 08:24] VITALS: RESP 16
[2022-10-24] MEDS ORDERED: aspirin 81mg tab.chew PO SCH (08:30)
[2022-10-24 13:18] VITALS: BP 135/73; PULSE 81; RESP 20; TEMP 97.9; O2SAT 99
[2022-10-24] MEDS ORDERED: ASPI81TA53 PO (14:44)
[2022-10-24] MEDS ORDERED: LOSA25TA41 PO (14:44)
[2022-10-24] MEDS ORDERED: ATOR20TA66 PO (14:44)
[2022-10-24] MEDS ORDERED: CARV3.12 PO (14:44)
[2022-10-24] MEDS ORDERED: EMPA10TA PO (14:44)
[2022-10-24] MEDS ORDERED: LANTUS SQ (14:44)
--- NOTE | 2022-10-24 17:44 | NUR ---
Patient discharge with family in room, this was the third discharge for same reason in last week. We went through lots of education, unsure of how much family and her will utilize. Patient IV taken out at the time of discharge and canula was whole and intact upon inspection. Patient was educated from me and psychosocial rehabilitation counselor at discharge. Patient left in private vehicle with family at discharge and she verbalized understanding.
== END 2022-10-24 16:22 | disposition home health service (06) | DRG 637 ==
LOC: ER 01:45 → ED HOLD 04:37 → PCU 3S 07:59
PROVIDERS: ADMIT Internal Medicine; ATTEND Family Medicine
DX: E11.10 Type 2 diabetes mellitus with ketoacidosis without coma (principal); K85.90 Acute pancreatitis without necrosis or infection, unspecified; I13.0 Hypertensive heart and chronic kidney disease with heart failure and stage 1 through stage 4 chronic kidney disease, or unspecified chronic kidney disease; F03.90 Unspecified dementia, unspecified severity, without behavioral disturbance, psychotic disturbance, mood disturbance, and anxiety; R07.9 Chest pain, unspecified; I16.0 Hypertensive urgency; N18.9 Chronic kidney disease, unspecified; E78.5 Hyperlipidemia, unspecified; I25.10 Atherosclerotic heart disease of native coronary artery without angina pectoris; M06.9 Rheumatoid arthritis, unspecified; M19.90 Unspecified osteoarthritis, unspecified site; F17.210 Nicotine dependence, cigarettes, uncomplicated; E11.22 Type 2 diabetes mellitus with diabetic chronic kidney disease; E87.6 Hypokalemia; I50.9 Heart failure, unspecified; Z95.1 Presence of aortocoronary bypass graft; Z79.899 Other long term (current) drug therapy; Z83.3 Family history of diabetes mellitus; Z82.49 Family history of ischemic heart disease and other diseases of the circulatory system; Z82.3 Family history of stroke; Z90.710 Acquired absence of both cervix and uterus; Z95.5 Presence of coronary angioplasty implant and graft; I25.2 Old myocardial infarction; Z87.440 Personal history of urinary (tract) infections; Z71.6 Tobacco abuse counseling
CPT/HCPCS: 36415; 71045; 76700; 80048; 80053; 81001; 82948; 83605; 83690; 83735; 83880; 84100; 84484; 85008; 85025; 87040; 87081; 92508; 92616; 93005; 93306; 97161; 97530; 97535; 99285; G0378; J1650; J1815; J3480; J7030

== ENCOUNTER 2022-11-10 14:02 | Inpatient (IN) | payer MEDICARE, MEDICAID ==
[~2022-11-10] VITALS: Ht 157.5 cm; Wt 55.5 kg
[~2022-11-10 14:02] MED LIST changes: +ACET-1 PO; +ASPI81TA53 PO; +ATOR20TA66 PO; +CARV3.12 PO; +EMPA10TA PO; -INSU100V9 SQ; +LANTUS SQ; +LOSA25TA41 PO; -NITR0.4T48 SL
[2022-11-10] MEDS ORDERED: ipratropium/albuterol 3ml nebule NEB ONE (14:40)
[2022-11-10] MEDS ORDERED: normal saline 1000ML IV soln IVB ONE (14:40)
[2022-11-10 15:10] LABS: BASOPHILS % (AUTO) 0.3 % (0-1); EOSINOPHILS # (AUTO) 0.1 X10'3 (0-0.9); EOSINOPHILS % (AUTO) 1.3 % (0-6); HEMATOCRIT 33.8 % (35.0-45.0); HEMOGLOBIN 10.9 g/dl (12.0-16.0); LYMPHOCYTES # (AUTO) 2.6 X10'3 (1.1-4.8); LYMPHOCYTES % (AUTO) 26.8 % (21-51); MEAN CORPUSCULAR HEMOGLOBIN 28.1 PG (27.0-31.0); MEAN CORPUSCULAR HGB CONC 32.2 g/dL (33.0-36.5); MEAN CORPUSCULAR VOLUME 87.2 FL (78-98); MEAN PLATELET VOLUME 7.8 FL (7.4-10.4); MONOCYTES # (AUTO) 0.7 X10'3 (0-0.9); MONOCYTES % (AUTO) 7.5 % (2-12); NEUTROPHILS # (AUTO) 6.2 X10'3 (1.8-7.7); NEUTROPHILS % (AUTO) 64.1 % (42-75); PLATELET COUNT 466 X10'3 (140-440); RED BLOOD COUNT 3.87 X10'6 (4.20-5.60); RED CELL DISTRIBUTION WIDTH 19.7 % (11.5-14.5); WHITE BLOOD COUNT 9.7 X10'3 (4.5-11.0)
[2022-11-10 15:30] LABS: ALANINE AMINOTRANSFERASE 16 U/L (12-78); ALBUMIN 2.5 G/DL (3.4-5.0); ALBUMIN/GLOBULIN RATIO 0.6 (1.1-1.5); ALKALINE PHOSPHATASE 124 IU/L (46-116); ANION GAP 11 (8-16); ASPARTATE AMINO TRANSFERASE 11 U/L (10-37); BILIRUBIN,TOTAL 0.2 MG/DL (0.1-1.0); BLOOD UREA NITROGEN 11 MG/DL (7-18); BUN/CREATININE RATIO 14.9 (10.0-20.0); CALCIUM 8.3 MG/DL (8.5-10.1); CHLORIDE 101 MMOL/L (99-107); CREATININE 0.74 MG/DL (0.40-0.90); ETHANOL < 10 MG/DL (<10); GLUCOSE 232 MG/DL (70-104); MAGNESIUM 1.5 MG/DL (1.5-2.4); PRO BRAIN NATRIURETIC PEPTIDE 3473 PG/ML (0-125); SODIUM 135 MMOL/L (135-145); TOTAL CARBON DIOXIDE 22.7 MMOL/L (24-32); TOTAL PROTEIN 6.6 G/DL (6.4-8.2); eCRCL 56 ML/MIN; eGFR 78 ML/MIN
[2022-11-10 15:31] LABS: POTASSIUM 2.7 MMOL/L (3.5-5.1)
[2022-11-10 15:37] VITALS: PULSE 74; RESP 17
[2022-11-10] MEDS ORDERED: magnesium 2GM in 50ml NS 50 ML IV ONE (15:40)
[2022-11-10] MEDS ORDERED: potassium Cl 40MEQ/1/2NS 520ml 520 ML IV ONE (15:40)
[2022-11-10 15:42] VITALS: PULSE 77; RESP 20; O2SAT 100
[2022-11-10] MEDS ORDERED: LOSA25TA41 PO (16:59)
[2022-11-10] MEDS ORDERED: EMPA10TA PO (16:59)
[2022-11-10] MEDS ORDERED: CARV3.1244 PO (16:59)
[2022-11-10] MEDS ORDERED: ASPI-1265 PO (16:59)
[2022-11-10] MEDS ORDERED: ATOR-2 PO (16:59)
[2022-11-10] MEDS ORDERED: INSU100V56 SQ (17:06)
[2022-11-10 17:20] LABS: ANISOCYTOSIS 2+; HYPOCHROMASIA 1+; PLATELET ESTIMATE INCREASED
[2022-11-10 18:22] LABS: BILIRUBIN,URINE NEGATIVE (Neg); CLARITY,URINE CLOUDY (Clear); COLOR,URINE YELLOW (Yellow); GLUCOSE, URINE >=1000 mg/dl (Neg); KETONES,URINE NEGATIVE (Neg); LEUKOCYTE ESTERASE ,URINE NEGATIVE (Neg); NITRITES, URINE POSITIVE (Neg); OCCULT BLOOD,URINE TRACE-INTACT (Neg); PH,URINE 6.5 (4.8-8.0); PROTEIN,URINE 30 mg/dl (Neg); UROBILINOGEN,URINE 0.2 E.U/dL (0.2-1.0)
[2022-11-10 18:23] LABS: UA COLLECTION TYPE CLN CATCH MIDSTREAM
[2022-11-10 18:29] LABS: MUCUS STRANDS FEW /LPF (Neg); SQUAMOUS EPITHELIAL CELL,UR MODERATE /LPF (FEW)
[2022-11-10 18:30] LABS: BACTERIA,URINE 4+ /HPF (Neg); RBC,URINE 0-2 /HPF (0-2)
[2022-11-10] MEDS ORDERED: mag hydrox/Alum hydrox/simeth 30ml oral suspension PO PRN (19:25)
[2022-11-10] MEDS ORDERED: ondansetron/PF 4mg/2ml inj IV PRN (19:25)
[2022-11-10] MEDS ORDERED: HYDROcodone/acetaminophen 10/325mg tab PO PRN (19:25)
[2022-11-10] MEDS ORDERED: albuterol 2.5 MG/3 ML nebule NEB PRN (19:25)
[2022-11-10] MEDS ORDERED: potassium Cl 20 mEq SR tablet PO PRN (19:25)
[2022-11-10] MEDS ORDERED: potassium Cl 40MEQ/1/2NS 520ml 520 ML IV PRN (19:25)
[2022-11-10] MEDS ORDERED: DEXTROSE 15 GM of carb/4 tabs (each vial/BOTTLE has 4 tablets) PO PRN ×2 (19:25)
[2022-11-10] MEDS ORDERED: HYDROcodone/acetaminophen 5mg/325mg tablet PO PRN (19:25)
[2022-11-10] MEDS ORDERED: ipratropium/albuterol 3ml nebule NEB PRN (19:25)
[2022-11-10] MEDS ORDERED: glucagon, human recombinant 1mg kit SUBCUT PRN (19:25)
[2022-11-10] MEDS ORDERED: dextrose 50%-water 50ml dispensing syringe IV PRN ×2 (19:25)
[2022-11-10] MEDS ORDERED: acetaminophen 325mg tablet PO PRN ×2 (19:25)
[2022-11-10] MEDS ORDERED: magnesium 4gm in 100ml NS 100 ML IV PRN (19:25)
[2022-11-10] MEDS ORDERED: MESSAGE TO PHARMACY PO ONE (19:25)
[2022-11-10] MEDS ORDERED: acetaminophen w/codeine (30MG) #3 tablet PO PRN (19:50)
[2022-11-10] MEDS: docusate sod 100mg capsule PO SCH (20:00)
[2022-11-10] MEDS: K and/or MAG REPLACEMENT MC SCH (20:00)
[2022-11-10] MEDS: carVEDilol 3.125mg tablet PO SCH (20:42)
[2022-11-10] MEDS: normal saline 1000ml 1,000 ML IV SCH (20:43)
[2022-11-10] MEDS: ciprofloxacin/D5W 200mg/100mL 100 ML IV SCH (20:43)
[2022-11-10] MEDS: enoxaparin 40mg/0.4ml syringe SQ SCH (20:43)
--- NOTE | 2022-11-10 22:00 | NUR ---
PATIENT PLACED ON A HOSPITAL BED
[2022-11-10] MEDS: insulin glargine (Lantus) pen - multi-dose SQ SCH (22:44)
--- NOTE | 2022-11-10 23:56 | NUR ---
PATIENT IN BED APPEARS TO BE RESTING COMFORTABLY NO NEEDS AT THIS TIMNE
[2022-11-11] MEDS: normal saline 1000ml 1,000 ML IV SCH ×2 (05:37→15:25)
[2022-11-11] MEDS: K and/or MAG REPLACEMENT MC SCH ×2 (08:00→20:33)
[2022-11-11 08:37] LABS: BASOPHILS % (AUTO) 0.4 % (0-1); EOSINOPHILS # (AUTO) 0.2 X10'3 (0-0.9); EOSINOPHILS % (AUTO) 2.2 % (0-6); HEMATOCRIT 32.6 % (35.0-45.0); HEMOGLOBIN 10.6 g/dl (12.0-16.0); LYMPHOCYTES # (AUTO) 2.4 X10'3 (1.1-4.8); LYMPHOCYTES % (AUTO) 31.1 % (21-51); MEAN CORPUSCULAR HEMOGLOBIN 28.1 PG (27.0-31.0); MEAN CORPUSCULAR HGB CONC 32.5 g/dL (33.0-36.5); MEAN CORPUSCULAR VOLUME 86.5 FL (78-98); MEAN PLATELET VOLUME 7.8 FL (7.4-10.4); MONOCYTES # (AUTO) 0.6 X10'3 (0-0.9); MONOCYTES % (AUTO) 8.3 % (2-12); NEUTROPHILS # (AUTO) 4.4 X10'3 (1.8-7.7); PLATELET COUNT 420 X10'3 (140-440); RED BLOOD COUNT 3.77 X10'6 (4.20-5.60); RED CELL DISTRIBUTION WIDTH 19.5 % (11.5-14.5); WHITE BLOOD COUNT 7.7 X10'3 (4.5-11.0)
[2022-11-11 09:11] LABS: ALANINE AMINOTRANSFERASE 14 U/L (12-78); ALBUMIN 2.3 G/DL (3.4-5.0); ALBUMIN/GLOBULIN RATIO 0.6 (1.1-1.5); ALKALINE PHOSPHATASE 114 IU/L (46-116); ANION GAP 6 (8-16); ASPARTATE AMINO TRANSFERASE 13 U/L (10-37); BILIRUBIN,TOTAL 0.4 MG/DL (0.1-1.0); BLOOD UREA NITROGEN 6 MG/DL (7-18); BUN/CREATININE RATIO 13.6 (10.0-20.0); CALCIUM 8.5 MG/DL (8.5-10.1); CHLORIDE 105 MMOL/L (99-107); CREATININE 0.44 MG/DL (0.40-0.90); GLUCOSE 120 MG/DL (70-104); MAGNESIUM 1.9 MG/DL (1.5-2.4); POTASSIUM 3.1 MMOL/L (3.5-5.1); SODIUM 139 MMOL/L (135-145); TOTAL PROTEIN 6.3 G/DL (6.4-8.2); eCRCL 94 ML/MIN; eGFR > 90 ML/MIN
[2022-11-11] MEDS: aspirin 81mg tab.chew PO SCH (09:28)
[2022-11-11] MEDS: EMPAGLIFLOZIN 10 MG TABLET PO SCH (09:28)
[2022-11-11] MEDS: atorvastatin 20mg tablet PO SCH (09:29)
[2022-11-11] MEDS: docusate sod 100mg capsule PO SCH ×2 (09:29→20:00)
[2022-11-11] MEDS: losartan 25mg tablet PO SCH (09:29)
[2022-11-11] MEDS: carVEDilol 3.125mg tablet PO SCH ×2 (09:29→20:20)
[2022-11-11] MEDS: isosorbide mononitrate 30mg tab.SR.24H PO SCH (09:29)
[2022-11-11] MEDS: ciprofloxacin/D5W 200mg/100mL 100 ML IV SCH ×3 (09:30→20:26)
[2022-11-11] MEDS: potassium Cl 20 mEq SR tablet PO PRN ×2 (09:34→16:25)
--- NOTE | 2022-11-11 09:35 | NUR ---
PATIENT REFUSING IV START AT THIS TIME AND STATES SHE IS GOING HOME AND WAITING FOR HER DAUGHTER TO PICK HER UP, JAIR TURNER MADE AWARE, PAGE SENT TO HOSPITALIST.
--- NOTE | 2022-11-11 11:20 | NUR ---
Pt agreed to have IV placed as encouraging pt that UTI will resolve if we continue ABX tx.
--- NOTE | 2022-11-11 11:40 | NUR ---
Received report from ED RN, Avril
--- NOTE | 2022-11-11 11:50 | NUR ---
Report given to nurse Bautista, pt assigned room 9152z
[2022-11-11 12:00] VITALS: BP 128/92; PULSE 79; RESP 18; TEMP 97.4; O2SAT 98
[2022-11-11 12:15] VITALS: RESP 18; O2SAT 98
--- NOTE | 2022-11-11 13:47 | NUR ---
DM consult: Per EMR pt with T2DM, most recent A1c >12.0% 11/03 which remains unchanged since 08/18 per EMR. Pt most recently seen by RD 10/17 for DM education and has had multiple visits with RD at bedside for DM education with and without family present as pt frequently admitted with DKA and poorly controlled DM. No further education planned at this time though will remain available should pt have questions. Pt admit for sepsis secondary to UTI. Currently on a heart healthy CHO controlled diet, pending documentation of PO intake. No documented BM however pt just admitted to the floor. Pt receiving routine bowel care. Will continue to follow closely and make recommendations as appropriate pending trends in PO intake. Recommendations: 1) Continue heart healthy CHO controlled diet 2) Monitor need for ONS/additional protein 3) Routine bowel care 4) Scaled weight this admit; subsequent weekly scaled weights Addendum: 11/11/22 at [address] Amended: Links added.
[2022-11-11] MEDS: insulin Lispro (HumaLOG) vial - multi-dose SQ SCH ×3 (14:14→22:03)
[2022-11-11] MEDS ORDERED: CefTRIAXone/D5W-Rocephin 1gm 50 ML IV SCH (15:45)
[2022-11-11 16:28] VITALS: PULSE 68; RESP 16; O2SAT 97
[2022-11-11 18:00] VITALS: BP 159/79; PULSE 81; RESP 16; TEMP 98.4; O2SAT 97
[2022-11-11 20:00] VITALS: RESP 18; O2SAT 97
[2022-11-11] MEDS: enoxaparin 40mg/0.4ml syringe SQ SCH (20:21)
[2022-11-11 22:00] VITALS: BP 163/74; PULSE 79; RESP 16; TEMP 98; O2SAT 98
[2022-11-11] MEDS: insulin glargine (Lantus) pen - multi-dose SQ SCH (22:05)
[2022-11-12] VITALS (8 sets, daily range): BP systolic 150–169; BP diastolic 68–76; PULSE 62–80; RESP 16–18; TEMP 97.5–98.6; O2SAT 94–98
[2022-11-12] MEDS: normal saline 1000ml 1,000 ML IV SCH ×3 (03:32→19:58)
[2022-11-12 06:32] LABS: BASOPHILS % (AUTO) 0.4 % (0-1); EOSINOPHILS # (AUTO) 0.2 X10'3 (0-0.9); EOSINOPHILS % (AUTO) 2.5 % (0-6); HEMATOCRIT 29.7 % (35.0-45.0); HEMOGLOBIN 9.8 g/dl (12.0-16.0); LYMPHOCYTES # (AUTO) 2.5 X10'3 (1.1-4.8); LYMPHOCYTES % (AUTO) 34.3 % (21-51); MEAN CORPUSCULAR HEMOGLOBIN 28.6 PG (27.0-31.0); MEAN CORPUSCULAR HGB CONC 33.2 g/dL (33.0-36.5); MEAN CORPUSCULAR VOLUME 86.2 FL (78-98); MEAN PLATELET VOLUME 8.3 FL (7.4-10.4); MONOCYTES # (AUTO) 0.6 X10'3 (0-0.9); MONOCYTES % (AUTO) 7.8 % (2-12); PLATELET COUNT 381 X10'3 (140-440); RED BLOOD COUNT 3.44 X10'6 (4.20-5.60); RED CELL DISTRIBUTION WIDTH 19.2 % (11.5-14.5); WHITE BLOOD COUNT 7.2 X10'3 (4.5-11.0)
--- NOTE | 2022-11-12 06:38 | NUR ---
Patient in room [facility]. I have received report from Jenniffer ADAM and had the opportunity to ask questions and assume patient care.
--- NOTE | 2022-11-12 06:41 | NUR ---
Problems reprioritized. Patient report given, questions answered & plan of care reviewed with Hima Tuttle RN.
[2022-11-12 06:48] LABS: ALANINE AMINOTRANSFERASE 13 U/L (12-78); ALBUMIN 2.2 G/DL (3.4-5.0); ALBUMIN/GLOBULIN RATIO 0.6 (1.1-1.5); ALKALINE PHOSPHATASE 113 IU/L (46-116); ANION GAP 5 (8-16); ASPARTATE AMINO TRANSFERASE 12 U/L (10-37); BILIRUBIN,TOTAL 0.3 MG/DL (0.1-1.0); BLOOD UREA NITROGEN 10 MG/DL (7-18); BUN/CREATININE RATIO 16.4 (10.0-20.0); CALCIUM 8.4 MG/DL (8.5-10.1); CHLORIDE 107 MMOL/L (99-107); CREATININE 0.61 MG/DL (0.40-0.90); GLUCOSE 118 MG/DL (70-104); MAGNESIUM 1.7 MG/DL (1.5-2.4); POTASSIUM 3.6 MMOL/L (3.5-5.1); SODIUM 140 MMOL/L (135-145); TOTAL CARBON DIOXIDE 27.7 MMOL/L (24-32); eCRCL 68 ML/MIN; eGFR > 90 ML/MIN
[2022-11-12] MEDS: K and/or MAG REPLACEMENT MC SCH ×2 (08:00→20:01)
[2022-11-12] MEDS: isosorbide mononitrate 30mg tab.SR.24H PO SCH (08:28)
[2022-11-12] MEDS: docusate sod 100mg capsule PO SCH ×2 (08:28→20:00)
[2022-11-12] MEDS: aspirin 81mg tab.chew PO SCH (08:29)
[2022-11-12] MEDS: atorvastatin 20mg tablet PO SCH (08:29)
[2022-11-12] MEDS: carVEDilol 3.125mg tablet PO SCH ×2 (08:29→19:55)
[2022-11-12] MEDS: losartan 25mg tablet PO SCH (08:30)
[2022-11-12] MEDS: EMPAGLIFLOZIN 10 MG TABLET PO SCH (08:30)
[2022-11-12] MEDS: ciprofloxacin/D5W 200mg/100mL 100 ML IV SCH ×2 (08:31→19:56)
[2022-11-12] MEDS: insulin Lispro (HumaLOG) vial - multi-dose SQ SCH ×3 (09:14→21:54)
--- NOTE | 2022-11-12 18:27 | NUR ---
Problems reprioritized. Patient report given, questions answered & plan of care reviewed with Prudence RN.
--- NOTE | 2022-11-12 19:26 | NUR ---
Patient in room [facility]22. I have received report from ZACH ADAM and had the opportunity to ask questions and assume patient care.
[2022-11-12] MEDS: enoxaparin 40mg/0.4ml syringe SQ SCH (19:55)
[2022-11-12] MEDS: insulin glargine (Lantus) pen - multi-dose SQ SCH (21:52)
[2022-11-13] MEDS: normal saline 1000ml 1,000 ML IV SCH (04:51)
[2022-11-13 06:05] LABS: ALANINE AMINOTRANSFERASE 14 U/L (12-78); ALBUMIN 2.3 G/DL (3.4-5.0); ALBUMIN/GLOBULIN RATIO 0.6 (1.1-1.5); ALKALINE PHOSPHATASE 110 IU/L (46-116); ANION GAP 7 (8-16); ASPARTATE AMINO TRANSFERASE 11 U/L (10-37); BILIRUBIN,TOTAL 0.2 MG/DL (0.1-1.0); BLOOD UREA NITROGEN 15 MG/DL (7-18); BUN/CREATININE RATIO 25.4 (10.0-20.0); CALCIUM 8.5 MG/DL (8.5-10.1); CHLORIDE 105 MMOL/L (99-107); CREATININE 0.59 MG/DL (0.40-0.90); GLUCOSE 122 MG/DL (70-104); MAGNESIUM 1.8 MG/DL (1.5-2.4); POTASSIUM 3.6 MMOL/L (3.5-5.1); SODIUM 140 MMOL/L (135-145); TOTAL CARBON DIOXIDE 28.1 MMOL/L (24-32); TOTAL PROTEIN 6.3 G/DL (6.4-8.2); eCRCL 70 ML/MIN; eGFR > 90 ML/MIN
[2022-11-13 06:24] LABS: BASOPHILS % (AUTO) 0.4 % (0-1); EOSINOPHILS # (AUTO) 0.2 X10'3 (0-0.9); EOSINOPHILS % (AUTO) 2.1 % (0-6); HEMATOCRIT 31.4 % (35.0-45.0); HEMOGLOBIN 10.5 g/dl (12.0-16.0); LYMPHOCYTES # (AUTO) 2.7 X10'3 (1.1-4.8); LYMPHOCYTES % (AUTO) 32.2 % (21-51); MEAN CORPUSCULAR HEMOGLOBIN 28.7 PG (27.0-31.0); MEAN CORPUSCULAR HGB CONC 33.3 g/dL (33.0-36.5); MEAN PLATELET VOLUME 8.4 FL (7.4-10.4); MONOCYTES # (AUTO) 0.6 X10'3 (0-0.9); MONOCYTES % (AUTO) 7.1 % (2-12); NEUTROPHILS # (AUTO) 4.8 X10'3 (1.8-7.7); NEUTROPHILS % (AUTO) 58.2 % (42-75); PLATELET COUNT 428 X10'3 (140-440); RED BLOOD COUNT 3.66 X10'6 (4.20-5.60); RED CELL DISTRIBUTION WIDTH 18.8 % (11.5-14.5); WHITE BLOOD COUNT 8.3 X10'3 (4.5-11.0)
--- NOTE | 2022-11-13 06:25 | NUR ---
Problems reprioritized. Patient report given, questions answered & plan of care reviewed with ZACH RN.
[2022-11-13 06:51] VITALS: BP 171/67; PULSE 74; RESP 14; TEMP 98.2; O2SAT 94
--- NOTE | 2022-11-13 07:16 | NUR ---
Patient in room [facility] 4022. I have received report from Penny ADAM and had the opportunity to ask questions and assume patient care.
[2022-11-13 07:26] LABS: ANISOCYTOSIS 2+; HYPOCHROMASIA 1+; PLATELET ESTIMATE NORMAL; POLYCHROMASIA FEW
[2022-11-13 08:00] VITALS: RESP 18
[2022-11-13] MEDS: K and/or MAG REPLACEMENT MC SCH (08:00)
[2022-11-13] MEDS: atorvastatin 20mg tablet PO SCH (08:05)
[2022-11-13] MEDS: docusate sod 100mg capsule PO SCH (08:05)
[2022-11-13] MEDS: losartan 25mg tablet PO SCH (08:06)
[2022-11-13] MEDS: EMPAGLIFLOZIN 10 MG TABLET PO SCH (08:06)
[2022-11-13] MEDS: isosorbide mononitrate 30mg tab.SR.24H PO SCH (08:06)
[2022-11-13] MEDS: carVEDilol 3.125mg tablet PO SCH (08:06)
[2022-11-13] MEDS: aspirin 81mg tab.chew PO SCH (08:06)
[2022-11-13] MEDS: ciprofloxacin/D5W 200mg/100mL 100 ML IV SCH (08:07)
[2022-11-13] MEDS: insulin Lispro (HumaLOG) vial - multi-dose SQ SCH ×2 (09:40→13:30)
--- NOTE | 2022-11-13 10:45 | NUR ---
Reassessment: Pt continues on heart healthy CHO controlled diet and eating well, documented with average 90% PO intake meeting estimated nutrient needs. LBM 11/11 per EMR, receiving routine bowel care. No nutrition intervention implemented at this time. Will continue to follow and make recommendations as appropriate. Recommendations: 1) Continue heart healthy CHO controlled diet 2) Monitor need for ONS/additional protein 3) Routine bowel care 4) Scaled weight this admit; subsequent weekly scaled weights Addendum: 11/13/22 at [address] Amended: Links added.
[2022-11-13 11:29] VITALS: BP 131/76; PULSE 88; RESP 16; TEMP 97.8; O2SAT 96
[2022-11-13] MEDS ORDERED: CIPR-202 PO (13:43)
--- NOTE | 2022-11-13 16:29 | NUR ---
Patient discharged home with all belongings at discharge patient was educated on new medications at discharge. Patient verbally expressed understanding of teaching upon discharge. Patient left with all belongings at discharge and was transported home via private vehicle.
== END 2022-11-13 15:45 | disposition home health service (06) | DRG 871 ==
LOC: ER 14:03 → ED HOLD 19:33 → ORTHO 4S 11-11 12:00
PROVIDERS: ADMIT Family Medicine; ATTEND Family Medicine
DX: A41.9 Sepsis, unspecified organism (principal); G93.41 Metabolic encephalopathy; N39.0 Urinary tract infection, site not specified; I13.0 Hypertensive heart and chronic kidney disease with heart failure and stage 1 through stage 4 chronic kidney disease, or unspecified chronic kidney disease; Z66 Do not resuscitate; E11.22 Type 2 diabetes mellitus with diabetic chronic kidney disease; E78.5 Hyperlipidemia, unspecified; E87.6 Hypokalemia; E11.65 Type 2 diabetes mellitus with hyperglycemia; F03.90 Unspecified dementia, unspecified severity, without behavioral disturbance, psychotic disturbance, mood disturbance, and anxiety; F17.210 Nicotine dependence, cigarettes, uncomplicated; I25.10 Atherosclerotic heart disease of native coronary artery without angina pectoris; I50.9 Heart failure, unspecified; M06.9 Rheumatoid arthritis, unspecified; N18.9 Chronic kidney disease, unspecified; I25.2 Old myocardial infarction; Z79.4 Long term (current) use of insulin; Z79.84 Long term (current) use of oral hypoglycemic drugs; Z82.3 Family history of stroke; Z82.49 Family history of ischemic heart disease and other diseases of the circulatory system; Z83.3 Family history of diabetes mellitus; Z90.710 Acquired absence of both cervix and uterus; Z95.1 Presence of aortocoronary bypass graft; Z91.148 Patient's other noncompliance with medication regimen for other reason; Z88.8 Allergy status to other drugs, medicaments and biological substances; Z79.899 Other long term (current) drug therapy; Z79.82 Long term (current) use of aspirin; Z71.6 Tobacco abuse counseling
CPT/HCPCS: 36415; 71045; 80053; 80320; 81001; 82948; 83605; 83735; 83880; 84484; 85008; 85025; 87040; 87077; 87081; 87088; 87186; 93005; 94640; 94760; 96365; 99285; G0378; J0696; J0744; J1650; J1815; J3475; J3480; J7030

== ENCOUNTER 2022-11-17 23:11 | Emergency (ER) | payer MEDICARE, MEDICAID ==
[~2022-11-17] VITALS: Ht 157.5 cm; Wt 59.2 kg
[~2022-11-17 23:11] MED LIST changes: +ASPI-1265 PO; -ASPI81TA53 PO; +ATOR-2 PO; -ATOR20TA66 PO; -CARV3.12 PO; +CARV3.1244 PO; +CIPR-202 PO; +INSU100V56 SQ; -LANTUS SQ; -PANT-47 PO; -POTA-366 PO
[2022-11-17 23:16] VITALS: BP 116/80; PULSE 93; RESP 18; TEMP 98.8; O2SAT 95
== END 2022-11-18 01:08 | disposition left against medical advice (07) ==
LOC: ER 23:12
DX: M54.2 Cervicalgia (principal); Z53.21 Procedure and treatment not carried out due to patient leaving prior to being seen by health care provider
CPT/HCPCS: 99281

== ENCOUNTER 2022-11-19 23:04 | Emergency (ER) | payer MEDICARE, MEDICAID | END 2022-11-20 00:56 | disposition left against medical advice (07) | LOC: ER 23:05 | DX: M54.2 Cervicalgia (principal); Z53.21 Procedure and treatment not carried out due to patient leaving prior to being seen by health care provider ==

== ENCOUNTER 2022-12-09 00:22 | Emergency (ER) | payer MEDICARE, MEDICAID ==
[~2022-12-09 00:22] MED LIST changes: -ACET-1 PO; -CIPR-202 PO; -INSU100V56 SQ; +LANTUS SQ; +POTA-366 PO
== END 2022-12-09 02:24 | disposition left against medical advice (07) ==
LOC: ER 00:23
DX: R07.89 Other chest pain (principal); Z53.21 Procedure and treatment not carried out due to patient leaving prior to being seen by health care provider

== ENCOUNTER 2022-12-11 20:40 | Emergency (ER) | payer MEDICARE, MEDICAID ==
[~2022-12-11] VITALS: Ht 154.9 cm; Wt 59.2 kg
[2022-12-11 20:43] VITALS: BP 151/86; PULSE 88; RESP 18; TEMP 98.6; O2SAT 99
== END 2022-12-11 22:49 | disposition left against medical advice (07) ==
LOC: ER 20:40
DX: M25.512 Pain in left shoulder (principal); Z53.21 Procedure and treatment not carried out due to patient leaving prior to being seen by health care provider
CPT/HCPCS: 99281

== ENCOUNTER 2023-11-28 08:05 | Inpatient (IN) | payer MEDICARE, MEDICAID ==
[2023-11-28] VITALS (18 sets, daily range): BP systolic 80–145; BP diastolic 44–64; PULSE 89–114; RESP 12–24; O2SAT 95–100
[~2023-11-28] VITALS: Ht 157.5 cm; Wt 62.9 kg
[~2023-11-28 08:05] MED LIST changes: -ASPI-1265 PO; -ATOR-2 PO; +ATOR20TA66 PO; +CARV3.122 PO; -CARV3.1244 PO; -EMPA10TA PO; +FA/M1TAB PO; -FURO40TA4 PO; -ISOS60TA71 PO; -LOSA25TA41 PO; -POTA-366 PO; +SPIR25TA PO
[2023-11-28] MEDS: normal saline 1000ML IV soln IV ONE (09:01)
[2023-11-28 09:44] LABS: BASOPHILS # (AUTO) 0.2 X10'3 (0-0.2); BASOPHILS % (AUTO) 0.9 % (0-1); EOSINOPHILS # (AUTO) 0.1 X10'3 (0-0.9); EOSINOPHILS % (AUTO) 0.5 % (0-6); LYMPHOCYTES % (AUTO) 22.6 % (21-51); MEAN PLATELET VOLUME 9.3 FL (7.4-10.4); MONOCYTES # (AUTO) 0.8 X10'3 (0-0.9); MONOCYTES % (AUTO) 4.7 % (2-12); NEUTROPHILS # (AUTO) 12.6 X10'3 (1.8-7.7); NEUTROPHILS % (AUTO) 71.3 % (42-75); PLATELET COUNT 440 X10'3 (140-440); WHITE BLOOD COUNT 17.6 X10'3 (4.5-11.0)
[2023-11-28 10:04] LABS: ALBUMIN 1.9 G/DL (3.4-5.0); BLOOD UREA NITROGEN 50 MG/DL (7-18); BUN/CREATININE RATIO 17.3 (10.0-20.0); CALCIUM 8.7 MG/DL (8.5-10.1); CHLORIDE 93 MMOL/L (99-107); CREATININE 2.89 MG/DL (0.40-0.90); MAGNESIUM 2.2 MG/DL (1.5-2.4); POTASSIUM 5.2 MMOL/L (3.5-5.1); SODIUM 129 MMOL/L (135-145); eCRCL 14 ML/MIN; eGFR 16 ML/MIN
[2023-11-28 10:06] LABS: ANION GAP 31 (8-16)
[2023-11-28 10:12] LABS: HEMOGLOBIN 10.6 g/dl (12.0-16.0); MEAN CORPUSCULAR HEMOGLOBIN 26.2 PG (27.0-31.0); MEAN CORPUSCULAR HGB CONC 33.2 g/dL (33.0-36.5); MEAN CORPUSCULAR VOLUME 78.7 FL (78-98); RED BLOOD COUNT 4.07 X10'6 (4.20-5.60); RED CELL DISTRIBUTION WIDTH 20.1 % (11.5-14.5)
[2023-11-28 10:28] LABS: GLUCOSE 1228 MG/DL (70-104); TOTAL CARBON DIOXIDE < 5 MMOL/L (24-32)
[2023-11-28] MEDS: MIDAZOLAM IN NACL,ISO-OSMOT/PF 100 ML IV PRN (10:31)
[2023-11-28] MEDS: insulin regular, human 10 units/0.1 ml syringe SQ ONE (10:39)
[2023-11-28] MEDS: insulin regular, human 10 units/0.1 ml syringe IV ONE (10:39)
[2023-11-28] MEDS: etomidate 2mg/ml inj. IV ONE (10:40)
[2023-11-28] MEDS: rocuronium 10mg/ml inj IV ONE (10:41)
[2023-11-28] MEDS: FENTANYL 1000MCG/NS 100 ML BAG /PF IV SCH (10:42)
[2023-11-28] MEDS: piperacillin/tazo 3.375gm/50ml 50 ML IV ONE (10:51)
[2023-11-28] MEDS: vancomycin/NS 1 GM ADD-VANTAGE 250 ML IV SCH (10:52)
[2023-11-28] MEDS ORDERED: sodium bicarbonate (8.4%) inj. 50 MEQ in dextrose 5% water 500ml 250 ML IV PRN (10:55)
[2023-11-28] MEDS ORDERED: potassium Cl 20 mEq SR tablet PO PRN ×2 (10:55)
[2023-11-28] MEDS ORDERED: Neutra Phos packet PO PRN (10:55)
[2023-11-28] MEDS ORDERED: potassium Cl 40MEQ/1/2NS 520ml 520 ML IV PRN (10:55)
[2023-11-28] MEDS ORDERED: sodium phosphate inj. 15 MMOL in dextrose 5%-water 250 ML IV PRN (10:55)
[2023-11-28] MEDS ORDERED: sodium phosphate inj. 30 MMOL in dextrose 5%-water 250 ML IV PRN (10:55)
[2023-11-28] MEDS: ringers solution, lactated 1000ml IV soln IV ONE (11:03)
[2023-11-28 11:19] LABS: ANISOCYTOSIS 3+; PLATELET ESTIMATE NORMAL
[2023-11-28 11:20] LABS: POIKILOCYTOSIS FEW
[2023-11-28] MEDS ORDERED: ATOR20TA PO (11:30)
[2023-11-28] MEDS ORDERED: ASPI-1397 PO (11:30)
[2023-11-28] MEDS ORDERED: CARV3.1244 PO (11:30)
[2023-11-28] MEDS ORDERED: INSU100V9 SQ (11:30)
[2023-11-28] MEDS ORDERED: SPIR25TA5 PO (11:30)
[2023-11-28] MEDS: Insulin Reg/NS 100units/100mL 100 ML IV SCH ×2 (11:36→18:43)
[2023-11-28 12:18] LABS: BILIRUBIN,URINE NEGATIVE (Neg); CLARITY,URINE CLOUDY (Clear); COLOR,URINE STRAW (Yellow); GLUCOSE, URINE >=1000 mg/dl (Neg); KETONES,URINE 15 mg/dl (Neg); LEUKOCYTE ESTERASE ,URINE SMALL (Neg); OCCULT BLOOD,URINE MODERATE (Neg); PROTEIN,URINE 100 mg/dl (Neg); UROBILINOGEN,URINE 0.2 E.U/dL (0.2-1.0)
[2023-11-28 12:21] LABS: NITRITES, URINE NEGATIVE (Neg); UA COLLECTION TYPE FOLEY CATH
[2023-11-28] MEDS: ringers solution, lacted 1,000 ML IV ONE (12:22)
[2023-11-28 12:24] LABS: BACTERIA,URINE 4+ /HPF (Neg); SQUAMOUS EPITHELIAL CELL,UR MODERATE /LPF (FEW); WBC,URINE TNTC /HPF (0-4)
[2023-11-28 12:25] LABS: RBC,URINE 50-100 /HPF (0-2); TRANSITIONAL EPI CELLS,URINE FEW /HPF
[2023-11-28 12:26] LABS: WBC CLUMPS,URINE FEW /HPF (NEGATIVE)
[2023-11-28 12:41] LABS: ABG BASE EXCESS -26.4 mmol/L (-2.0-3.0); ABG HCO3 6.7 mmol/L (21.0-28.0); ABG OXYGEN SATURATION 97.1 % (94.0-98.0); ABG PCO2 (T) 32.8 mmHg (32.0-45.0); ABG PO2 (T) 121.8 mmHg (83.0-108.0); ALLEN'S TEST POSITIVE; FCOHb 0.1 % (0.5-1.5); FHHb 2.9 % (0.0-5.0); FMetHb 0.2 % (0.0-1.5); FO2Hb 96.8 % (94.0-98.0); MODE VENT - PRVC; PATIENT TEMPERATURE 32.3; PEEP 5 cm H2O; RESPIRATORY RATE 12 b/min; TIDAL VOLUME 400 mL; TOTAL HEMOGLOBIN 10.6 G/dl (12.0-16.0)
[2023-11-28 13:10] LABS: ALBUMIN 1.6 G/DL (3.4-5.0); ANION GAP 24 (8-16); BLOOD UREA NITROGEN 52 MG/DL (7-18); BUN/CREATININE RATIO 18.3 (10.0-20.0); CALCIUM 8.3 MG/DL (8.5-10.1); CHLORIDE 100 MMOL/L (99-107); CREATININE 2.84 MG/DL (0.40-0.90); SODIUM 133 MMOL/L (135-145); eCRCL 14 ML/MIN; eGFR 16 ML/MIN
[2023-11-28 13:34] LABS: GLUCOSE 1170 MG/DL (70-104); TOTAL CARBON DIOXIDE 8.8 MMOL/L (24-32)
[2023-11-28 13:44] LABS: CREATINE KINASE 90 U/L (26-192)
[2023-11-28 14:01] LABS: HEMOGLOBIN A1C > 12.0 % (4.5-6.2)
[2023-11-28] MEDS: propofol 1000mg/100ml bottle 100 ML IV SCH (14:04)
[2023-11-28] MEDS: sodium bicarbonate (8.4%) inj. 100 MEQ in dextrose 5% water 500ml 500 ML IV PRN (14:04)
[2023-11-28 15:20] LABS: ABG BASE EXCESS -14.3 mmol/L (-2.0-3.0); ABG HCO3 11.4 mmol/L (21.0-28.0); ABG OXYGEN SATURATION 97.3 % (94.0-98.0); ABG PCO2 (T) 23.2 mmHg (32.0-45.0); ABG PH (T) 7.293 (7.350-7.450); ABG PO2 (T) 86.3 mmHg (83.0-108.0); ALLEN'S TEST POSITIVE; FCOHb 0.3 % (0.5-1.5); FHHb 2.7 % (0.0-5.0); FMetHb 0.3 % (0.0-1.5); FO2Hb 96.7 % (94.0-98.0); MODE VENT - AC; PATIENT TEMPERATURE 34.1; PEEP 5 cm H2O; RESPIRATORY RATE 20 b/min; TIDAL VOLUME 400 mL; TOTAL HEMOGLOBIN 10.1 G/dl (12.0-16.0)
[2023-11-28 15:45] LABS: ALANINE AMINOTRANSFERASE 19 U/L (12-78); ALBUMIN 1.6 G/DL (3.4-5.0); ALBUMIN/GLOBULIN RATIO 0.4 (1.1-1.5); ALKALINE PHOSPHATASE 143 IU/L (46-116); ANION GAP 19 (8-16); ASPARTATE AMINO TRANSFERASE 27 U/L (10-37); BILIRUBIN,TOTAL 0.4 MG/DL (0.1-1.0); BLOOD UREA NITROGEN 49 MG/DL (7-18); BUN/CREATININE RATIO 18.1 (10.0-20.0); CHLORIDE 101 MMOL/L (99-107); MAGNESIUM 1.5 MG/DL (1.5-2.4); PHOSPHORUS 5.7 MG/DL (2.3-4.5); SODIUM 135 MMOL/L (135-145); TOTAL PROTEIN 5.4 G/DL (6.4-8.2); eCRCL 15 ML/MIN; eGFR 17 ML/MIN
[2023-11-28 16:19] LABS: GLUCOSE 1100 MG/DL (70-104)
[2023-11-28] MEDS: insulin regular, human U-100 3ml vial - multi-dose IV PRN (16:30)
[2023-11-28] MEDS: piperacillin/tazo 3.375gm/50ml 50 ML IV SCH (16:34)
[2023-11-28] MEDS: ringers solution, lacted 1,000 ML IV SCH (16:39)
[2023-11-28 17:54] LABS: ALBUMIN 1.5 G/DL (3.4-5.0); ANION GAP 19 (8-16); BLOOD UREA NITROGEN 50 MG/DL (7-18); BUN/CREATININE RATIO 17.7 (10.0-20.0); CALCIUM 7.8 MG/DL (8.5-10.1); CHLORIDE 102 MMOL/L (99-107); CREATININE 2.83 MG/DL (0.40-0.90); POTASSIUM 3.5 MMOL/L (3.5-5.1); SODIUM 137 MMOL/L (135-145); TOTAL CARBON DIOXIDE 16.4 MMOL/L (24-32); eCRCL 14 ML/MIN; eGFR 16 ML/MIN
[2023-11-28 17:59] LABS: ABG BASE EXCESS -9.4 mmol/L (-2.0-3.0); ABG OXYGEN SATURATION 98.4 % (94.0-98.0); ABG PCO2 (T) 22.3 mmHg (32.0-45.0); ABG PH (T) 7.411 (7.350-7.450); ABG PO2 (T) 112.6 mmHg (83.0-108.0); ALLEN'S TEST POSITIVE; FCOHb 0.3 % (0.5-1.5); FHHb 1.6 % (0.0-5.0); FMetHb 0.3 % (0.0-1.5); FO2Hb 97.8 % (94.0-98.0); MODE VENT - AC; PATIENT TEMPERATURE 36.1; PEEP 5 cm H2O; RESPIRATORY RATE 20 b/min; TIDAL VOLUME 400 mL; TOTAL HEMOGLOBIN 9.7 G/dl (12.0-16.0)
[2023-11-28 18:03] LABS: GLUCOSE 861 MG/DL (70-104)
[2023-11-28] MEDS: albumin (human) 25% 100ml IV 400 ML IV ONE (18:23)
[2023-11-28] MEDS: NORepinephrine 8mg/ 250ml NS 250 ML IV SCH (18:24)
[2023-11-28] MEDS: albumin (Human) 5% 250ml 250 ML IV SCH (19:43)
[2023-11-28] MEDS ORDERED: K and/or MAG REPLACEMENT MC SCH (20:00)
[2023-11-28] MEDS: K and/or MAG REPLACEMENT MC SCH (20:00)
[2023-11-28] MEDS: pantoprazole 40 MG vial IV SCH (20:25)
[2023-11-28] MEDS: heparin, porcine 5000 units/ml vial SQ SCH (20:25)
[2023-11-28 21:26] LABS: ABG BASE EXCESS -8.7 mmol/L (-2.0-3.0); ABG HCO3 14.7 mmol/L (21.0-28.0); ABG OXYGEN SATURATION 98.2 % (94.0-98.0); ABG PH (T) 7.407 (7.350-7.450); ABG PO2 (T) 115.2 mmHg (83.0-108.0); FCOHb 0.5 % (0.5-1.5); FHHb 1.8 % (0.0-5.0); FMetHb 0.3 % (0.0-1.5); FO2Hb 97.4 % (94.0-98.0); MODE ac vc; PATIENT TEMPERATURE 37.4; PEEP 5 cm H2O; RESPIRATORY RATE 20 b/min; TIDAL VOLUME 400 mL; TOTAL HEMOGLOBIN 8.3 G/dl (12.0-16.0)
[2023-11-28 21:46] LABS: ALBUMIN 3.5 G/DL (3.4-5.0); ANION GAP 21 (8-16); BLOOD UREA NITROGEN 47 MG/DL (7-18); BUN/CREATININE RATIO 17.5 (10.0-20.0); CALCIUM 8.3 MG/DL (8.5-10.1); CHLORIDE 104 MMOL/L (99-107); CREATININE 2.68 MG/DL (0.40-0.90); PHOSPHORUS 2.2 MG/DL (2.3-4.5); SODIUM 141 MMOL/L (135-145); TOTAL CARBON DIOXIDE 15.7 MMOL/L (24-32); eCRCL 15 ML/MIN; eGFR 18 ML/MIN
[2023-11-28 21:51] LABS: GLUCOSE 568 MG/DL (70-104)
[2023-11-28] MEDS: potassium Cl 40MEQ/270ML bag 270 ML IV PRN (23:07)
[2023-11-28] MEDS: magnesium sulf-water 2g/50mL 50 ML IV PRN (23:19)
[2023-11-28] MEDS: sodium phosphate inj. 15 MMOL in normal saline 250ml IV soln 250 ML IV ONE (23:44)
[2023-11-29] VITALS (39 sets, daily range): BP systolic 91–156; BP diastolic 32–96; PULSE 76–101; RESP 16–25; O2SAT 95–99
[2023-11-29] MEDS: magnesium sulf-water 4G/100mL 100 ML IV PRN (01:04)
[2023-11-29 03:22] LABS: ABG BASE EXCESS -8.1 mmol/L (-2.0-3.0); ABG HCO3 15.5 mmol/L (21.0-28.0); ABG OXYGEN SATURATION 97.1 % (94.0-98.0); ABG PCO2 (T) 25.3 mmHg (32.0-45.0); ABG PH (T) 7.407 (7.350-7.450); ABG PO2 (T) 95.3 mmHg (83.0-108.0); FHHb 2.9 % (0.0-5.0); FMetHb 0.3 % (0.0-1.5); FO2Hb 95.8 % (94.0-98.0); MODE ac vc; PATIENT TEMPERATURE 37.1; PEEP 5 cm H2O; RESPIRATORY RATE 20 b/min; TIDAL VOLUME 400 mL; TOTAL HEMOGLOBIN 7.7 G/dl (12.0-16.0)
[2023-11-29] MEDS: potassium CL 20mEq in D5-1/2NS 1,000 ML IV PRN (06:13)
[2023-11-29] MEDS ORDERED: enoxaparin 40mg/0.4ml syringe SUBCUT SCH (08:00)
[2023-11-29 08:28] LABS: BASOPHILS % (AUTO) 0.2 % (0-1); EOSINOPHILS # (AUTO) 0.1 X10'3 (0-0.9); EOSINOPHILS % (AUTO) 1.3 % (0-6); HEMATOCRIT 23.8 % (35.0-45.0); HEMOGLOBIN 7.8 g/dl (12.0-16.0); LYMPHOCYTES # (AUTO) 1.8 X10'3 (1.1-4.8); LYMPHOCYTES % (AUTO) 23.1 % (21-51); MEAN CORPUSCULAR HEMOGLOBIN 25.5 PG (27.0-31.0); MEAN CORPUSCULAR HGB CONC 32.8 g/dL (33.0-36.5); MEAN CORPUSCULAR VOLUME 77.9 FL (78-98); MEAN PLATELET VOLUME 7.5 FL (7.4-10.4); MONOCYTES # (AUTO) 0.9 X10'3 (0-0.9); MONOCYTES % (AUTO) 10.8 % (2-12); NEUTROPHILS # (AUTO) 5.1 X10'3 (1.8-7.7); NEUTROPHILS % (AUTO) 64.6 % (42-75); PLATELET COUNT 240 X10'3 (140-440); RED BLOOD COUNT 3.06 X10'6 (4.20-5.60); RED CELL DISTRIBUTION WIDTH 20.8 % (11.5-14.5); WHITE BLOOD COUNT 7.9 X10'3 (4.5-11.0)
[2023-11-29 08:43] LABS: ALANINE AMINOTRANSFERASE 14 U/L (12-78); ALBUMIN 3.3 G/DL (3.4-5.0); ALBUMIN/GLOBULIN RATIO 1.3 (1.1-1.5); ALKALINE PHOSPHATASE 100 IU/L (46-116); ANION GAP 13 (8-16); ASPARTATE AMINO TRANSFERASE 25 U/L (10-37); BILIRUBIN,TOTAL 0.6 MG/DL (0.1-1.0); BLOOD UREA NITROGEN 38 MG/DL (7-18); BUN/CREATININE RATIO 20.8 (10.0-20.0); CALCIUM 7.9 MG/DL (8.5-10.1); CHLORIDE 115 MMOL/L (99-107); CREATININE 1.83 MG/DL (0.40-0.90); GLUCOSE 80 MG/DL (70-104); MAGNESIUM 2.8 MG/DL (1.5-2.4); PHOSPHORUS 2.6 MG/DL (2.3-4.5); POTASSIUM 4.1 MMOL/L (3.5-5.1); SODIUM 147 MMOL/L (135-145); TOTAL CARBON DIOXIDE 19.3 MMOL/L (24-32); TOTAL PROTEIN 5.8 G/DL (6.4-8.2); TRIGLYCERIDES 47 MG/DL (20-135); eCRCL 22 ML/MIN; eGFR 27 ML/MIN
[2023-11-29 08:50] LABS: ANISOCYTOSIS 3+; ELLIPTOCYTES FEW; HYPOCHROMASIA 1+; PLATELET ESTIMATE NORMAL; TARGET CELLS FEW; TOTAL CELLS COUNTED 100
[2023-11-29] MEDS: dextrose 50%-water 50ml dispensing syringe IV PRN (13:03)
[2023-11-29] MEDS: mineral oil/petrolatum ophthal oint EACHEYE SCH (14:00)
[2023-11-29 15:52] LABS: ALBUMIN 3.3 G/DL (3.4-5.0); ANION GAP 15 (8-16); BLOOD UREA NITROGEN 34 MG/DL (7-18); BUN/CREATININE RATIO 21.1 (10.0-20.0); CALCIUM 7.6 MG/DL (8.5-10.1); CHLORIDE 113 MMOL/L (99-107); CREATININE 1.61 MG/DL (0.40-0.90); GLUCOSE 139 MG/DL (70-104); MAGNESIUM 2.3 MG/DL (1.5-2.4); PHOSPHORUS 2.3 MG/DL (2.3-4.5); POTASSIUM 4.2 MMOL/L (3.5-5.1); SODIUM 147 MMOL/L (135-145); TOTAL CARBON DIOXIDE 18.7 MMOL/L (24-32); eCRCL 25 ML/MIN; eGFR 32 ML/MIN
[2023-11-29] MEDS: Potassium Cl inj 20 MEQ in DEXTROSE 10 % AND 0.45 % NACL 1,000 ML IV SCH (20:07)
[2023-11-29 20:45] LABS: ANION GAP 20 (8-16); BLOOD UREA NITROGEN 29 MG/DL (7-18); BUN/CREATININE RATIO 19.2 (10.0-20.0); CHLORIDE 109 MMOL/L (99-107); CREATININE 1.51 MG/DL (0.40-0.90); GLUCOSE 132 MG/DL (70-104); PHOSPHORUS 2.4 MG/DL (2.3-4.5); POTASSIUM 4.1 MMOL/L (3.5-5.1); SODIUM 147 MMOL/L (135-145); TOTAL CARBON DIOXIDE 17.9 MMOL/L (24-32); eCRCL 27 ML/MIN; eGFR 34 ML/MIN
[2023-11-30] VITALS (25 sets, daily range): BP systolic 84–158; BP diastolic 53–113; PULSE 58–115; RESP 18–32; O2SAT 89–99
[2023-11-30 02:43] LABS: BASOPHILS % (AUTO) 0.3 % (0-1); EOSINOPHILS # (AUTO) 0.2 X10'3 (0-0.9); EOSINOPHILS % (AUTO) 2.2 % (0-6); HEMATOCRIT 24.2 % (35.0-45.0); HEMOGLOBIN 7.7 g/dl (12.0-16.0); LYMPHOCYTES # (AUTO) 3.2 X10'3 (1.1-4.8); LYMPHOCYTES % (AUTO) 34.8 % (21-51); MEAN CORPUSCULAR HEMOGLOBIN 25.2 PG (27.0-31.0); MEAN CORPUSCULAR HGB CONC 31.9 g/dL (33.0-36.5); MEAN PLATELET VOLUME 7.7 FL (7.4-10.4); MONOCYTES # (AUTO) 0.4 X10'3 (0-0.9); MONOCYTES % (AUTO) 4.4 % (2-12); NEUTROPHILS # (AUTO) 5.4 X10'3 (1.8-7.7); NEUTROPHILS % (AUTO) 58.3 % (42-75); PLATELET COUNT 190 X10'3 (140-440); RED BLOOD COUNT 3.06 X10'6 (4.20-5.60); RED CELL DISTRIBUTION WIDTH 21.9 % (11.5-14.5); WHITE BLOOD COUNT 9.2 X10'3 (4.5-11.0)
[2023-11-30 02:51] LABS: ALANINE AMINOTRANSFERASE 11 U/L (12-78); ALBUMIN 2.8 G/DL (3.4-5.0); ALBUMIN/GLOBULIN RATIO 1.1 (1.1-1.5); ALKALINE PHOSPHATASE 100 IU/L (46-116); ANION GAP 21 (8-16); ASPARTATE AMINO TRANSFERASE 17 U/L (10-37); BILIRUBIN,TOTAL 0.3 MG/DL (0.1-1.0); BLOOD UREA NITROGEN 25 MG/DL (7-18); BUN/CREATININE RATIO 16.8 (10.0-20.0); CALCIUM 7.2 MG/DL (8.5-10.1); CHLORIDE 111 MMOL/L (99-107); CREATININE 1.49 MG/DL (0.40-0.90); GLUCOSE 184 MG/DL (70-104); MAGNESIUM 2.1 MG/DL (1.5-2.4); PHOSPHORUS 2.5 MG/DL (2.3-4.5); POTASSIUM 4.1 MMOL/L (3.5-5.1); SODIUM 147 MMOL/L (135-145); TOTAL CARBON DIOXIDE 15.3 MMOL/L (24-32); TOTAL PROTEIN 5.4 G/DL (6.4-8.2); eCRCL 27 ML/MIN; eGFR 34 ML/MIN
[2023-11-30 03:37] LABS: ANISOCYTOSIS 3+; MICROCYTOSIS 1+; PLATELET ESTIMATE NORMAL; POIKILOCYTOSIS 1+
[2023-11-30 03:38] LABS: BURR CELLS 3+; TARGET CELLS FEW
[2023-11-30 08:14] LABS: ALBUMIN 2.9 G/DL (3.4-5.0); ANION GAP 10 (8-16); BLOOD UREA NITROGEN 23 MG/DL (7-18); BUN/CREATININE RATIO 16.4 (10.0-20.0); CALCIUM 7.6 MG/DL (8.5-10.1); CHLORIDE 117 MMOL/L (99-107); GLUCOSE 184 MG/DL (70-104); PHOSPHORUS 2.3 MG/DL (2.3-4.5); POTASSIUM 4.8 MMOL/L (3.5-5.1); SODIUM 144 MMOL/L (135-145); TOTAL CARBON DIOXIDE 17.2 MMOL/L (24-32); eCRCL 29 ML/MIN; eGFR 37 ML/MIN
[2023-11-30] MEDS: iron sucrose complex injection 300 MG in normal saline 250ml IV soln 250 ML IV SCH (09:10)
[2023-11-30] MEDS: dexmedetomidin/NS 400mcg/100ml 100 ML IV SCH (11:39)
[2023-11-30 12:47] LABS: ALBUMIN 2.9 G/DL (3.4-5.0); ANION GAP 13 (8-16); BLOOD UREA NITROGEN 20 MG/DL (7-18); BUN/CREATININE RATIO 14.6 (10.0-20.0); CALCIUM 7.4 MG/DL (8.5-10.1); CHLORIDE 117 MMOL/L (99-107); CREATININE 1.37 MG/DL (0.40-0.90); GLUCOSE 277 MG/DL (70-104); MAGNESIUM 2.1 MG/DL (1.5-2.4); PHOSPHORUS 2.1 MG/DL (2.3-4.5); SODIUM 144 MMOL/L (135-145); eCRCL 30 ML/MIN; eGFR 38 ML/MIN
[2023-11-30 12:58] LABS: TOTAL CARBON DIOXIDE 14.3 MMOL/L (24-32)
[2023-11-30] MEDS: CefTRIAXone/D5W-Rocephin 1gm 50 ML IV SCH (13:35)
[2023-11-30] MEDS: insulin regular, human U-100 3ml vial - multi-dose SQ ONE (14:00)
[2023-11-30] MEDS: ringers solution, lacted 1,000 ML IV ONE (16:55)
[2023-11-30] MEDS: NUT.TX.GLUC.INTOLER,LAC-FR,SOY (GLUCERNA) 237 ML PO SCH (17:30)
[2023-11-30] MEDS ORDERED: glucagon, human recombinant 1mg kit SUBCUT PRN (17:50)
[2023-11-30] MEDS ORDERED: DEXTROSE 15 GM of carb/4 tabs (each vial/BOTTLE has 4 tablets) PO PRN ×2 (17:50)
[2023-11-30] MEDS: dextrose 50%-water 50ml dispensing syringe IV PRN (20:41)
[2023-11-30] MEDS: dextrose 5%-1/2 normal saline 1,000 ML IV SCH (20:42)
[2023-11-30 20:58] LABS: ALBUMIN 2.8 G/DL (3.4-5.0); ANION GAP 8 (8-16); BLOOD UREA NITROGEN 21 MG/DL (7-18); BUN/CREATININE RATIO 17.9 (10.0-20.0); CALCIUM 7.8 MG/DL (8.5-10.1); CHLORIDE 120 MMOL/L (99-107); CREATININE 1.17 MG/DL (0.40-0.90); GLUCOSE 70 MG/DL (70-104); PHOSPHORUS 2.8 MG/DL (2.3-4.5); SODIUM 145 MMOL/L (135-145); TOTAL CARBON DIOXIDE 17.5 MMOL/L (24-32); eCRCL 35 ML/MIN; eGFR 46 ML/MIN
[2023-11-30] MEDS: INSULIN LISPRO 100 UNIT/ML INSULN.PEN MULTI-DOSE SQ SCH (21:00)
[2023-11-30] MEDS: SODIUM ZIRCONIUM CYCLOSILICATE 10 GM POWD.PACK PO ONE (21:25)
[2023-11-30] MEDS: furosemide 20 MG/2 ML vial IV ONE (21:45)
[2023-11-30] MEDS: insulin regular, human U-100 3ml vial - multi-dose IV ONE (21:46)
[2023-12-01] VITALS (24 sets, daily range): BP systolic 80–150; BP diastolic 49–85; PULSE 56–78; RESP 16–32; O2SAT 94–100
[2023-12-01] MEDS ORDERED: sodium chloride inj. 154 MEQ in Dextrose 10%-water IV solution 961.5 ML IV SCH
[2023-12-01] MEDS: Dextrose 10%-water IV solution 1,000 ML IV SCH (00:26)
[2023-12-01 02:37] LABS: BASOPHILS % (AUTO) 0.2 % (0-1); EOSINOPHILS # (AUTO) 0.1 X10'3 (0-0.9); EOSINOPHILS % (AUTO) 1.2 % (0-6); HEMATOCRIT 26.1 % (35.0-45.0); HEMOGLOBIN 8.3 g/dl (12.0-16.0); LYMPHOCYTES # (AUTO) 2.6 X10'3 (1.1-4.8); LYMPHOCYTES % (AUTO) 29.2 % (21-51); MEAN CORPUSCULAR HGB CONC 31.8 g/dL (33.0-36.5); MEAN CORPUSCULAR VOLUME 78.6 FL (78-98); MONOCYTES # (AUTO) 0.4 X10'3 (0-0.9); MONOCYTES % (AUTO) 4.4 % (2-12); NEUTROPHILS # (AUTO) 5.9 X10'3 (1.8-7.7); PLATELET COUNT 166 X10'3 (140-440); RED BLOOD COUNT 3.32 X10'6 (4.20-5.60); RED CELL DISTRIBUTION WIDTH 22.7 % (11.5-14.5)
[2023-12-01 02:41] LABS: ALANINE AMINOTRANSFERASE 23 U/L (12-78); ALBUMIN 2.6 G/DL (3.4-5.0); ALBUMIN/GLOBULIN RATIO 0.9 (1.1-1.5); ALKALINE PHOSPHATASE 125 IU/L (46-116); ANION GAP 10 (8-16); ASPARTATE AMINO TRANSFERASE 37 U/L (10-37); BILIRUBIN,TOTAL 0.5 MG/DL (0.1-1.0); BLOOD UREA NITROGEN 19 MG/DL (7-18); BUN/CREATININE RATIO 15.4 (10.0-20.0); CALCIUM 8.1 MG/DL (8.5-10.1); CHLORIDE 119 MMOL/L (99-107); CREATININE 1.23 MG/DL (0.40-0.90); GLUCOSE 74 MG/DL (70-104); MAGNESIUM 1.8 MG/DL (1.5-2.4); PHOSPHORUS 2.4 MG/DL (2.3-4.5); POTASSIUM 5.3 MMOL/L (3.5-5.1); SODIUM 147 MMOL/L (135-145); TOTAL CARBON DIOXIDE 18.3 MMOL/L (24-32); TOTAL PROTEIN 5.4 G/DL (6.4-8.2); eCRCL 33 ML/MIN; eGFR 43 ML/MIN
[2023-12-01] MEDS: ringers solution, lacted 1,000 ML IV ONE (07:20)
[2023-12-01] MEDS: insulin regular, human 10 units/0.1 ml syringe SQ ONE (11:00)
[2023-12-01] MEDS: insulin regular, human U-100 3ml vial - multi-dose SQ ONE (11:02)
[2023-12-01] MEDS: furosemide 20 MG/2 ML vial IV ONE ×2 (11:04→19:17)
[2023-12-01 12:54] LABS: ALBUMIN 2.8 G/DL (3.4-5.0); ANION GAP 13 (8-16); BLOOD UREA NITROGEN 21 MG/DL (7-18); BUN/CREATININE RATIO 13.3 (10.0-20.0); CALCIUM 8.2 MG/DL (8.5-10.1); CHLORIDE 112 MMOL/L (99-107); CREATININE 1.58 MG/DL (0.40-0.90); MAGNESIUM 1.9 MG/DL (1.5-2.4); PHOSPHORUS 2.1 MG/DL (2.3-4.5); POTASSIUM 5.1 MMOL/L (3.5-5.1); SODIUM 141 MMOL/L (135-145); TOTAL CARBON DIOXIDE 16.1 MMOL/L (24-32); eCRCL 26 ML/MIN; eGFR 32 ML/MIN
[2023-12-01 13:02] LABS: GLUCOSE 439 MG/DL (70-104)
[2023-12-01] MEDS ORDERED: DEXTROSE 15 GM of carb/4 tabs (each vial/BOTTLE has 4 tablets) NG PRN ×2 (14:38)
[2023-12-01] MEDS: Neutra Phos packet NG PRN (15:47)
[2023-12-01] MEDS: insulin regular, human U-100 10ml vial - multi-dose SQ SCH (19:42)
[2023-12-01] MEDS ORDERED: insulin regular, human U-100 3ml vial - multi-dose SQ SCH (20:00)
[2023-12-01] MEDS: insulin glargine (Lantus) pen - multi-dose SQ SCH (20:52)
[2023-12-02] VITALS (24 sets, daily range): BP systolic 107–156; BP diastolic 56–82; PULSE 55–96; RESP 13–32; O2SAT 89–98
[2023-12-02 02:11] LABS: BASOPHILS % (AUTO) 0.4 % (0-1); EOSINOPHILS # (AUTO) 0.2 X10'3 (0-0.9); EOSINOPHILS % (AUTO) 2.7 % (0-6); HEMATOCRIT 24.3 % (35.0-45.0); HEMOGLOBIN 7.8 g/dl (12.0-16.0); LYMPHOCYTES # (AUTO) 1.9 X10'3 (1.1-4.8); LYMPHOCYTES % (AUTO) 29.1 % (21-51); MEAN CORPUSCULAR HEMOGLOBIN 25.3 PG (27.0-31.0); MEAN CORPUSCULAR HGB CONC 32.1 g/dL (33.0-36.5); MEAN CORPUSCULAR VOLUME 78.6 FL (78-98); MEAN PLATELET VOLUME 8.6 FL (7.4-10.4); MONOCYTES # (AUTO) 0.2 X10'3 (0-0.9); MONOCYTES % (AUTO) 3.3 % (2-12); NEUTROPHILS # (AUTO) 4.3 X10'3 (1.8-7.7); NEUTROPHILS % (AUTO) 64.5 % (42-75); PLATELET COUNT 145 X10'3 (140-440); RED BLOOD COUNT 3.09 X10'6 (4.20-5.60); WHITE BLOOD COUNT 6.6 X10'3 (4.5-11.0)
[2023-12-02 02:23] LABS: ALANINE AMINOTRANSFERASE 30 U/L (12-78); ALBUMIN 2.1 G/DL (3.4-5.0); ALBUMIN/GLOBULIN RATIO 0.8 (1.1-1.5); ALKALINE PHOSPHATASE 154 IU/L (46-116); ANION GAP 12 (8-16); ASPARTATE AMINO TRANSFERASE 92 U/L (10-37); BILIRUBIN,TOTAL 0.5 MG/DL (0.1-1.0); BLOOD UREA NITROGEN 23 MG/DL (7-18); BUN/CREATININE RATIO 20.4 (10.0-20.0); CALCIUM 7.3 MG/DL (8.5-10.1); CHLORIDE 117 MMOL/L (99-107); CREATININE 1.13 MG/DL (0.40-0.90); GLUCOSE 274 MG/DL (70-104); MAGNESIUM 1.4 MG/DL (1.5-2.4); PHOSPHORUS 2.6 MG/DL (2.3-4.5); SODIUM 146 MMOL/L (135-145); TOTAL CARBON DIOXIDE 17.1 MMOL/L (24-32); TOTAL PROTEIN 4.6 G/DL (6.4-8.2); eCRCL 36 ML/MIN; eGFR 47 ML/MIN
[2023-12-02 02:47] LABS: ANISOCYTOSIS 3+
[2023-12-02 02:48] LABS: MICROCYTOSIS 1+; PLATELET ESTIMATE NORMAL
[2023-12-02 02:50] LABS: BURR CELLS 1+; TARGET CELLS FEW
[2023-12-02 02:51] LABS: HYPOCHROMASIA 1+
[2023-12-02] MEDS ORDERED: magnesium Cl slow-release 64mg tablet PO PRN (02:55)
[2023-12-02] MEDS ORDERED: potassium Cl 20 mEq SR tablet PO PRN (02:55)
[2023-12-02] MEDS ORDERED: potassium Cl 40MEQ/1/2NS 520ml 520 ML IV PRN (02:55)
[2023-12-02] MEDS: magnesium sulf-water 2g/50mL 50 ML IV PRN (03:06)
[2023-12-02] MEDS: insulin regular, human U-100 10ml vial - multi-dose SQ ONE (04:14)
[2023-12-02] MEDS: magnesium sulf-water 4G/100mL 100 ML IV PRN (05:19)
[2023-12-02] MEDS: aspirin 81mg tab.chew NG SCH (08:13)
[2023-12-02] MEDS: atorvastatin 20mg tablet NG SCH (08:13)
[2023-12-02] MEDS: spironolactone 25 MG tablet NG SCH (08:14)
[2023-12-02] MEDS: insulin regular, human U-100 10ml vial - multi-dose SQ SCH (10:20)
[2023-12-02] MEDS ORDERED: ALPRAZolam 0.25mg tablet PO PRN (10:30)
[2023-12-02] MEDS: furosemide 40mg/4ml inj IV ONE (10:59)
[2023-12-02] MEDS ORDERED: ferrous sulfate 325mg tablet PO SCH (12:30)
[2023-12-02] MEDS: ascorbic acid 500mg tablet PO SCH (12:34)
[2023-12-02] MEDS ORDERED: DEXTROSE 15 GM of carb/4 tabs (each vial/BOTTLE has 4 tablets) PO PRN ×2 (14:59→15:00)
[2023-12-02] MEDS ORDERED: Neutra Phos packet PO PRN (15:00)
[2023-12-02] MEDS: ferrous sulfate 300mg/5ml UD oral liquid PO SCH (18:02)
[2023-12-03] VITALS (10 sets, daily range): BP systolic 131–158; BP diastolic 64–79; PULSE 80–102; RESP 18–30; TEMP 97.9–99.5; O2SAT 93–99
[2023-12-03] MEDS: ALPRAZolam 0.5mg tablet PO PRN (01:09)
[2023-12-03 03:07] LABS: BASOPHILS % (AUTO) 0.4 % (0-1); EOSINOPHILS # (AUTO) 0.1 X10'3 (0-0.9); EOSINOPHILS % (AUTO) 1.6 % (0-6); HEMATOCRIT 27.7 % (35.0-45.0); LYMPHOCYTES # (AUTO) 2.7 X10'3 (1.1-4.8); LYMPHOCYTES % (AUTO) 36.8 % (21-51); MEAN CORPUSCULAR HEMOGLOBIN 25.3 PG (27.0-31.0); MEAN CORPUSCULAR HGB CONC 32.4 g/dL (33.0-36.5); MEAN PLATELET VOLUME 8.2 FL (7.4-10.4); MONOCYTES # (AUTO) 0.5 X10'3 (0-0.9); MONOCYTES % (AUTO) 6.7 % (2-12); NEUTROPHILS # (AUTO) 3.9 X10'3 (1.8-7.7); NEUTROPHILS % (AUTO) 54.5 % (42-75); PLATELET COUNT 205 X10'3 (140-440); RED BLOOD COUNT 3.55 X10'6 (4.20-5.60); RED CELL DISTRIBUTION WIDTH 23.2 % (11.5-14.5); WHITE BLOOD COUNT 7.2 X10'3 (4.5-11.0)
[2023-12-03 03:14] LABS: ALANINE AMINOTRANSFERASE 36 U/L (12-78); ALBUMIN 2.7 G/DL (3.4-5.0); ALBUMIN/GLOBULIN RATIO 0.9 (1.1-1.5); ALKALINE PHOSPHATASE 205 IU/L (46-116); ANION GAP 14 (8-16); ASPARTATE AMINO TRANSFERASE 39 U/L (10-37); BILIRUBIN,TOTAL 0.4 MG/DL (0.1-1.0); BLOOD UREA NITROGEN 32 MG/DL (7-18); BUN/CREATININE RATIO 24.6 (10.0-20.0); CALCIUM 8.6 MG/DL (8.5-10.1); CHLORIDE 107 MMOL/L (99-107); GLUCOSE 64 MG/DL (70-104); MAGNESIUM 2.4 MG/DL (1.5-2.4); PHOSPHORUS 2.7 MG/DL (2.3-4.5); POTASSIUM 3.3 MMOL/L (3.5-5.1); SODIUM 144 MMOL/L (135-145); TOTAL CARBON DIOXIDE 23.1 MMOL/L (24-32); TOTAL PROTEIN 5.8 G/DL (6.4-8.2); eCRCL 31 ML/MIN; eGFR 40 ML/MIN
[2023-12-03 04:09] LABS: PLATELET ESTIMATE NORMAL
[2023-12-03 04:10] LABS: ANISOCYTOSIS 3+; MICROCYTOSIS 1+; ROULEAUX 1+
[2023-12-03] MEDS: potassium Cl 20 mEq SR tablet PO PRN (04:45)
[2023-12-03] MEDS: spironolactone 25 MG tablet PO SCH (08:38)
[2023-12-03] MEDS: carVEDilol 3.125mg tablet PO SCH (08:40)
[2023-12-03] MEDS: atorvastatin 20mg tablet PO SCH (08:42)
[2023-12-03] MEDS: aspirin 81mg tab.chew PO SCH (08:43)
[2023-12-03] MEDS: fondaparinux 2.5 MG/0.5 ML syringe SUBCUT SCH (09:27)
[2023-12-04 02:00] VITALS: BP 119/56; PULSE 85; RESP 16; TEMP 99.4; O2SAT 97
[2023-12-04 06:43] LABS: BASOPHILS % (AUTO) 0.3 % (0-1); EOSINOPHILS # (AUTO) 0.3 X10'3 (0-0.9); HEMATOCRIT 27.8 % (35.0-45.0); HEMOGLOBIN 8.9 g/dl (12.0-16.0); LYMPHOCYTES # (AUTO) 3.5 X10'3 (1.1-4.8); LYMPHOCYTES % (AUTO) 48.2 % (21-51); MEAN CORPUSCULAR HEMOGLOBIN 25.2 PG (27.0-31.0); MEAN CORPUSCULAR HGB CONC 31.8 g/dL (33.0-36.5); MEAN CORPUSCULAR VOLUME 79.2 FL (78-98); MEAN PLATELET VOLUME 8.8 FL (7.4-10.4); MONOCYTES # (AUTO) 0.7 X10'3 (0-0.9); MONOCYTES % (AUTO) 10.1 % (2-12); NEUTROPHILS # (AUTO) 2.7 X10'3 (1.8-7.7); NEUTROPHILS % (AUTO) 37.4 % (42-75); PLATELET COUNT 207 X10'3 (140-440); RED BLOOD COUNT 3.51 X10'6 (4.20-5.60); WHITE BLOOD COUNT 7.2 X10'3 (4.5-11.0)
[2023-12-04 06:45] LABS: ALANINE AMINOTRANSFERASE 24 U/L (12-78); ALBUMIN 2.7 G/DL (3.4-5.0); ALBUMIN/GLOBULIN RATIO 0.8 (1.1-1.5); ALKALINE PHOSPHATASE 172 IU/L (46-116); ANION GAP 11 (8-16); ASPARTATE AMINO TRANSFERASE 15 U/L (10-37); BILIRUBIN,TOTAL 0.4 MG/DL (0.1-1.0); BLOOD UREA NITROGEN 29 MG/DL (7-18); BUN/CREATININE RATIO 25.2 (10.0-20.0); CALCIUM 8.5 MG/DL (8.5-10.1); CHLORIDE 111 MMOL/L (99-107); CREATININE 1.15 MG/DL (0.40-0.90); MAGNESIUM 1.7 MG/DL (1.5-2.4); PHOSPHORUS 1.9 MG/DL (2.3-4.5); POTASSIUM 3.8 MMOL/L (3.5-5.1); PREALBUMIN 16.1 MG/DL (19-36); SODIUM 145 MMOL/L (135-145); TOTAL CARBON DIOXIDE 22.6 MMOL/L (24-32); eCRCL 35 ML/MIN; eGFR 47 ML/MIN
[2023-12-04 06:50] LABS: GLUCOSE 33 MG/DL (70-104)
[2023-12-04] MEDS: dextrose 50%-water 50ml dispensing syringe IV PRN (06:59)
[2023-12-04] MEDS: insulin glargine (Lantus) pen - multi-dose SQ SCH (07:10)
[2023-12-04] MEDS ORDERED: DEXTROSE 15 GM of carb/4 tabs (each vial/BOTTLE has 4 tablets) PO PRN ×2 (07:15)
[2023-12-04] MEDS ORDERED: glucagon, human recombinant 1mg kit SUBCUT PRN (07:15)
[2023-12-04] MEDS ORDERED: dextrose 50%-water 50ml dispensing syringe IV PRN ×2 (07:15)
[2023-12-04] MEDS ORDERED: VANCOMYCIN LEVEL IV ONE (07:30)
[2023-12-04] MEDS: INSULIN LISPRO 100 UNIT/ML INSULN.PEN MULTI-DOSE SQ SCH ×3 (07:30→13:18)
[2023-12-04 08:00] VITALS: RESP 18; O2SAT 97
[2023-12-04 08:19] VITALS: BP 148/70; PULSE 73; RESP 18; TEMP 97.6; O2SAT 95
[2023-12-04 08:24] LABS: TOTAL CELLS COUNTED 100
[2023-12-04 08:27] LABS: ANISOCYTOSIS 3+; MICROCYTOSIS 1+; PLATELET ESTIMATE NORMAL
[2023-12-04] MEDS: aspirin 81mg tab.chew PO SCH (10:57)
[2023-12-04 11:23] VITALS: BP 131/83; PULSE 85; RESP 21; TEMP 96.8; O2SAT 96
[2023-12-04] MEDS: ascorbic acid 500mg tablet PO SCH (13:16)
[2023-12-04 15:00] VITALS: BP 131/61; PULSE 86; RESP 26; TEMP 98.8; O2SAT 95
[2023-12-04] MEDS ORDERED: INSULIN LISPRO 100 UNIT/ML INSULN.PEN MULTI-DOSE SQ SCH (17:30)
== END 2023-12-04 18:00 | DRG 871 ==
LOC: ER 08:05 → ED HOLD 11:20 → UNDOADMIN 11:58 → ED HOLD 11:58 → CICU 2S 13:28 → ED HOLD 13:28 → PCU 3S 12-03 04:25
PROVIDERS: ADMIT Internal Medicine Critical Care Medicine; ATTEND Internal Medicine Critical Care Medicine
PROC: 5A1945Z Respiratory Ventilation, 24-96 Consecutive Hours (ICD-10-PCS; principal; 2023-11-28)
PROC: 0BH17EZ Insertion of Endotracheal Airway into Trachea, Via Natural or Artificial Opening (ICD-10-PCS; 2023-11-28)
DX: A41.9 Sepsis, unspecified organism (principal); E11.10 Type 2 diabetes mellitus with ketoacidosis without coma; R65.21 Severe sepsis with septic shock; R57.1 Hypovolemic shock; I50.33 Acute on chronic diastolic (congestive) heart failure; G93.41 Metabolic encephalopathy; J96.00 Acute respiratory failure, unspecified whether with hypoxia or hypercapnia; N17.9 Acute kidney failure, unspecified; N39.0 Urinary tract infection, site not specified; E87.0 Hyperosmolality and hypernatremia; I13.0 Hypertensive heart and chronic kidney disease with heart failure and stage 1 through stage 4 chronic kidney disease, or unspecified chronic kidney disease; E87.6 Hypokalemia; E86.0 Dehydration; E83.42 Hypomagnesemia; D50.9 Iron deficiency anemia, unspecified; E11.22 Type 2 diabetes mellitus with diabetic chronic kidney disease; F03.90 Unspecified dementia, unspecified severity, without behavioral disturbance, psychotic disturbance, mood disturbance, and anxiety; I25.10 Atherosclerotic heart disease of native coronary artery without angina pectoris; E83.51 Hypocalcemia; E87.8 Other disorders of electrolyte and fluid balance, not elsewhere classified; E88.09 Other disorders of plasma-protein metabolism, not elsewhere classified; L60.3 Nail dystrophy; B96.20 Unspecified Escherichia coli [E. coli] as the cause of diseases classified elsewhere; N18.9 Chronic kidney disease, unspecified; Z79.4 Long term (current) use of insulin; Z87.891 Personal history of nicotine dependence; Z95.1 Presence of aortocoronary bypass graft; Z88.6 Allergy status to analgesic agent
CPT/HCPCS: 36410; 36415; 36600; 71045; 74018; 76937; 80048; 80053; 81001; 82550; 82803; 82948; 83036; 83605; 83735; 84100; 84134; 84145; 84478; 85007; 85008; 85018; 85025; 87040; 87077; 87081; 87088; 87186; 87324; 87449; 92508; 92616; 93005; 94002; 94003; 94760; 94799; 97110; 97116; 97161; 97530; 99291; A4615; A4620; A5200; A6212; A6213; A6258; A6449; A9900; C1751; C1758; G0378; J0696; J1644; J1652; J1756; J1815; J1940; J2470; J2543; J2704; J3010; J3370; J3475; J3480; J3490; J7030; J7040; J7050; J7060; J7120; P9045; P9047

== ENCOUNTER 2024-02-24 15:44 | Emergency (ER) | payer MEDICARE, MEDICAID ==
[~2024-02-24] VITALS: Ht 154.9 cm; Wt 57.0 kg
[~2024-02-24 15:44] MED LIST changes: +ASPI-1397 PO; +ATOR20TA PO; -ATOR20TA66 PO; -CARV3.122 PO; +CARV3.1244 PO; -FA/M1TAB PO; +INSU100V9 SQ; -LANTUS SQ; +LEVO-65 PO; -SPIR25TA PO
[2024-02-24 18:48] VITALS: BP 134/84; PULSE 81; RESP 15; TEMP 97.9; O2SAT 98
== END 2024-02-24 18:51 | disposition home or self-care (01) ==
LOC: ER 15:45
DX: F03.90 Unspecified dementia, unspecified severity, without behavioral disturbance, psychotic disturbance, mood disturbance, and anxiety (principal); I25.10 Atherosclerotic heart disease of native coronary artery without angina pectoris; I25.2 Old myocardial infarction; E11.22 Type 2 diabetes mellitus with diabetic chronic kidney disease; I13.0 Hypertensive heart and chronic kidney disease with heart failure and stage 1 through stage 4 chronic kidney disease, or unspecified chronic kidney disease; I50.9 Heart failure, unspecified; N18.9 Chronic kidney disease, unspecified; M19.90 Unspecified osteoarthritis, unspecified site; R51.9 Headache, unspecified; Z95.1 Presence of aortocoronary bypass graft; Z88.8 Allergy status to other drugs, medicaments and biological substances; Z79.1 Long term (current) use of non-steroidal anti-inflammatories (NSAID); Z79.4 Long term (current) use of insulin; Z79.899 Other long term (current) drug therapy; W18.39XA Other fall on same level, initial encounter; Y93.89 Activity, other specified; Y92.89 Other specified places as the place of occurrence of the external cause; Y99.8 Other external cause status
CPT/HCPCS: 70450; 72125; 99284

== ENCOUNTER 2024-03-19 06:09 | Emergency (ER) | payer MEDICARE, MEDICAID ==
[~2024-03-19] VITALS: Ht 154.9 cm; Wt 54.0 kg
[~2024-03-19 06:09] MED LIST changes: +CIPR-259 PO; -LEVO-65 PO; +UNABLE TO OBTAIN
[2024-03-19 06:20] VITALS: TEMP 97.4
[2024-03-19 07:42] LABS: BASOPHILS % (AUTO) 0.3 % (0-1); EOSINOPHILS % (AUTO) 0.2 % (0-6); HEMATOCRIT 37.4 % (35.0-45.0); HEMOGLOBIN 12.3 g/dl (12.0-16.0); LYMPHOCYTES # (AUTO) 1.3 X10'3 (1.1-4.8); LYMPHOCYTES % (AUTO) 12.4 % (21-51); MEAN CORPUSCULAR HEMOGLOBIN 29.8 PG (27.0-31.0); MEAN CORPUSCULAR VOLUME 90.1 FL (78-98); MEAN PLATELET VOLUME 9.3 FL (7.4-10.4); MONOCYTES # (AUTO) 0.6 X10'3 (0-0.9); MONOCYTES % (AUTO) 6.1 % (2-12); NEUTROPHILS # (AUTO) 8.6 X10'3 (1.8-7.7); PLATELET COUNT 279 X10'3 (140-440); RED BLOOD COUNT 4.15 X10'6 (4.20-5.60); RED CELL DISTRIBUTION WIDTH 15.9 % (11.5-14.5); WHITE BLOOD COUNT 10.7 X10'3 (4.5-11.0)
[2024-03-19 08:03] LABS: ALBUMIN 2.5 G/DL (3.4-5.0); ANION GAP 8 (8-16); BLOOD UREA NITROGEN 17 MG/DL (7-18); BUN/CREATININE RATIO 12.1 (10.0-20.0); CALCIUM 8.5 MG/DL (8.5-10.1); CHLORIDE 108 MMOL/L (99-107); GLUCOSE 164 MG/DL (70-104); POTASSIUM 4.3 MMOL/L (3.5-5.1); SODIUM 139 MMOL/L (135-145); TOTAL CARBON DIOXIDE 23.5 MMOL/L (24-32); eCRCL 28 ML/MIN; eGFR 37 ML/MIN
[2024-03-19 08:06] LABS: BILIRUBIN,URINE NEGATIVE (Neg); CLARITY,URINE SLIGHTLY CLOUDY (Clear); COLOR,URINE YELLOW (Yellow); GLUCOSE, URINE 500 mg/dl (Neg); KETONES,URINE NEGATIVE (Neg); LEUKOCYTE ESTERASE ,URINE MODERATE (Neg); NITRITES, URINE NEGATIVE (Neg); OCCULT BLOOD,URINE SMALL (Neg); PH,URINE 6.5 (4.8-8.0); PROTEIN,URINE >=300 mg/dl (Neg); UROBILINOGEN,URINE 0.2 E.U/dL (0.2-1.0)
[2024-03-19 08:17] LABS: UA COLLECTION TYPE STRAIGHT CATH
[2024-03-19 08:23] LABS: WBC,URINE TNTC /HPF (0-4)
[2024-03-19 08:24] LABS: BACTERIA,URINE 2+ /HPF (Neg); MUCUS STRANDS NONE SEEN /LPF (Neg); RBC,URINE 0-2 /HPF (0-2); SQUAMOUS EPITHELIAL CELL,UR FEW /LPF (FEW); WBC CLUMPS,URINE MODERATE /HPF (NEGATIVE)
[2024-03-19] MEDS ORDERED: CEFU250T95 PO (09:40)
[2024-03-19] MEDS: CefTRIAXone/D5W-Rocephin 1gm 50 ML IV ONE (09:48)
[2024-03-19] MEDS: normal saline 1000ML IV soln IVB ONE (09:48)
[2024-03-19 11:16] VITALS: BP 154/85; PULSE 87; RESP 16; O2SAT 97
== END 2024-03-19 11:19 | disposition home or self-care (01) ==
LOC: ER 06:09
DX: E11.649 Type 2 diabetes mellitus with hypoglycemia without coma (principal); E11.22 Type 2 diabetes mellitus with diabetic chronic kidney disease; N39.0 Urinary tract infection, site not specified; I13.0 Hypertensive heart and chronic kidney disease with heart failure and stage 1 through stage 4 chronic kidney disease, or unspecified chronic kidney disease; I25.10 Atherosclerotic heart disease of native coronary artery without angina pectoris; F03.90 Unspecified dementia, unspecified severity, without behavioral disturbance, psychotic disturbance, mood disturbance, and anxiety; I50.9 Heart failure, unspecified; N18.9 Chronic kidney disease, unspecified; M06.9 Rheumatoid arthritis, unspecified; F17.210 Nicotine dependence, cigarettes, uncomplicated; Z88.6 Allergy status to analgesic agent; Z95.1 Presence of aortocoronary bypass graft; Z79.82 Long term (current) use of aspirin
CPT/HCPCS: 36415; 80048; 81001; 82948; 84145; 85025; 87088; 96365; 99284; A4353; J0696; J7030; A6250